=== PATIENT | female | born 1955 | race Caucasian/White ===

== ENCOUNTER → 2017-05-03 09:42 | Day surgery (SDC) | payer BC ==
[~2017-05-03 09:42] MED LIST: Buffered Lidocaine 0.9% SYRIN* 5 ML/SYR SYRINGE INTRADERM ONE; Buffered Lidocaine 0.9% SYRIN* 5 ML/SYR SYRINGE ONE; Dexamethasone IV* 4 MG/ML 1 ML (4 MG) IV SLOW PU ONE; Dexamethasone IV* 4 MG/ML 1 ML (4 MG) ONE; Famotidine IV* 10 MG/ML 2 ML (20 mg) IV ONE; Famotidine IV* 10 MG/ML 2 ML (20 mg) ONE; HYDROcodone/ACETAMIN 5-325 MG* 1 TAB PO PRN; Ketorolac INJ* 30 MG/ML 1 ML VIAL IV PRN; Ketorolac INJ* 30 MG/ML 1 ML VIAL ONE; Lidocaine 2% PF * 5 ML VIAL ONE; Midazolam* 1 MG/ML 5 ML VIAL (5 MG) ONE; Mivacurium Chloride* 20 MG/10 ML VIAL IV ONE; Ondansetron INJ* 2 MG/ML VIAL ONE; PROCHLORPERAZINE INJ 5 MG/ML 2 ML VIAL IV PRN; Propofol* 10 MG/ML 20 ML BTL IV PUSH ONE; fentaNYL* 50 MCG/ML 2 ML VIAL (100 MCG VIAL) IV PRN; fentaNYL* 50 MCG/ML 2 ML VIAL (100 MCG VIAL) ONE; oxyCODONE/Acetamin 5/325 MG* TAB PO PRN
[2017-05-03 14:57] VITALS: BP 141/77
--- NOTE | 2017-05-03 19:42 | OP ---
DATE OF OPERATION: 05/03/17 - [facility] DATE OF : 59 SURGEON: Giuseppe Figueroa MD ANESTHESIOLOGIST: Rodrigo Bruno MD ANESTHESIA: General PRE-OP DIAGNOSIS: Lymph node enlargement, fine needle aspiration was not definitive for neoplasm. POST-OP DIAGNOSIS: Lymph node enlargement, fine needle aspiration was not definitive for neoplasm. OPERATIVE PROCEDURE: Left open deep jugular node resection. INDICATIONS: This 62-year-old female presented with left neck lymph node. Fine needle aspiration was nonconclusive, elected for surgical excision. DESCRIPTION OF PROCEDURE: The patient was taken to the operating room, general anesthesia was given, the patient was intubated. Left neck was then prepped and draped in the usual fashion. A curvilinear incision was made approximately 2 cm below the angle of the mandible. Subplatysmal flaps were elevated. Sternocleidomastoid was identified and retracted out laterally. Deep jugular node was identified. Careful blunt and sharp dissection was carried out of two large nodes. These were removed. The wound was copiously irrigated. Small TLS drain was then inserted. Wound closed in two layers. Small dressing was applied. The patient was awakened and sent to recovery room in stable condition. Instrument and sponge counts correct. Blood loss minimal. [id number]/[facility] #: [id number] [facility]
[2017-05-05 18:12] LABS: HS/VZ Source NECK; Varicella Zoster Result Negative (Negative); Varicella Zoster Source NECK
[2017-05-09 17:59] LABS: BLYMF Source Left neck LN; BLYMF Tissue ID S17 11483 C
== END | disposition home or self-care (01) ==
LOC: OR 09:42
PROVIDERS: ATTEND Otolaryngology
DX: C83.31 Diffuse large B-cell lymphoma, lymph nodes of head, face, and neck (principal); K21.9 Gastro-esophageal reflux disease without esophagitis; F41.9 Anxiety disorder, unspecified
CPT/HCPCS: 87070; 87102; 87116; 87205; 87206; 87252; 87529; 87798; 88184; 88185; 88188; 88271; 88291; 88307; 88341; 88342; J1100; J1885; J2250; J2405; J2704; J3010

== ENCOUNTER 2017-12-09 19:26 | Emergency (ER) | payer BC ==
--- OUTSIDE RECORDS SUMMARY | 2017-12-09 19:32 | XMS REPORT | Continuity of Care Document ---
:1955 Author Organization [facility] Support Name Relationship Address Phone HOA THORNTON spouse [address] [place] [address] HOA THORNTON spouse [address] [place] [address] Allergies and Intolerances No Known Allergies Medications RxNorm Medication Dose Route Instructions Start Date End Date Status citracal 1 oral orally qday Active fish oil 1200mg oral orally qday Active garlic 1 oral orally qday Active glucosamine 1 oral orally qday Active mvi 1 oral orally qday Active [id number] Simvastatin 40 MG 40 mg oral orally every day Active Oral Tablet Problems Code Code System Problem Name Start Date End Date Status [id number] SNOMED-CT Sleep apnea U Active Procedures Code Code System Procedure Date BREAST BX U TUBAL LIGATION 1993 Results Microbiology Results w Susceptibilities Order: CULTURE URINE Specimen Source: Urine Body Site: Urine specimen collection, clean catchCultural Observations:Rare colonies of mixed growth consistent with vaginal jose [id number] Lab Footnotes:[facility] - [id number] - [address] [place] [address] ARMANI [id number] Order: CULTURE VAGINAL-CERVICAL Specimen Source: Swab Body Site: Entire vaginaDirect Exam:Microscopic evaluation is NOT characteristic of bacterial [id number] Observations:Yeast, Staphylococcus aureus, Streptococcus agalactiae (Group B), or [id number] were NOT isolated.1Performing Lab Footnotes:[facility] - [id number] - [address] [place] [address] ARMANI PHILIPPEOMDejah Social History Code Code System Social History Description Dates Observed Observation [id number] SNOMED CT Current Smoking Unknown if ever Status smoked UNK AdministrativeGender Sex Assigned At Unknown Vital Signs No data in the system Goals Section No data in the system Health Concerns No data in the systemEncounter Diagnosis Date Code Code System Diagnosis Status N76.0 ICD10 ACUTE VAGINITIS Active Advance Directives PT STATES NO ADVANCE DIRECTIVES Directive Type Effective Date Second Worker Notes Supporting Document Name Address Phone No Directive Type 04/30/2012 8:30:00 Not Specified Not Specified Not Specified None No specified AM Family History No data in the system Functional Status No data in the system Immunizations No data in the system Medical Equipment No data in the system Mental Status No data in the system Assessment and Plan Assessments No data in the systemPlan Of Treatment No data in the systemPending Tests No data in the system Hospital Discharge Instructions No data in the system Reason for Visit No data in the system
--- OUTSIDE RECORDS SUMMARY | 2017-12-09 19:34 | XMS REPORT ---
:1955 External Reference #:[id number] Author Organization 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 Payers Type Date Identification Numbers Payment Provider Subscriber Health Maintenance Effective: [facility] ([facility] [place] 05/26/2014 [id number] PayID: [id number] [address] [address] MARGARETTE Michael [address] Medigap Part B Effective: 09/26/2009 Policy Number: BCBS [facility] Isaiah Savage [id number] Expires: 05/28/2010 PayID: [id number] [address] [address] MARGARET[place] Michael [address] Problems Date Description Provider Status Onset: 10/11/2017 Reticulosarcoma of lymph nodes of head, 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 Note: s/p L lymph node mass excisional biopsy -- 05/2017 s/p Chemo and Radiation -- early 2017 Onset: 10/11/2017 Mixed hyperlipidemia Nico Lion PA Active Onset: 08/20/2012 Obstructive sleep apnea syndrome Mia Rojas MD Active Onset: 08/20/2012 Mild major depression, single episode Mia Rojas MD Active Onset: 04/17/2017 Gastro-esophageal reflux disease with Mia Rojas MD Active esophagitis Onset: 11/20/2017 Gastro-esophageal reflux disease with Mia Rojas MD Active esophagitis Family History Date Family Member(s) Problem(s) Comments Mother Hypertension Mother Diabetes, Adult Mother Hypercholesterolemia Vilma Sedorus First Daughter Cancer, Breast Maternal Aunts Diabetes, Adult Social History Type Date Description Comments Occupation Currently Working [employer] Cigarette Use Never Smoked Cigarettes Smoking Patient has never smoked Allergies, Adverse Reactions, Alerts Date Description Reaction Status Severity Comments 03/04/2005 NKDA active Medications Medication Date Status Form Strength Qnty SIG Indications Ordering Provider Amoxicillin 11/28 Active Tablets 875mg 14tabs 1 by J01.00 Crystal mouth Mia twice a MD Antonio day Fluticasone 11/28 Active Suspension 50mcg/Act 48gm 2 sprays J01.00 Crystal in each Mia nostril MD Antonio daily Shingrix 11/20 Active Suspension 50mcg 2units 2 shot Crystal Rec series Mia Alvarez MD Vitamin D 04/17 Active Capsules 2000Unit 1 by E55.9 Crystal mouth Mia every day MD Antonio Bupropion HCL ER 12/05 Active Tablets ER 300mg 30tabs take 1 F32.0 Crystal, () 24HR tablet by Mia mouth MD Antonio once daily Simvastatin 01/17 Active Tablets 40mg 30tabs take one E78.2 tablet by Mia mouth at MD Antonio bedtime Omeprazole 11/[address] 40mg 30caps take 1 K21.0 capsule Mia by mouth MD Antonio once daily Aspirin Ec 10/[address] 81mg 1 by angella mouth Mia every day MD Antonio Glucosamine 07/09 Active Tablets Two Tab Curtis, Chondroitin Daily Avani Triple Strength C, RN MS [employer]OWAVE TECHNICIAN [place]-3 06/03 Active Capsules 1000mg 2 PO bid E78.2 Crystal Mia Alvarez MD Epa/Dha Azithromycin 03/20 Hx Tablets 500mg 5tabs 1 by J01.90 mouth Mia - every day MD Antonio 03/25 Sertraline HCL 01/16 Hx Tablets 25mg 1/2 by F41.1 Crystal mouth Mia - every day MD Antonio 04/17 x 6 d then off Bupropion HCL ER 12/05 Hx Tablets ER 150mg 7tabs take one F32.0 Crystal , (XL) 24HR tablet by Mia - mouth MD Antonio 01/16 morning Simvastatin 01/17 Hx Tablets 20mg 90tabs take one E78.0 tablet by Mia - mouth at MD Antonio 01/17 bedtime Sertraline HCL 01/17 Hx Tablets 50mg 30tabs 1 by F41.1 Crystal mouth Mia - every day MD Antonio 01/16 Metaxalone 10/22 Hx Tablets 400mg 30tabs 1 by M25.511 Crystal mouth Mia - twice a MD Antonio 01/17 day as needed muscle spasm and 1-2 every night at bedtime as needed Famotidine 10/04 Hx Tablets 20mg 180tabs take one K21.9 Crystal tablet by Mia - mouth MD Antonio 11/01 twice a day Vitamin D3 10/04 Hx Capsules 1000Unit 1 by E55.9 Crystal mouth Mia - every day MD Antonio 04/17 Augmentin 07/09 Hx Tablets 875-125mg 20tabs 1 by J01.00 Curtis mouth Avani - twice a CBRENT MS 09/24 day c MICROWAVE TECHNICIAN food Cyclobenzaprine 06/08 Hx Tablets 10mg 30tabs take 05/30 M54.2 Crystal HCL to 1 Mia - tablet MD Antonio 07/09 night at bedtime Sertraline HCL 10/07 Hx Tablets 50mg 45tabs 1 and 2 F41.1 Crystal by mouth Mia - every day MD Antonio 06/08 Meloxicam 07/14 Hx Tablets 15mg 30tabs take 05/30 719.41 Crystal - 1 Mia - tablet MD Antonio 10/07 everyday as needed Cyclobenzaprine 07/14 Hx Tablets 10mg 30tabs take 05/30 719.41 Crystal HCL to 1 Mia - tablet MD Antonio 10/07 night at bedtime Famotidine 07/14 Hx Tablets 20mg 60tabs 1 by M54.2 Crystal mouth Mia - twice a MD Antonio Famotidine 10/30 Hx Tablets 40mg 90tabs 1 by 530.11 Crystal mouth Mia - every day MD Antonio 07/14 Omeprazole 10/[address] 20mg 30caps take 1 787.01 [facility] capsule Mia - by mouth MD Antonio 02/25 once daily Azithromycin 10/13 Hx Tablets 250mg 6tabs 2 tabs [place], day one Avani - and 1 tab BRENT Paulino MS 11/17 daily MICROWAVE TECHNICIAN till gone Nortriptyline 06/13 Hx Capsules 10mg 90caps 1 po qhs 784.0 [place]ang[place], x 1 wk Mia - then 2 MD Antonio 09/11 tabs qhs x 1 wk then 3 po qhs Carisoprodol 04/19 Hx Tablets 350mg 14tabs 1 po q hs 719.41 Curtis prn Avani Paulino RN MS 06/13 Spasms Naproxen 04/19 Hx Tablets 500mg 30tabs 1 po bid 719.41 Curtis prn Avani Paulino RN MS 10/16 MICROWAVE TECHNICIAN Vitamin D 08/02 Hx Tablets 2000Unit 1 po qd E55.9 Crystal Mia Alvarez MD 10/04 Vitamin D 08/02 Hx Capsules 59427Qtdn 8caps 1 po qwk Crystal x 8 wks Mia Alvarez MD 09/11 Ciprofloxacin 05/10 Hx Tablets 500mg 14tabs 1 po bid 789.04 Crystal, Mia Alvarez MD 05/31 Azithromycin 02/23 Hx Tablets 250mg 6tabs 2 tabs 466.0 Crystal day one Mia - and 1 tab MD Antonio 05/10 daily till gone Vitamin D 06/24 Hx Capsules [id number] 8caps 1 po qwk Crystal, (Ergocalciferol) x 8 wks Mia Alvarez MD 12/28 Vitamin D 06/24 Hx Capsules 1000Unit 90caps 1 po qd Crystal Mia Alvarez MD 08/02 Xyzal 06/03 Hx Solution 2.5mg/5ML sample 2 tsp 786.2 [place] daily as Avani - needed Lora RN MS 06/23 for allergies Proventil HFA 06/03 Hx Aerosol 108(90Bas sample 786.2 e) mcg/ac Avani Paulino RN MS 06/23 MICROWAVE TECHNICIAN Famotidine 12/02 Hx Tablets 40mg 30tabs 1 po qd 530.11 [facility] Mia Alvarez MD 06/29 Zyrtec 12/02 Hx Tablets 10mg 30tabs 1 po qhs 477.0 [facility] Mia Alvarez MD 07/09 Prilosec OTC 06/[address] 20mg 30tabs 1 PO qd X 530.11 [facility] 8 WKS Mia - Then prn MD Antonio 06/29 Imitrex 06/26 Hx Tablets 100mg 6tabs 1 PO At 784.0 [facility] Onset Of Mia - Migraine MD Antonio 12/28 Repeat In 2 HRS Amoxicillin 04/09 Hx Tablets 875mg 20tabs 1 PO bid 461.0 Crystal Mia Alvarez MD 06/26 Fexofenadine HCL 12/12 Hx Tablets 180mg 30tabs 1 PO [facility]d 477.0 [facility] 12/02 Amoxicillin 10/24 Hx Tablets 875mg 20tabs 1 po bid 473.0 [facility] Alvarez MD 12/12 Nasacort Aq 10/24 Hx Aerosol 55McG/Act Sample 2 Sprays 473.0 [facility] Each Mia - Nostril Q MD Antonio /2006 Simvastatin 06/13 Hx Tablets 40mg 30tabs Take 1 272.0 [place] Tablet By Avani - Devonte AT BRENT Pauilno MS 08/20 Bedtime Immunizations CPT Code Status Date Vaccine Lot # [id number] Given 04/17/2017 Influenza Vac, 3 Yrs & Older, Quadrivalent, Split, [id number] Im Use 84195 Given 04/19/2016 Influenza Vac, 3 Yrs & Older, Quadrivalent, Split, [id number] Im Use 64282 Given 03/16/2015 Influenza Vac, 3 Yrs & Older, Quadrivalent, Split, [id number] Im Use Q2038 Given 06/04/2014 Fluzone Trivalent Immunization [id number] 80869 Given 09/09/2013 Zoster (Zostavax) [id number] Q2038 Given 02/25/2013 Fluzone Trivalent Immunization [id number] Q2038 Given 02/20/2012 Fluzone Trivalent Immunization [id number] Q2038 Given 04/04/2011 Fluzone Trivalent Immunization [id number] 60551 Given 03/22/2010 Afluria Or Fluvirin Flu Vac Intramuscular [id number] 41971 Given 12/19/2009 Tetanus And Diptheria Toxoids For Adult [id number] Use-preservative free 33216 Given 06/29/2009 Influenza Virus Vaccine Pandemic Formulation - [id number] 58829 Given 06/29/2009 Administration Swine Flu Vaccine [id number] 34540 Given 04/23/2008 Afluria Or Fluvirin Flu Vac Intramuscular 98225 Given 04/23/2008 Afluria Or Fluvirin Flu Vac Intramuscular [id number] 59807 Given 03/20/2007 Afluria Or Fluvirin Flu Vac Intramuscular [id number] 37764 Given 03/15/2005 Afluria Or Fluvirin Flu Vac Intramuscular 75111 Given 04/18/2003 Afluria Or Fluvirin Flu Vac Intramuscular Vital Signs Date Vital Result Comment 11/28/2017 Body Temperature 97.8 F Weight 162.00 lb Heart Rate 84 /min BP Systolic 132 mmHg BP Diastolic 76 mmHg Height 67.25 inches 5'7.25" BMI (Body Mass Index) 25.2 kg/m2 11/20/2017 Weight 165.00 lb Heart Rate 76 /min BP Systolic 148 mmHg BP Diastolic 80 mmHg Height 67.25 inches 5'7.25" BMI (Body Mass Index) 25.6 kg/m2 10/11/2017 Weight 172.12 lb Heart Rate 82 /min BP Systolic 150 mmHg BP Diastolic 79 mmHg Height 67.25 inches 5'7.25" BMI (Body Mass Index) 26.8 kg/m2 08/14/2017 Weight 172.00 lb Heart Rate 80 /min BP Systolic 134 mmHg BP Diastolic 82 mmHg Height 67.25 inches 5'7.25" BMI (Body Mass Index) 26.7 kg/m2 04/17/2017 Weight 187.00 lb Heart Rate 76 /min BP Systolic 128 mmHg BP Diastolic 78 mmHg Height 67.25 inches 5'7.25" BMI (Body Mass Index) 29.1 kg/m2 03/27/2017 Weight 191.38 lb Heart Rate 85 /min BP Systolic 157 mmHg BP Diastolic 88 mmHg Height 67.25 inches 5'7.25" BMI (Body Mass Index) 29.7 kg/m2 03/20/2017 Weight 191.69 lb Heart Rate 83 /min BP Systolic 147 mmHg BP Diastolic 83 mmHg Height 67.25 inches 5'7.25" BMI (Body Mass Index) 29.8 kg/m2 01/16/2017 Weight 191.00 lb Heart Rate 80 /min BP Systolic 132 mmHg BP Diastolic 80 mmHg Height 67.25 inches 5'7.25" BMI (Body Mass Index) 29.7 kg/m2 12/05/2016 Weight 193.00 lb Heart Rate 76 /min BP Systolic 140 mmHg BP Diastolic 78 mmHg Height 67.25 inches 5'7.25" BMI (Body Mass Index) 30.0 kg/m2 08/01/2016 Weight 184.00 lb Heart Rate 88 /min BP Systolic 134 mmHg BP Diastolic 78 mmHg Height 67.25 inches 5'7.25" BMI (Body Mass Index) 28.6 kg/m2 04/19/2016 Weight 175.00 lb Heart Rate 76 /min BP Systolic 140 mmHg BP Diastolic 80 mmHg Height 67.25 inches 5'7.25" BMI (Body Mass Index) 27.2 kg/m2 01/18/2016 Weight 178.00 lb Heart Rate 76 /min BP Systolic 138 mmHg BP Diastolic 78 mmHg Height 67.25 inches 5'7.25" BMI (Body Mass Index) 27.7 kg/m2 10/23/2015 Weight 175.00 lb Heart Rate 76 /min BP Systolic 136 mmHg BP Diastolic 74 mmHg Height 67.25 inches 5'7.25" BMI (Body Mass Index) 27.2 kg/m2 10/05/2015 Weight 176.00 lb Heart Rate 80 /min BP Systolic 134 mmHg BP Diastolic 76 mmHg Height 67.25 inches 5'7.25" BMI (Body Mass Index) 27.4 kg/m2 09/25/2015 Weight 175.25 lb Heart Rate 57 /min BP Systolic 151 mmHg BP Diastolic 86 mmHg Height 67.25 inches 5'7.25" BMI (Body Mass Index) 27.2 kg/m2 07/09/2015 Body Temperature 97.9 F Weight 180.00 lb Heart Rate 65 /min BP Systolic 151 mmHg BP Diastolic 88 mmHg BP Systolic Recheck 151 mmHg BP Diastolic Recheck 82 mmHg Height 67.25 inches 5'7.25" BMI (Body Mass Index) 28.0 kg/m2 06/08/2015 Weight 177.00 lb Heart Rate 80 /min BP Systolic 128 mmHg BP Diastolic 74 mmHg Height 67.25 inches 5'7.25" BMI (Body Mass Index) 27.5 kg/m2 03/16/2015 Weight 174.38 lb Heart Rate 60 /min BP Systolic 148 mmHg BP Diastolic 84 mmHg BP Systolic Recheck 142 mmHg BP Diastolic Recheck 84 mmHg Height 67.25 inches 5'7.25" BMI (Body Mass Index) 27.1 kg/m2 11/10/2014 Weight 165.00 lb Heart Rate 60 /min BP Systolic 138 mmHg BP Diastolic 76 mmHg Height 67.25 inches 5'7.25" BMI (Body Mass Index) 25.6 kg/m2 10/07/2014 Weight 169.00 lb Heart Rate 76 /min BP Systolic 144 mmHg BP Diastolic 90 mmHg Height 67.25 inches 5'7.25" BMI (Body Mass Index) 26.3 kg/m2 07/14/2014 Weight 171.00 lb Heart Rate 76 /min BP Systolic 144 mmHg BP Diastolic 72 mmHg Height 67.25 inches 5'7.25" BMI (Body Mass Index) 26.6 kg/m2 08/26/2013 Weight 164.00 lb Heart Rate 64 /min BP Systolic 140 mmHg BP Diastolic 72 mmHg Height 67.25 inches 5'7.25" BMI (Body Mass Index) 25.5 kg/m2 02/25/2013 Weight 163.00 lb Heart Rate 68 /min BP Systolic 128 mmHg BP Diastolic 74 mmHg Height 67.25 inches 5'7.25" BMI (Body Mass Index) 25.3 kg/m2 10/30/2012 Weight 159.00 lb Heart Rate 64 /min BP Systolic 124 mmHg BP Diastolic 74 mmHg Height 67.25 inches 5'7.25" BMI (Body Mass Index) 24.7 kg/m2 10/16/2012 Body Temperature 99.0 F Weight 159.00 lb Heart Rate 76 /min BP Systolic 120 mmHg BP Diastolic 70 mmHg Height 67.25 inches 5'7.25" BMI (Body Mass Index) 24.7 kg/m2 08/20/2012 Weight 153.00 lb Heart Rate 60 /min BP Systolic 122 mmHg BP Diastolic 70 mmHg Height 67.25 inches 5'7.25" BMI (Body Mass Index) 23.8 kg/m2 04/16/2012 Weight 150.00 lb Heart Rate 72 /min BP Systolic 132 mmHg BP Diastolic 74 mmHg Height 67.25 inches 5'7.25" BMI (Body Mass Index) 23.3 kg/m2 02/20/2012 Weight 147.00 lb Heart Rate 68 /min BP Systolic 130 mmHg BP Diastolic 60 mmHg Height 67.25 inches 5'7.25" BMI (Body Mass Index) 22.9 kg/m2 11/22/2011 Weight 157.00 lb Heart Rate 66 /min BP Systolic 110 mmHg BP Diastolic 68 mmHg 11/18/2011 Weight 154.00 lb Heart Rate 64 /min BP Systolic 136 mmHg BP Diastolic 72 mmHg Height 67.25 inches 5'7.25" BMI (Body Mass Index) 23.9 kg/m2 10/12/2011 Weight 166.00 lb Heart Rate 72 /min 88AT Rest In Room 94 W/Ambulation BP Systolic 112 mmHg BP Diastolic 70 mmHg O2 Saturation Level with Exercise 100 % 98 W/Ambulation 09/12/2011 Weight 169.00 lb Heart Rate 76 /min BP Systolic 116 mmHg BP Diastolic 64 mmHg Height 67.25 inches 5'7.25" BMI (Body Mass Index) 26.3 kg/m2 06/13/2011 Weight 195.00 lb Heart Rate 76 /min BP Systolic 138 mmHg BP Diastolic 82 mmHg Height 67.25 inches 5'7.25" BMI (Body Mass Index) 30.3 kg/m2 04/19/2011 Weight 192.00 lb Heart Rate 81 /min BP Systolic 148 mmHg BP Diastolic 80 mmHg 07/05/2010 Weight 195.00 lb Heart Rate 72 /min BP Systolic 136 mmHg BP Diastolic 84 mmHg 05/31/2010 Weight 191.00 lb Heart Rate 80 /min BP Systolic 138 mmHg BP Diastolic 82 mmHg 05/10/2010 Body Temperature 97.7 F Weight 190.00 lb Heart Rate 80 /min BP Systolic 130 mmHg BP Diastolic 76 mmHg Urine Dipstick - Blood NEGATIVE Urine Dipstick - Protein NEGATIVE Urine Dipstick - Glucose NEGATIVE 02/23/2010 Body Temperature 98.5 F Weight 190.00 lb Heart Rate 80 /min BP Systolic 132 mmHg BP Diastolic 76 mmHg 12/28/2009 Weight 192.00 lb Heart Rate 68 /min BP Systolic 114 mmHg BP Diastolic 76 mmHg Height 67.25 inches 5'7.25"With Shoes. BMI (Body Mass Index) 29.8 kg/m2 Urine Dipstick - Blood NEGATIVE Urine Dipstick - Protein NEGATIVE Urine Dipstick - Glucose NEGATIVE 06/29/2009 Weight 191.00 lb Heart Rate 80 /min BP Systolic 118 mmHg BP Diastolic 66 mmHg 06/03/2009 Body Temperature 97.4 F Weight 192.00 lb Heart Rate 98 /min BP Systolic 143 mmHg BP Diastolic 79 mmHg 12/02/2008 Weight 193.00 lb Heart Rate 80 /min BP Systolic 110 mmHg BP Diastolic 60 mmHg 06/13/2008 Body Temperature 98.4 F Weight 187.00 lb Heart Rate 80 /min BP Systolic 126 mmHg BP Diastolic 80 mmHg 06/03/2008 Weight 191.00 lb Heart Rate 60 /min BP Systolic 128 mmHg BP Diastolic 80 mmHg 11/06/2007 Weight 187.00 lb Heart Rate 84 /min BP Systolic 118 mmHg BP Diastolic 66 mmHg 06/26/2007 Body Temperature 98.0 F Weight 189.00 lb Heart Rate 109 /min BP Systolic 121 mmHg BP Diastolic 78 mmHg 04/09/2007 Body Temperature 97.1 F Weight 190.00 lb Heart Rate 76 /min BP Systolic 142 mmHg BP Diastolic 82 mmHg 03/20/2007 Weight 188.00 lb Heart Rate 64 /min BP Systolic 132 mmHg BP Diastolic 74 mmHg 12/12/2006 Weight 184.00 lb Heart Rate 60 /min BP Systolic 136 mmHg BP Diastolic 78 mmHg 10/24/2006 Weight 182.00 lb Heart Rate 76 /min BP Systolic 130 mmHg BP Diastolic 68 mmHg 07/25/2006 Weight 179.00 lb Heart Rate 64 /min BP Systolic 120 mmHg BP Diastolic 76 mmHg 06/12/2006 Body Temperature 84.0 F Weight 188.00 lb Heart Rate 84 /min BP Systolic 124 mmHg BP Diastolic 80 mmHg Urine Dipstick - Blood NEGATIVE Urine Dipstick - Protein NEGATIVE Urine Dipstick - Glucose NEGATIVE 03/15/2005 Weight 172.00 lb Heart Rate 81 /min BP Systolic 127 mmHg BP Diastolic 78 mmHg Urine Dipstick - Blood 2+ WBC'S Urine Dipstick - Protein NEGATIVE Urine Dipstick - Glucose NEGATIVE 03/04/2005 Body Temperature 98.1 F Weight 178.00 lb Heart Rate 70 /min BP Systolic 116 mmHg BP Diastolic 73 mmHg Urine Dipstick - Blood 2+ WBC'S Urine Dipstick - Protein TRACE Urine Dipstick - Glucose NEGATIVE Results Test Date Test Result H/L Range Note Comprehensive Met Panel-[facility] 11/20/2017 Sodium 145 mmol/L 135-146 1, 2 Potassium 4.6 mmol/L 3.5-5.2 1 Chloride# 109 mmol/L 97-110 1, 3 Carbon Dioxide 26 mmol/L 24-34 1 Glucose 101 mg/dL 70-105 1 BUN 16 mg/dL 6-26 1 Creatinine 0.8 mg/dL 0.5-1.4 1 Calcium 9.7 mg/dL 8.5-10.2 1 Total Protein 6.4 g/dL 6.0-8.0 1 Albumin 4.6 g/dL 3.6-4.9 1 Globulin 1.8 g/dL Low 2.0-3.5 1 A/G Ratio 2.6 Ratio High 1.0-2.2 1 Total Bilirubin 0.4 mg/dL 0.1-1.3 1 Alkaline Phosphatase 83 U/L 24-140 1 Alt 15 U/L 3-42 1 Ast 16 U/L 8-42 1 Chelsi Egfr >60 >60 1, 4 Non Chelsi Egfr >60 >60 1, 5 Anion Gap 10 mmol/L 5-15 1, 6 Lipid 11/20/2017 Cholesterol 181 mg/dL 50-199 1 Triglycerides 87 mg/dL 30-200 1 HDL 57 mg/dL 35-85 1, 7 Chol/ HDL Ratio 3.2 ratio Low 3.7-5.6 1 VLDL 17 mg/dL 2-29 1 LDL (Calc) 107 mg/dL High 20-99 1, 8 Laboratory test finding 11/20/2017 Vitamin D 25 Hydroxy 36 ng/mL 30-100 1, 9 Hemoglobin A1c 11/20/2017 Hemoglobin A1c 6.0 % High 4.1-5.9 1 Estimated Average Glucose Calc 126 mg/dL 71-140 1 Lipid Treatment 08/14/2017 Cholesterol 222 mg/dL High 50-199 1 Triglycerides 260 mg/dL High 30-200 1 HDL 56 mg/dL 35-85 1, 10 Chol/ HDL Ratio 4.0 ratio 3.7-5.6 1 VLDL 52 mg/dL High 2-29 1 LDL (Calc) 114 mg/dL High 20-99 1, 11 Alt 31 U/L 3-42 1 Ast 20 U/L 8-42 1 Laboratory test finding 08/14/2017 Vitamin D 25 Hydroxy 20 ng/mL Low 30- 100 1, 12 TSH 1.74 uIU/mL 0.35-4.94 1 CBC With Auto Diff 04/17/2017 WBC 7.9 K/uL 4.1-11.0 1 RBC 4.51 M/uL 4.00-5.40 1 Hemoglobin 14.1 gm/dL 12.0-16.0 1 Hematocrit 41.7 % 36.0-47.0 1 MCV 92.5 fL 80.0-97.0 1 MCH 31.1 pg 27.0-32.0 1 MCHC 33.7 g/dL 32.0-36.0 1 RDW 13.4 % 11.5-14.5 1 PLT Count 287 K/ul 140-400 1 MPV 8.4 FL 7.1-10.7 1 Neutrophil 64.9 % 35.0-75.0 1 Lymphocyte 28.0 % 16.0-52.0 1 Monocyte 5.9 % 2.0-10.0 1 Eosinophil 0.6 % 0.0-5.0 1 Basophil 0.6 % 0.0-4.0 1 Abs Neutrophils 5.1 K/uL 2.1-8.0 1 Abs Lymphocytes 2.2 K/uL 0.8-5.5 1 Abs Monocytes 0.5 K/uL 0.1-1.0 1 Abs Eosinophils 0.0 K/uL 0.0-0.5 1 Abs Basophils 0.0 K/uL 0.0-0.3 1 Comprehensive Met Panel-[facility] [place] 04/17/2017 Sodium 143 mmol/L 135-146 1, 13 Potassium 5.1 mmol/L 3.5-5.2 1 Chloride# 107 mmol/L 97-110 1, 14 Carbon Dioxide 27 mmol/L 24-34 1 Glucose 96 mg/dL 70-105 1 Creatinine 0.8 mg/dL 0.5-1.4 1 Calcium 9.6 mg/dL 8.5-10.2 1 Total Protein 6.9 g/dL 6.0-8.0 1 Albumin 4.6 g/dL 3.6-4.9 1 Globulin 2.3 g/dL 2.0-3.5 1 A/G Ratio 2.0 Ratio 1.0-2.2 1 Total Bilirubin 0.5 mg/dL 0.1-1.3 1 Alkaline Phosphatase 85 U/L 24-140 1 Alt 20 U/L 3-42 1 Ast 16 U/L 8-42 1 Chelsi Egfr >60 >60 1, 15 Non Chelsi Egfr >60 >60 1, 16 Anion Gap 9 mmol/L 7-16 1, 17 BUN 13 mg/dL 6-26 1 Lipid 04/17/2017 Cholesterol 190 mg/dL 50-199 1 Triglycerides 147 mg/dL 30-200 1 HDL 47 mg/dL 35-85 1, 18 Chol/ HDL Ratio 4.0 ratio 3.7-5.6 1 VLDL 29 mg/dL 2-29 1 LDL (Calc) 114 mg/dL High 20-99 1, 19 Hemoglobin A1c 04/17/2017 Hemoglobin A1c 6.2 % High 4.1-5.9 1 Estimated Average Glucose Calc 131 71-140 1 Laboratory test finding 04/17/2017 Vit D25oh 35 ng/mL 31-100 1 Comprehensive Met Panel-[facility] 12/05/2016 Sodium 144 mmol/L 135-146 1, 20 Potassium 4.8 mmol/L 3.5-5.2 1 Chloride# 109 mmol/L 97-110 1, 21 Carbon Dioxide 26 mmol/L 24-34 1 Glucose 89 mg/dL 70-105 1 BUN 16 mg/dL 6-26 1 Creatinine 0.8 mg/dL 0.5-1.4 1 Calcium 9.3 mg/dL 8.5-10.2 1 Total Protein 6.7 g/dL 6.0-8.0 1 Albumin 4.3 g/dL 3.6-4.9 1 Globulin 2.4 g/dL 2.0-3.5 1 A/G Ratio 1.8 Ratio 1.0-2.2 1 Total Bilirubin 0.5 mg/dL 0.1-1.3 1 Alkaline Phosphatase 81 U/L 24-140 1 Alt 34 U/L 3-42 1 Ast 25 U/L 8-42 1 Chelsi Egfr >60 >60 1, 22 Non Chelsi Egfr >60 >60 1, 23 Anion Gap 14 mmol/L 7-16 1, 24 Laboratory test finding 12/05/2016 TSH 1.84 uIU/mL 0.35-4.94 1 Free T4 0.88 ng/dL 0.70-1.48 1 Lipid 12/05/2016 Cholesterol 211 mg/dL High 50-199 1 Triglycerides 149 mg/dL 30-200 1 HDL 58 mg/dL 35-85 1, 25 Chol/ HDL Ratio 3.6 ratio Low 3.7-5.6 1 VLDL 30 mg/dL High 2-29 1 LDL (Calc) 123 mg/dL High 20-99 1, 26 Laboratory test finding 12/05/2016 Vit D,25 Hydroxy 34 ng/mL 31-100 1 Hemoglobin A1c 12/05/2016 Hemoglobin A1c 6.3 % High 4.1-5.9 1 Estimated Average Glucose Calc 134 71-140 1 CBC With Auto Diff 08/01/2016 WBC 6.4 K/uL 4.1-11.0 1 RBC 4.60 M/uL 4.00-5.40 1 Hemoglobin 14.1 gm/dL 12.0-16.0 1 Hematocrit 42.6 % 36.0-47.0 1 MCV 92.5 fL 80.0-97.0 1 MCH 30.6 pg 27.0-32.0 1 MCHC 33.0 g/dL 32.0-36.0 1 RDW 13.7 % 11.5-14.5 1 PLT Count 276 K/ul 140-400 1 Neutrophil 58.6 % 35.0-75.0 1 Lymphocyte 31.9 % 16.0-52.0 1 Monocyte 7.5 % 2.0-10.0 1 Eosinophil 0.9 % 0.0-5.0 1 Basophil 1.1 % 0.0-4.0 1 Abs Neutrophils 3.8 K/uL 2.1-8.0 1 Abs Lymphocytes 2.0 K/uL 0.8-5.5 1 Abs Monocytes 0.5 K/uL 0.1-1.0 1 Abs Eosinophils 0.1 K/uL 0.0-0.5 1 Abs Basophils 0.1 K/uL 0.0-0.3 1 Laboratory test finding 08/01/2016 TSH 0.97 uIU/mL 0.35-4.94 1 Vit D,25 Hydroxy 33 ng/mL 31-100 1 Comprehensive Metabolic (CMP) 08/01/2016 Potassium 5.0 mmol/L 3.5-5.2 1 Carbon Dioxide 27 mmol/L 24-34 1 Glucose 111 mg/dL High 70-105 1 BUN 11 mg/dL 6-26 1 Creatinine 0.7 mg/dL 0.5-1.4 1 Calcium 9.7 mg/dL 8.5-10.2 1 Total Protein 6.7 g/dL 6.0-8.0 1 Albumin 4.5 g/dL 3.6-4.9 1 Globulin 2.2 g/dL 2.0-3.5 1 A/G Ratio 2.0 Ratio 1.0-2.2 1 Total Bilirubin 0.4 mg/dL 0.1-1.3 1 Alkaline Phosphatase 81 U/L 24-140 1 Alt 28 U/L 3-42 1 Ast 20 U/L 8-42 1 Chelsi Egfr >60 >60 1, 27 Non Chelsi Egfr >60 >60 1, 28 Chloride 108 mmol/L High 97-107 1 Sodium 145 mmol/L High 134-142 1 Laboratory test finding 08/01/2016 Hemoglobin A1c 6.2 % High 4.1-5.9 1 Lipid 08/01/2016 Cholesterol 209 mg/dL High 50-199 1 Triglycerides 116 mg/dL 30-200 1 HDL 61 mg/dL 35-85 1, 29 Chol/ HDL Ratio 3.4 ratio Low 3.7-5.6 1 VLDL 23 mg/dL 2-29 1 LDL (Calc) 125 mg/dL High 20-99 1, 30 Lipid 04/19/2016 Cholesterol 226 mg/dL High 50-199 1 Triglycerides 190 mg/dL 30-200 1 HDL 57 mg/dL 35-85 1, 31 Chol/ HDL Ratio 4.0 ratio 3.7-5.6 1 VLDL 38 mg/dL High 2-29 1 LDL (Calc) 131 mg/dL High 20-99 1, 32 Laboratory test finding 04/19/2016 Vit D,25 Hydroxy 34 ng/mL 31-100 1 Comprehensive Metabolic (CMP) 04/19/2016 Sodium 138 mmol/L 134-142 1 Potassium 5.5 No visible h <SEE NOTE> mmol/L High 3.5-5.2 1, 33 Chloride 104 mmol/L 97-109 1 Carbon Dioxide 28 mmol/L 24-34 1 Glucose 105 mg/dL 70-105 1 BUN 15 mg/dL 6-26 1 Creatinine 0.7 mg/dL 0.5-1.4 1 Calcium 9.9 mg/dL 8.5-10.2 1 Total Protein 7.1 g/dL 6.0-8.0 1 Albumin 4.8 g/dL 3.6-4.9 1 Globulin 2.3 g/dL 2.0-3.5 1 A/G Ratio 2.1 Ratio 1.0-2.2 1 Total Bilirubin 0.5 mg/dL 0.1-1.3 1 Alkaline Phosphatase 86 U/L 24-140 1 Alt 40 U/L 3-42 1 Ast 24 U/L 8-42 1 Anion Gap 12 mmol/L 6-14 1 Chelsi Egfr >60 >60 1, 34 Non Chelsi Egfr >60 >60 1, 35 Comprehensive Metabolic (CMP) 01/11/2016 Sodium 138 mmol/L 134-142 Potassium 5.8 No visible h <SEE NOTE> mmol/L High 3.5-5.2 36 Chloride 107 mmol/L 97-109 Carbon Dioxide 27 mmol/L 24-34 Glucose 102 mg/dL 70-105 BUN 21 mg/dL 6-26 Creatinine 0.8 mg/dL 0.5-1.4 Calcium 9.9 mg/dL 8.5-10.2 Total Protein 7.0 g/dL 6.0-8.0 Albumin 4.4 g/dL 3.6-4.9 Globulin 2.6 g/dL 2.0-3.5 A/G Ratio 1.7 Ratio 1.0-2.2 Total Bilirubin 0.5 mg/dL 0.1-1.3 Alkaline Phosphatase 74 U/L 24-140 Alt 17 U/L 3-42 Ast 16 U/L 8-42 Anion Gap 10 mmol/L 6-14 Chelsi Egfr >60 >60 37 Non Chelsi Egfr >60 >60 38 Laboratory test finding 01/11/2016 Hemoglobin A1c 6.1 % High 4.1-5.9 Lipid 01/11/2016 Cholesterol 260 mg/dL High 50-199 Triglycerides 104 mg/dL 30-200 HDL 51 mg/dL 35-85 39 Chol/ HDL Ratio 5.1 ratio 3.7-5.6 VLDL 21 mg/dL 2-29 LDL (Calc) 188 mg/dL High 20-99 40 CBC With Auto Diff 09/25/2015 WBC 8.2 K/uL 4.1-11.0 1 RBC 4.41 M/uL 4.00-5.40 1 Hemoglobin 13.6 gm/dL 12.0-16.0 1 Hematocrit 41.5 % 36.0-47.0 1 MCV 94.2 fL 80.0-97.0 1 MCH 30.9 pg 27.0-32.0 1 MCHC 32.9 g/dL 32.0-36.0 1 RDW 13.8 % 11.5-14.5 1 PLT Count 285 K/ul 140-400 1 Neutrophil 65.4 % 35.0-75.0 1 Lymphocyte 27.0 % 16.0-52.0 1 Monocyte 6.7 % 2.0-10.0 1 Eosinophil 0.4 % 0.0-5.0 1 Basophil 0.5 % 0.0-4.0 1 Abs Neutrophils 5.4 K/uL 2.1-8.0 1 Abs Lymphocytes 2.2 K/uL 0.8-5.5 1 Abs Monocytes 0.5 K/uL 0.1-1.0 1 Abs Eosinophils 0.0 K/uL 0.0-0.5 1 Abs Basophils 0.0 K/uL 0.0-0.3 1 Comprehensive Metabolic (CMP) 09/25/2015 Sodium 141 mmol/L 134-142 1 Potassium 5.0 mmol/L 3.5-5.2 1 Chloride 104 mmol/L 97-109 1 Carbon Dioxide 28 mmol/L 24-34 1 Glucose 93 mg/dL 70-105 1 BUN 15 mg/dL 6-26 1 Creatinine 0.7 mg/dL 0.5-1.4 1 Calcium 9.9 mg/dL 8.5-10.2 1 Total Protein 7.1 g/dL 6.0-8.0 1 Albumin 4.6 g/dL 3.6-4.9 1 Globulin 2.5 g/dL 2.0-3.5 1 A/G Ratio 1.8 Ratio 1.0-2.2 1 Total Bilirubin 0.6 mg/dL 0.1-1.3 1 Alkaline Phosphatase 74 U/L 24-140 1 Alt 16 U/L 3-42 1 Ast 15 U/L 8-42 1 Anion Gap 14 mmol/L 6-14 1 Chelsi Egfr >60 >60 1, 41 Non Chelsi Egfr >60 >60 1, 42 Lipid 09/25/2015 Cholesterol 262 mg/dL High 50-199 1 Triglycerides 99 mg/dL 30-200 1 HDL 63 mg/dL 35-85 1, 43 Chol/ HDL Ratio 4.2 ratio 3.7-5.6 1 VLDL 20 mg/dL 2-29 1 LDL (Calc) 179 mg/dL High 20-99 1, 44 Laboratory test finding 09/25/2015 Vit D,25 Hydroxy 31 ng/mL 31-100 1 Hemoglobin A1c 6.2 % High 4.1-5.9 1 Laboratory test finding 10/07/2014 Vit D,25 Hydroxy 54 ng/mL 31-100 1 TSH 1.23 uIU/mL 0.35-4.94 1 Free T4 1.19 ng/dL 0.70-1.48 1 Basic (BMP) 10/07/2014 Sodium 142 mmol/L 134-142 1 Potassium 4.7 mmol/L 3.5-5.2 1 Chloride 106 mmol/L 97-109 1 Carbon Dioxide 28 mmol/L 24-34 1 Glucose 97 mg/dL 70-105 1 BUN 16 mg/dL 6-26 1 Creatinine 0.7 mg/dL 0.5-1.4 1 Calcium 10.3 mg/dL High 8.5-10.2 1 Anion Gap 13 mmol/L 6-14 1 Non Chelsi Egfr >60 >60 1, 45 Chelsi Egfr >60 >60 1, 46 Laboratory test finding 08/26/2013 Hepatitis C AB NEGATIVE (Neg) 1, 47 Laboratory test finding 08/26/2013 Vit D,25 Hydroxy 55 ng/mL 31-100 1 CBC With Auto Diff 08/19/2013 WBC 6.6 K/uL 4.1-11.0 48 RBC 4.59 M/uL 4.00-5.40 48 Hemoglobin 14.7 gm/dL 12.0-16.0 48 Hematocrit 42.8 % 36.0-47.0 48 MCV 93.2 fL 80.0-97.0 48 MCH 32.1 pg High 27.0-32.0 48 MCHC 34.4 g/dL 32.0-36.0 48 RDW 13.2 % 11.5-14.5 48 PLT Count 240 K/ul 140-400 48 Neutrophil 53.5 % 35.0-75.0 48 Lymphocyte 36.7 % 16.0-52.0 48 Monocyte 8.2 % 2.0-10.0 48 Eosinophil 0.7 % 0.0-5.0 48 Basophil 0.9 % 0.0-4.0 48 Abs Neutrophils 3.5 K/uL 2.1-8.0 48 Abs Lymphocytes 2.4 K/uL 0.8-5.5 48 Abmon 0.5 K/uL 0.1-1.0 48 Abs Eosinophils 0.0 K/uL 0.0-0.5 48 Abs Basophils 0.1 K/uL 0.0-0.3 48 Comprehensive Metabolic (CMP) 08/19/2013 Sodium 141 mmol/L 134-142 48 Potassium 4.9 mmol/L 3.5-5.2 48 Chloride 110 mmol/L High 97-109 48, 49 Carbon Dioxide 27 mmol/L 24-34 48 Glucose 106 mg/dL High 70-105 48 BUN 17 mg/dL 6-26 48 Creatinine 0.8 mg/dL 0.5-1.4 48 Calcium 9.8 mg/dL 8.5-10.2 48 Total Protein 7.0 g/dL 6.0-8.0 48 Albumin 4.6 g/dL 3.6-4.9 48 Globulin 2.4 g/dL 2.0-3.5 48 A/G Ratio 1.9 Ratio 1.0-2.2 48 Total Bilirubin 0.5 mg/dL 0.1-1.3 48 Alkaline Phosphatase 65 U/L 24-140 48 Alt 14 U/L 3-42 48 Ast 15 U/L 8-42 48 Anion Gap 9 mmol/L 6-14 48 Chelsi Egfr >60 >60 48, 50 Non Chelsi Egfr >60 >60 48, 51 Lipid 08/19/2013 Cholesterol 214 mg/dL High 50-199 48 Triglycerides 89 mg/dL 30-200 48 HDL 58 mg/dL 35-85 48, 52 Chol/ HDL Ratio 3.7 ratio 3.7-5.6 48 VLDL 18 mg/dL 2-29 48 LDL (Calc) 138 mg/dL High 20-99 48, 53 CBC With Auto Diff 10/17/2012 WBC 6.5 K/uL 4.1-11.0 48 RBC 4.14 M/uL 4.00-5.40 48 Hemoglobin 13.4 gm/dL 12.0-16.0 48 Hematocrit 39.4 % 36.0-47.0 48 MCV 95.4 fL 80.0-97.0 48 MCH 32.3 pg High 27.0-32.0 48 MCHC 33.9 g/dL 32.0-36.0 48 RDW 13.6 % 11.5-14.5 48 PLT Count 230 K/ul 140-400 48 Neutrophil 46.6 % 35.0-75.0 48 Lymphocyte 43.3 % 16.0-52.0 48 Monocyte 8.7 % 2.0-10.0 48 Eosinophil 0.5 % 0.0-5.0 48 Basophil 0.9 % 0.0-4.0 48 Abs Neutrophils 3.0 K/uL 2.1-8.0 48 Abs Lymphocytes 2.8 K/uL 0.8-5.5 48 Abs Monocytes 0.6 K/uL 0.1-1.0 48 Abs Eosinophils 0.0 K/uL 0.0-0.5 48 Abs Basophils 0.1 K/uL 0.0-0.3 48 CBC With Auto Diff 10/16/2012 Rejected Test Reason Cancelled 54 Laboratory test finding 10/16/2012 Amylase 44 U/L 29-103 54 Lipase 21 U/L 11-82 54 Hepatic Panel (LFT) 10/16/2012 Total Protein 6.6 g/dL 6.0-8.0 54 Albumin 4.6 g/dL 3.6-4.9 54 Total Bilirubin 0.4 mg/dL 0.1-1.3 54 Direct Bilirubin 0.1 mg/dL 0.0-0.4 54 Alkaline Phosphatase 64 U/L 24-140 54 Alt 13 U/L 3-42 54 Ast 14 U/L 8-42 54 Manual Differential 10/16/2012 Rejected Test Reason Cancelled 54 Laboratory test finding 10/16/2012 H Pylori AB Igg <0.40 U/ML (<0.90) 54 , 55 Comprehensive Metabolic 08/13/2012 Sodium 139 mmol/L 134-142 54 (CMP) Potassium 5.0 mmol/L 3.5-5.2 54 Chloride 106 mmol/L 97-109 54 Carbon Dioxide 28 mmol/L 24-34 54 Glucose 96 mg/dL 70-105 54 BUN 21 mg/dL 6-26 54 Creatinine 0.8 mg/dL 0.5-1.4 54 Calcium 9.6 mg/dL 8.5-10.2 54 Total Protein 6.7 g/dL 6.0-8.0 54 Albumin 4.5 g/dL 3.6-4.9 54 Globulin 2.2 g/dL 2.0-3.5 54 A/G Ratio 2.0 Ratio 1.0-2.2 54 Total Bilirubin 0.6 mg/dL 0.1-1.3 54 Alkaline Phosphatase 71 U/L 24-140 54 Alt 14 U/L 3-42 54 Ast 16 U/L 8-42 54 Anion Gap 10 mmol/L 6-14 54 Chelsi Egfr >60 >60 54, 56 Non Chelsi Egfr >60 >60 54, 57 Lipid 08/13/2012 Cholesterol 198 mg/dL 50-199 54 Triglycerides 45 mg/dL 30-200 54 HDL 59 mg/dL 35-85 54, 58 Chol/ HDL Ratio 3.4 ratio Low 3.7-5.6 54 VLDL 9 mg/dL 2-29 54 LDL (Calc) 130 mg/dL High 20-129 54, 59 Non HDL Cholesterol 139 mg/dL High 20-129 54, 60 Laboratory test finding 08/13/2012 Hemoglobin A1c 5.9 % 4.1-5.9 54 Vit D,25 Hydroxy 36 ng/mL 31-100 54 CBC With Auto Diff 02/13/2012 WBC 6.0 K/uL 4.1-11.0 61 RBC 4.44 M/uL 4.00-5.40 61 Hemoglobin 13.9 gm/dL 12.0-16.0 61 Hematocrit 42.0 % 36.0-47.0 61 MCV 94.5 fL 80.0-97.0 61 MCH 31.3 pg 27.0-32.0 61 MCHC 33.1 g/dL 32.0-36.0 61 RDW 14.2 % 11.5-14.5 61 PLT Count 230 K/ul 140-400 61 Neutrophil 54.3 % 35.0-75.0 61 Lymphocyte 35.1 % 16.0-52.0 61 Monocyte 9.0 % 2.0-10.0 61 Eosinophil 0.5 % 0.0-5.0 61 Basophil 1.1 % 0.0-4.0 61 Abs Neutrophils 3.3 K/uL 2.1-8.0 61 Abs Lymphocytes 2.1 K/uL 0.8-5.5 61 Abs Monocytes 0.5 K/uL 0.1-1.0 61 Abs Eosinophils 0.0 K/uL 0.0-0.5 61 Abs Basophils 0.1 K/uL 0.0-0.3 61 Comprehensive Metabolic (CMP) 02/13/2012 Sodium 141 mmol/L 134-142 61 Potassium 5.0 mmol/L 3.5-5.2 61 Chloride 106 mmol/L 97-109 61 Carbon Dioxide 27 mmol/L 24-34 61 Glucose 100 mg/dL 70-105 61 BUN 16 mg/dL 6-26 61 Creatinine 0.7 mg/dL 0.5-1.4 61 Calcium 10.0 mg/dL 8.5-10.2 61 Total Protein 6.5 g/dL 6.0-8.0 61 Albumin 4.4 g/dL 3.6-4.9 61 Globulin 2.1 g/dL 2.0-3.5 61 A/G Ratio 2.1 Ratio 1.0-2.2 61 Total Bilirubin 0.7 mg/dL 0.1-1.3 61 Alkaline Phosphatase 80 U/L 24-140 61 Alt 14 U/L 3-42 61 Ast 15 U/L 8-42 61 Anion Gap 13 mmol/L 6-14 61 Chelsi Egfr >60 >60 61, 62 Non Chelsi Egfr >60 >60 61, 63 Lipid 02/13/2012 Cholesterol 170 mg/dL 50-199 61 Triglycerides 69 mg/dL 30-200 61 HDL 61 mg/dL 35-85 61, 64 Chol/ HDL Ratio 2.8 ratio Low 3.7-5.6 61 VLDL 14 mg/dL 2-29 61 LDL (Calc) 95 mg/dL 20-129 61, 65 Rast1 11/18/2011 D Pteronyssinus Conc <0.05 66 D Pteronyssinus Class Negative class 66 D Farinae Conc <0.05 66 D Farinae Class Negative class 66 Cat Epithelium Conc <0.05 66 Cat Epithelium Class Negative class 66 Dog Dander Conc <0.05 66 Dog Dander Class Negative class 66 [place] Grass Conc <0.05 66 [place] Grass Class Negative class 66 Damian Conc <0.05 66 Damian Class Negative class 66 House Dust Conc <0.05 66 House Dust Class Negative class 66 Cladosporium Conc <0.05 66 Cladosporium Class Negative class 66 Aspergillus Conc <0.05 66 Aspergillus Class Negative class 66 Alternaria Conc <0.05 66 Alternaria Class Negative class 66 [place]/ Maple Conc <0.05 66 [place]/ Maple Class Negative class 66 [place] Conc <0.05 66 [place] Class Negative class 66 Birch Conc <0.05 66 Birch Class Negative class 66 Ragweed Short Conc <0.05 66 Ragweed Short Class Negative class 66 Lir[place] Quarter Conc <0.05 66 [place] Class Negative class 66 Laboratory test finding 11/18/2011 Total IgE 1 IU/mL 1-165 66 Laboratory test finding 10/13/2011 Vitamin B2 13 67, 68 Laboratory test finding 10/13/2011 Vit D,25 Hydroxy 52 ng/mL 31-100 67 Comprehensive Metabolic (CMP) 10/13/2011 Sodium 138 mmol/L 134-142 67 Potassium 4.8 mmol/L 3.5-5.2 67 Chloride 102 mmol/L 97-109 67 Carbon Dioxide 25 mmol/L 24-34 67 Glucose 95 mg/dL 70-105 67 BUN 13 mg/dL 6-26 67 Creatinine 0.7 mg/dL 0.5-1.4 67 Calcium 9.9 mg/dL 8.5-10.2 67 BUN/CR 18 ratio 12-20 67 Total Protein 7.0 g/dL 6.0-8.0 67 Albumin 4.3 g/dL 3.6-4.9 67 Globulin 2.7 g/dL 2.0-3.5 67 A/G Ratio 1.6 Ratio 1.0-2.2 67 Total Bilirubin 0.6 mg/dL 0.1-1.3 67 Alkaline Phosphatase 71 U/L 24-140 67 Alt 11 U/L 3-42 67 Ast 13 U/L 8-42 67 Anion Gap 16 mmol/L High 6-14 67 Chelsi Egfr >60 >60 67, 69 Non Chelsi Egfr >60 >60 67, 70 Laboratory test finding 10/13/2011 Magnesium 2.1 mg/dL 1.5-2.7 67 CBC With Auto Diff 10/13/2011 WBC 13.4 K/uL High 4.1-11.0 67 RBC 4.08 M/uL 4.00-5.40 67 Hemoglobin 12.8 gm/dL 12.0-16.0 67 Hematocrit 38.3 % 36.0-47.0 67 MCV 93.9 fL 80.0-97.0 67 MCH 31.3 pg 27.0-32.0 67 MCHC 33.4 g/dL 32.0-36.0 67 RDW 13.3 % 11.5-14.5 67 PLT Count 271 K/ul 140-400 67 Neutrophil 75.3 % High 35.0-75.0 67 Lymphocyte 14.0 % Low 16.0-52.0 67 Monocyte 10.1 % High 2.0-10.0 67 Eosinophil 0.1 % 0.0-5.0 67 Basophil 0.5 % 0.0-4.0 67 Abs Neutrophils 10.1 K/uL High 2.1-8.0 67 Abs Lymphocytes 1.9 K/uL 0.8-5.5 67 Abs Monocytes 1.4 K/uL High 0.1-1.0 67 Abs Eosinophils 0.0 K/uL 0.0-0.5 67 Abs Basophils 0.1 K/uL 0.0-0.3 67 Laboratory test finding 10/13/2011 TSH 1.81 uIU/mL 0.34-5.60 67 Free T4 1.02 ng/dL 0.50-1.60 67 Comprehensive Metabolic (CMP) 09/05/2011 Sodium 141 mmol/L 134-142 71 Potassium 5.1 mmol/L 3.5-5.2 71 Chloride 108 mmol/L 97-109 71 Carbon Dioxide 25 mmol/L 24-34 71 Glucose 86 mg/dL 70-105 71 BUN 19 mg/dL 6-26 71 Creatinine 0.8 mg/dL 0.5-1.4 71 Calcium 9.5 mg/dL 8.5-10.2 71 BUN/CR 25 ratio High 12-20 71 Total Protein 6.5 g/dL 6.0-8.0 71 Albumin 4.5 g/dL 3.6-4.9 71 Globulin 2.0 g/dL 2.0-3.5 71 A/G Ratio 2.3 Ratio High 1.0-2.2 71 Total Bilirubin 0.6 mg/dL 0.1-1.3 71 Alkaline Phosphatase 75 U/L 24-140 71 Alt 15 U/L 3-42 71 Ast 17 U/L 8-42 71 Anion Gap 13 mmol/L 6-14 71 Chelsi Egfr >60 >60 71, 72 Non Chelsi Egfr >60 >60 71, 73 Laboratory test finding 09/05/2011 Hemoglobin A1c 5.9 % 4.1-5.9 71 Lipid 09/05/2011 Cholesterol 124 mg/dL 50-199 71 Triglycerides 54 mg/dL 30-200 71 HDL 46 mg/dL 35-85 71, 74 Chol/ HDL Ratio 2.7 ratio Low 3.7-5.6 71 VLDL 11 mg/dL 2-29 71 LDL (Calc) 67 mg/dL 20-129 71, 75 CBC With Auto Diff 06/06/2011 WBC 6.9 K/uL 4.1-11.0 76 RBC 4.26 M/uL 4.00-5.40 76 Hemoglobin 13.9 gm/dL 12.0-16.0 76 Hematocrit 40.5 % 36.0-47.0 76 MCV 95.1 fL 80.0-97.0 76 MCH 32.6 pg High 27.0-32.0 76 MCHC 34.3 g/dL 32.0-36.0 76 RDW 13.3 % 11.5-14.5 76 PLT Count 260 K/ul 140-400 76 Neutrophil 62.2 % 35.0-75.0 76 Lymphocyte 29.4 % 16.0-52.0 76 Monocyte 7.1 % 2.0-10.0 76 Eosinophil 0.9 % 0.0-5.0 76 Basophil 0.4 % 0.0-4.0 76 Abs Neutrophils 4.3 K/uL 2.1-8.0 76 Abs Lymphocytes 2.0 K/uL 0.8-5.5 76 Abs Monocytes 0.5 K/uL 0.1-1.0 76 Abs Eosinophils 0.1 K/uL 0.0-0.5 76 Abs Basophils 0.0 K/uL 0.0-0.3 76 Comprehensive Metabolic (CMP) 06/06/2011 Sodium 139 mmol/L 136-145 76 Potassium 4.9 mmol/L 3.5-5.1 76 Chloride 107 mmol/L 98-107 76 Carbon Dioxide 27 mmol/L 21-31 76 Glucose 107 mg/dL High 70-105 76 BUN 15 mg/dL 7-25 76 Creatinine 0.8 mg/dL 0.6-1.2 76 Calcium 9.1 mg/dL 8.6-10.3 76 BUN/CR 19 ratio 12-20 76 Total Protein 6.5 g/dL 6.4-8.9 76 Albumin 4.3 g/dL 3.5-5.7 76 Globulin 2.2 g/dL 2.0-3.5 76 A/G Ratio 2.0 Ratio 1.0-2.2 76 Total Bilirubin 0.4 mg/dL 0.3-1.0 76 Alkaline Phosphatase 73 U/L 34-104 76 Alt 20 U/L 7-52 76 Ast 16 U/L 13-39 76 Anion Gap 10 mmol/L 8-16 76 Non Chelsi Egfr >60 >60 76, 77 Chelsi Egfr >60 >60 76, 78 Lipid 06/06/2011 Cholesterol 187 mg/dL 50-199 76 Triglycerides 122 mg/dL 10-150 76 HDL 48 mg/dL 23-92 76, 79 Chol/ HDL Ratio 3.9 ratio 3.7-5.6 76 VLDL 24 mg/dL 2-29 76 LDL (Calc) 115 mg/dL 20-129 76, 80 Laboratory test finding 06/06/2011 Vit D,25 Hydroxy 39 ng/mL 31-100 76 Hemoglobin A1c 6.1 % High 4.1-5.9 76 Lipid Treatment 07/28/2010 Chol 165 mg/dL 50-199 81 Trig 131 mg/dL 10-150 81 HDL 49 mg/dL 35-85 81, 82 Chol/HDL 3.4 ratio Low 3.7-5.6 81 VLDL 26 mg/dL 2-29 81 LDL 90 mg/dL 20-129 81, 83 Alt 27 U/L 5-45 81 Ast 22 U/L 12-40 81 Laboratory test finding 07/28/2010 Vit D,25 Hydroxy 28 ng/mL Low 31-100 81 CBC With Auto Diff 05/10/2010 WBC 10.4 K/ul 4.0-10.9 84 RBC 4.33 M/ul 4.20-5.40 84 Hemoglobin 14.4 GM/dl 12.5-16.0 84 Hematocrit 41.0 % 36.0-47.0 84 MCV 94.8 FL 80.0-97.0 84 MCH 33.2 pg High 27.0-31.0 84 MCHC 35.0 g/dL 32.0-36.0 84 RDW 13.3 % 11.5-14.5 84 Platelet Count 274 K/ul 140-440 84 Neutrophils N/A % 50-70 84 Lymphocytes N/A % 20-44 84 Monocytes N/A % 2-9 84 Eosinophil N/A % 0-4 84 Basophil N/A % 0-2 84 Absolute Neutrophils N/A K/ul 2.05-7.63 84 Absolute Lymphocytes N/A K/ul 0.8-4.8 84 Absolute Monocytes N/A K/ul 0.1-1.0 84 Absolute Eosinophils N/A K/ul 0.1-0.5 84 Absolute Basophils N/A K/ul 0.0-0.3 84 Hematology Comment (Comm2) N/A 84 CMP 05/10/2010 Sodium 140 mmol/L 135-144 84 Potassium 4.5 mmol/L 3.6-5.2 84 Chloride 107 mmol/L 97-110 84 Carbon Dioxide 27 mmol/L 23-32 84 Glucose 92 mg/dL 70-105 84 BUN 14 mg/dL 6-22 84 Creatinine 0.8 mg/dL 0.5-1.3 84 BUN/CR 18 Ratio 84 Calcium 9.8 mg/dL 8.6-10.2 84 Total Protein 7.2 g/dL 5.8-7.8 84 Albumin 4.4 g/dL 3.5-4.8 84 Globulin 2.8 g/dL 2.0-3.5 84 A/G Ratio 1.6 Ratio 1.0-2.2 84 Total Bilirubin 0.6 mg/dL 0.3-1.2 84 Alkaline Phosphatase 78 U/L 24-140 84 Alt 20 U/L 5-45 84 Ast 20 U/L 12-40 84 Anion Gap 11 mmol/L 8-16 84 GFR Calculation > 60 mL/min 60-175 84, 85 GFR For > 60 mL/min 60-175 84, 86 Diff For Manual CBC 05/10/2010 Blast N/A % 84 Promyelocyte N/A % 84 Myelocyte N/A % 84 Metamyelocyte N/A % 84 Band 4 % 2-6 84 Neutrophil 52 % 50-70 84 Lymphocyte 38 % 20-44 84 Monocyte 6 % 2-9 84 Eosinophil N/A % 0-4 84 Basophil N/A % 0-2 84 Platelet Estimate NORMAL 84 RBC Morphology NORMAL 84 Anisocytosis N/A 84 Poikilocytosis N/A 84 Macrocytosis N/A 84 Microcytosis N/A 84 Hypochromasia N/A 84 Atypical Lymphs N/A % 84 Hyperchromia N/A 84 Polychromasia N/A 84 Abnormal Cells N/A 84 Lipid TX Panel 12/15/2009 Ast 22 U/L 12-40 87 Alt 23 U/L 5-45 87 Cholesterol 175 mg/dL 50-199 87 Triglycerides 126 mg/dL 10-150 87 HDL 36 mg/dL 35-85 87, 88 LDL (Calc) 114 mg/dL 20-129 87, 89 Chol/HDL Ratio 4.9 Ratio 3.7-5.6 87, 90 VLDL 25 mg/dL 2-29 87 Laboratory test finding 12/15/2009 Vitamin D, 25 Hydroxy 36 ng/mL 31-100 87 Laboratory test finding 06/22/2009 TSH 1.74 uIU/ml 0.34-5.60 91 Vitamin D, 25 Hydroxy 23 ng/mL Low 31-100 91 Lipid Panel 06/22/2009 Cholesterol 177 mg/dL 50-199 91 Triglycerides 77 mg/dL 10-150 91 HDL 47 mg/dL 35-85 91, 92 Chol/HDL Ratio 3.8 Ratio 3.7-5.6 91, 93 VLDL 15 mg/dL 2-29 91 LDL (Calc) 115 mg/dL 20-129 91, 94 CMP 06/22/2009 Sodium 140 mmol/L 135-144 91 Potassium 4.2 mmol/L 3.6-5.2 91, 95 Chloride 109 mmol/L 97-110 91 Carbon Dioxide 23 mmol/L 23-32 91 Glucose 91 mg/dL 70-105 91 BUN 13 mg/dL 6-22 91 Creatinine 0.7 mg/dL 0.5-1.3 91 BUN/CR 19 Ratio 91 Calcium 9.6 mg/dL 8.6-10.2 91, 96 Total Protein 6.3 g/dL 5.8-7.8 91 Albumin 3.8 g/dL 3.5-4.8 91 Globulin 2.5 g/dL 2.0-3.5 91 A/G Ratio 1.5 Ratio 1.0-2.2 91 Total Bilirubin 0.5 mg/dL 0.3-1.2 91 Alkaline Phosphatase 77 U/L 24-140 91 Alt 23 U/L 5-45 91 Ast 23 U/L 12-40 91 Anion Gap 12 mmol/L 8-16 91 GFR Calculation > 60 mL/min 60-175 91, 97 GFR For > 60 mL/min 60-175 91, 98 CBC With Auto Diff 06/22/2009 WBC 7.1 K/ul 4.0-10.9 91 RBC 4.17 M/ul Low 4.20-5.40 91 Hemoglobin 13.4 GM/dl 12.5-16.0 91 Hematocrit 39.4 % 36.0-47.0 91 MCV 94.4 FL 80.0-97.0 91 MCH 32.0 pg High 27.0-31.0 91 MCHC 33.9 g/dL 32.0-36.0 91 RDW 13.0 % 11.5-14.5 91 Platelet Count 265 K/ul 140-440 91 Neutrophils 61.2 % 50-70 91 Lymphocytes 31.6 % 20-44 91 Monocytes 5.9 % 2-9 91 Eosinophil 0.3 % 0-4 91 Basophil 1.0 % 0-2 91 Absolute Neutrophils 4.3 K/ul 2.05-7.63 91 Absolute Lymphocytes 2.2 K/ul 0.8-4.8 91 Absolute Monocytes 0.4 K/ul 0.1-1.0 91 Absolute Eosinophils 0.0 K/ul Low 0.1-0.5 91 Absolute Basophils 0.1 K/ul 0.0-0.3 91 Hematology Comment (Comm2) N/A 91 Lipid TX Panel 11/27/2008 Ast 24 U/L 12-40 99 Alt 28 U/L 5-45 99 Cholesterol 180 mg/dL 50-199 99 Triglycerides 173 mg/dL High 10-150 99 HDL 49 mg/dL 35-85 99, 100 LDL (Calc) 96 mg/dL 20-129 99, 101 Chol/HDL Ratio 3.7 Ratio 3.7-5.6 99, 102 VLDL 35 mg/dL High 2-29 99 CBC With Auto Diff 06/13/2008 WBC 7.9 K/ul 4.0-10.9 103 RBC 4.51 M/ul 4.20-5.40 103 Hemoglobin 14.1 GM/dl 12.5-16.0 103 Hematocrit 42.2 % 36.0-47.0 103 MCV 93.6 FL 80.0-97.0 103 MCH 31.3 pg High 27.0-31.0 103 MCHC 33.4 g/dL 32.0-36.0 103 RDW 13.3 % 11.5-14.5 103 Platelet Count 314 K/ul 140-440 103 Neutrophils 58.8 % 50-70 103 Lymphocytes 31.9 % 20-44 103 Monocytes 8.1 % 2-9 103 Eosinophil 0.6 % 0-4 103 Basophil 0.6 % 0-2 103 Absolute Neutrophils 4.6 K/ul 2.05-7.63 103 Absolute Lymphocytes 2.5 K/ul 0.8-4.8 103 Absolute Monocytes 0.6 K/ul 0.1-1.0 103 Absolute Eosinophils 0.0 K/ul Low 0.1-0.5 103 Absolute Basophils 0.0 K/ul 0.0-0.3 103 Hematology Comment (Comm2) N/A 103 CMP 06/13/2008 Sodium 143 mmol/L 135-144 103 Potassium 5.3 mmol/L High 3.6-5.2 103 Chloride 107 mmol/L 97-110 103 Carbon Dioxide 24 mmol/L 23-33 103 Glucose 77 mg/dL 70-105 103 BUN 14 mg/dL 6-22 103 Creatinine 0.8 mg/dL 0.5-1.3 103 BUN/CR 18 Ratio 12.0-20.0 103 Calcium 10.1 mg/dL 8.6-10.2 103 Total Protein 7.0 g/dL 5.8-7.8 103 Albumin 4.4 g/dL 3.5-4.8 103 Globulin 2.6 g/dL 2.0-3.5 103 A/G Ratio 1.7 Ratio 1.0-2.2 103 Total Bilirubin 0.7 mg/dL 0.3-1.2 103 Alkaline Phosphatase 86 U/L 24-140 103 Alt 33 U/L 4-45 103 Ast 26 U/L 12-40 103 Anion Gap 17 mmol/L High 8-16 103 GFR Calculation > 60 mL/min 103, 104 GFR For > 60 mL/min 103, 105 Laboratory test finding 06/13/2008 TSH 2.31 uIU/ml 0.34-5.60 103 Lipid TX Panel 04/23/2008 Ast 24 U/L 12-40 106 Alt 27 U/L 4-45 106 Cholesterol 183 mg/dL 50-199 106 Triglycerides 283 mg/dL High 10-150 106 HDL 41 mg/dL 35-85 106, 107 LDL (Calc) 85 mg/dL 20-129 106, 108 Chol/HDL Ratio 4.5 Ratio 106, 109 VLDL 57 mg/dL 106 Lipid TX Panel 10/12/2007 Ast 23 U/L 12-40 106 Alt 30 U/L 4-45 106 Cholesterol 189 mg/dL 50-199 106 Triglycerides 199 mg/dL High 10-150 106 HDL 43 mg/dL 35-85 106 LDL (Calc) 106 mg/dL 20-129 106 Chol/HDL Ratio 4.4 Ratio 106 VLDL 40 mg/dL 106 Lipid TX Panel 06/20/2007 Ast 21 U/L 12-40 106 Alt 25 U/L 4-45 106 Cholesterol 203 mg/dL High 50-199 106 Triglycerides 262 mg/dL High 10-150 106 HDL 41 mg/dL 35-85 106 LDL (Calc) 110 mg/dL 20-129 106 Chol/HDL Ratio 5.0 Ratio 106 VLDL 52 mg/dL 106 Lipid TX Panel 03/14/2007 Ast 32 U/L 12-40 106 Alt 36 U/L 4-45 106 Cholesterol 189 mg/dL 50-199 106 Triglycerides 272 mg/dL High 10-150 106 HDL 43 mg/dL 35-85 106 LDL (Calc) 92 mg/dL 20-129 106 Chol/HDL Ratio 4.4 Ratio 106 VLDL 54 mg/dL 106 Lipid TX Panel 12/07/2006 Ast 25 U/L 12-40 106 Alt 30 U/L 4-45 106 Cholesterol 167 mg/dL 50-199 106 Triglycerides 147 mg/dL 10-150 106 HDL 49 mg/dL 35-85 106 LDL (Calc) 89 mg/dL 20-129 106 Chol/HDL Ratio 3.4 Ratio 106 VLDL 29 mg/dL 106 Lipid TX Panel 10/24/2006 Ast 24 U/L 12-40 106 Alt 25 U/L 4-45 106 Cholesterol 250 mg/dL High 50-199 106 Triglycerides 245 mg/dL High 10-150 106 HDL 45 mg/dL 35-85 106 LDL (Calc) 156 mg/dL High 20-129 106 Chol/HDL Ratio 5.6 Ratio 106 VLDL 49 mg/dL 106 Laboratory test finding 06/12/2006 TSH 2.31 uIU/ml 0.50-6.00 106 Lipid Panel 06/12/2006 Cholesterol 259 mg/dL High 50-199 106 Triglycerides 166 mg/dL High 10-150 106 HDL 51 mg/dL 35-85 106 Chol/HDL Ratio 5.1 Ratio 106 VLDL 33 mg/dL 106 LDL (Calc) 175 mg/dL High 20-129 106 CMP 06/12/2006 Sodium 140 mmol/L 135-144 106 Potassium 5.0 mmol/L 3.6-5.2 106 Chloride 106 mmol/L 97-110 106 Carbon Dioxide 26 mmol/L 23-33 106 Glucose 101 mg/dL (70-99) 106 BUN 13 mg/dL 6-22 106 Creatinine 0.8 mg/dL 0.5-1.3 106 BUN/CR 16 Ratio 12.0-20.0 106 Calcium 9.8 mg/dL 8.6-10.2 106, 110 Total Protein 7.4 g/dL 5.8-7.8 106 Albumin 4.5 g/dL 3.5-4.8 106 Globulin 2.9 g/dL 2.0-3.5 106 A/G Ratio 1.6 Ratio 1.0-2.2 106 Total Bilirubin 0.7 mg/dL 0.3-1.2 106 Alkaline Phosphatase 89 U/L 24-140 106 Alt 37 U/L 4-45 106 Ast 26 U/L 12-40 106 Anion Gap 13 mmol/L 8-16 106 GFR White Male 109 106 GFR White Female 81 106 GFR Black Male 132 106 GFR Black Female 98 106 GFR Guidelines 0 106, 111 CBC With Auto Diff 06/12/2006 WBC 7.8 K/ul 4.0-10.9 106 RBC 4.61 M/ul 4.20-5.40 106 Hemoglobin 14.9 GM/dl 12.5-16.0 106 Hematocrit 42.6 % 36.0-47.0 106 MCV 92.2 FL 80.0-97.0 106 MCH 32.3 pg High 27.0-31.0 106 MCHC 35.0 g/dL 32.0-36.0 106 RDW 12.4 % 11.5-14.5 106 Platelet Count 354 K/ul 140-440 106 Neutrophils 63.4 % 50-70 106 Lymphocytes 26.9 % 20-44 106 Monocytes 8.0 % 2-9 106 Eosinophil 0.8 % 0-4 106 Basophil 0.9 % 0-2 106 Absolute Neutrophils 4.9 K/ul 2.05-7.63 106 Absolute Lymphocytes 2.1 K/ul 0.8-4.8 106 Absolute Monocytes 0.6 K/ul 0.1-1.0 106 Absolute Eosinophils 0.1 K/ul 0.1-0.5 106 Absolute Basophils 0.1 K/ul 0.1-0.3 106 Culture Stool -Centrex 03/07/2005 Stool Culture W/E. Negative for Cam <SEE 112 Coli Eia NOTE> Eia Test For E. Coli Toxins NEGATIVE Laboratory test finding 03/07/2005 C Difficle Toxin A NEGATIVE Giardia/Cryptosporidium 03/07/2005 Cryptosporidium -Centrex NEGATIVE Stool-Centrex Giardia -Centrex NEGATIVENote: Sp <SEE NOTE> 113 CMP 03/04/2005 Sodium 139 mmol/L 135-144 106 Potassium 4.3 mmol/L 3.6-5.2 106 Chloride 107 mmol/L 97-110 106 Carbon Dioxide 25 mmol/L 22-32 106 Glucose 106 mg/dL High 70-105 106 BUN 12 mg/dL 6-22 106 Creatinine 0.8 mg/dL 0.5-1.3 106 BUN/CR 15 Ratio 12.0-20.0 106 Calcium 9.4 mg/dL 8.6-10.2 106 Total Protein 6.8 g/dL 5.8-7.8 106 Albumin 4.3 g/dL 3.5-4.8 106 Globulin 2.5 g/dL 2.0-3.5 106 A/G Ratio 1.7 Ratio 1.0-2.2 106 Total Bilirubin 0.7 mg/dL 0.3-1.2 106 Ast 21 U/L 12-40 106 Alt 19 U/L 4-45 106 Alkaline Phosphatase 94 U/L 24-108 106 Anion Gap 11 mmol/L 8-16 106 Laboratory test finding 03/04/2005 TSH 1.83 uIU/ml 0.50-6.00 106 CBC 03/04/2005 WBC 5.5 K/ul 4.1-10.9 106 RBC 4.34 M/ul 4.20-6.30 106 Hemoglobin 13.7 GM/dl 12.5-15.0 106 Hematocrit 41.2 % 36.0-47.0 106 MCV 94.9 FL 80.0-97.0 106 MCH 31.6 pg 26.0-32.0 106 MCHC 33.3 g/dL 31.0-36.0 106 RDW 12.6 % 11.5-14.5 106 Platelet Count 335 K/ul 140-440 106 Neutrophils 57.1 % 50-70 106 Lymphocytes 34.0 % 20-44 106 Monocytes 7.7 % 2-9 106 Eosinophil 0.5 % 0-4 106 Basophil 0.7 % 0-2 106 Absolute Neutrophils 3.2 K/ul 2.05-7.63 106 Absolute Lymphocytes 1.9 K/ul 0.8-4.8 106 Absolute Monocytes 0.4 K/ul 0.1-1.0 106 Absolute Eosinophils 0.0 K/ul Low 0.1-0.5 106 Absolute Basophils 0.0 K/ul Low 0.1-0.3 106 Laboratory test finding 08/28/2003 Helicobacter Pylori (H. 0.30 Index 0- 0.9 114 Pylori), Igg CMP 07/26/2002 Sodium 140 mmol/L 135-145 Potassium 4.8 mmol/L 3.4-5.3 Chloride 106 mmol/L 98-111 Carbon Dioxide 27 mmol/L 22-33 Glucose 93 mg/dL 70-105 BUN 24 mg/dL 6-26 Creatinine 0.9 mg/dL 0.5-1.5 BUN/CR 27 Ratio High 12.0-20.0 Calcium 9.8 mg/dL 8.6-10.3 Total Protein 7.3 g/dL 6.2-8.3 Albumin 4.4 g/dL 3.5-5.0 Globulin 2.9 g/dL 2.7-4.3 A/G Ratio 1.5 Ratio 1.0-2.2 Total Bilirubin 0.8 mg/dL 0.1-1.3 Ast 18 U/L 8-42 Alt 21 U/L 3-42 Alkaline Phosphatase 90 U/L 24-108 Laboratory test finding 07/26/2002 Esr 13 MM/HR 0-20 TSH 1.40 uIU/ml 0.50-6.00 Folate 10.4 ng/ml 3.0-16.0 CBC 07/26/2002 WBC 6.2 K/ul 4.1-10.9 RBC 4.39 M/ul 4.2-6.3 Hemoglobin 13.7 GM/dl 12.0-16.0 Hematocrit 42.0 % 37.0-51.0 MCV 95.8 FL 80-97 MCH 31.2 pg 26.0-32.0 MCHC 32.6 g/dL 31.0-36.0 RDW 12.3 % 11.5-14.5 Platelet Count 329 K/ul 140-440 Neutrophils 64.2 % 50-70 Lymphocytes 27.5 % 20-44 Monocytes 7.1 % 2-9 Eosinophil 0.6 % 0-4 Basophil 0.6 % 0-2 Absolute Neutrophils 4.1 K/ul 2.05-7.63 Absolute Lymphocytes 1.7 K/ul 0.8-4.8 Absolute Monocytes 0.4 K/ul 0.1-1.0 Absolute Eosinophils 0.0 K/ul Low 0.1-0.5 Absolute Basophils 0.0 K/ul Low 0.1-0.3 Laboratory test finding 07/26/2002 Magnesium 2.3 mg/dL 1.5-2.7 CPK 68 U/L 12-199 [place] Screen NEGATIVE Rheumatoid Factor Screen NEGATIVE Vitamin B12 438 pg/mL 230-1050 1 This sample is drawn by:NB. 2 Updated reference range on new analyzer 3 Updated reference range on new analyzer 4 Concerning GFR Guidelines for Americans: Normal function or mild renal disease, if clinically at risk: >/=60 mL/min Moderately decreased: 30-59 Severely decreased: 15-29 Renal failure: <15 5 Concerning GFR Guidelines: Normal function or mild renal disease, if clinically at risk: >/=60 mL/min Moderately decreased: 30-59 Severely decreased: 15-29 Renal failure: <15 Glomerular Filtration Rate (GFR) is estimated based on the MDRD equation, which assumes a steady state for creatinine as recommended by the National Kidney Disease Education Program in conjunction with the National Institutes of Health and the National Kidney Foundation. Clinical conditions in which it may be necessary to measure GFR by using clearance methods include extremes of age and body size, severe malnutrition or obesity, diseases of skeletal muscle, paraplegia or quadriplegia, vegetarian diet, rapidly changing kidney function, and calculation of the dose of potentially toxic drugs that are excreted by the kidneys. 6 Updated Reference Range 7 Per NCEP ATP III Guidelines: Results lower than 40 mg/dL are suggestive of increased risk for coronary artery disease. Results > or=to 60 mg/dL are considered a negative risk factor. 8 Per NCEP ATP III Guidelines: Normal Population <130 Patients with medical conditions: CHD/DM Optimal: <100 Borderline high: 130-159 High: 160-189 Very high: >189 9 Clinical Guidelines for recommended serum 25(OH)Vitamin D Deficient at less than 20 ng/mL Insufficient at 20 to <30 ng/mL Sufficient at 30-100 ng/mL Toxicity at greater than 100 ng/mL 10 Per NCEP ATP III Guidelines: Results lower than 40 mg/dL are suggestive of increased risk for coronary artery disease. Results > or=to 60 mg/dL are considered a negative risk factor. 11 Per NCEP ATP III Guidelines: Normal Population <130 Patients with medical conditions: CHD/DM Optimal: <100 Borderline high: 130-159 High: 160-189 Very high: >189 12 Clinical Guidelines for recommended serum 25(OH)Vitamin D Deficient at less than 20 ng/mL Insufficient at 20 to <30 ng/mL Sufficient at 30-100 ng/mL Toxicity at greater than 100 ng/mL 13 Updated reference range on new analyzer 14 Updated reference range on new analyzer 15 Concerning GFR Guidelines for Americans: Normal function or mild renal disease, if clinically at risk: >/=60 mL/min Moderately decreased: 30-59 Severely decreased: 15-29 Renal failure: <15 16 Concerning GFR Guidelines: Normal function or mild renal disease, if clinically at risk: >/=60 mL/min Moderately decreased: 30-59 Severely decreased: 15-29 Renal failure: <15 Glomerular Filtration Rate (GFR) is estimated based on the MDRD equation, which assumes a steady state for creatinine as recommended by the National Kidney Disease Education Program in conjunction with the National Institutes of Health and the National Kidney Foundation. Clinical conditions in which it may be necessary to measure GFR by using clearance methods include extremes of age and body size, severe malnutrition or obesity, diseases of skeletal muscle, paraplegia or quadriplegia, vegetarian diet, rapidly changing kidney function, and calculation of the dose of potentially toxic drugs that are excreted by the kidneys. 17 Updated reference range on new analyzer 18 Per NCEP ATP III Guidelines: Results lower than 40 mg/dL are suggestive of increased risk for coronary artery disease. Results > or=to 60 mg/dL are considered a negative risk factor. 19 Per NCEP ATP III Guidelines: Normal Population <130 Patients with medical conditions: CHD/DM Optimal: <100 Borderline high: 130-159 High: 160-189 Very high: >189 20 Updated reference range on new analyzer 21 Updated reference range on new analyzer 22 Concerning GFR Guidelines for Americans: Normal function or mild renal disease, if clinically at risk: >/=60 mL/min Moderately decreased: 30-59 Severely decreased: 15-29 Renal failure: <15 23 Concerning GFR Guidelines: Normal function or mild renal disease, if clinically at risk: >/=60 mL/min Moderately decreased: 30-59 Severely decreased: 15-29 Renal failure: <15 Glomerular Filtration Rate (GFR) is estimated based on the MDRD equation, which assumes a steady state for creatinine as recommended by the National Kidney Disease Education Program in conjunction with the National Institutes of Health and the National Kidney Foundation. Clinical conditions in which it may be necessary to measure GFR by using clearance methods include extremes of age and body size, severe malnutrition or obesity, diseases of skeletal muscle, paraplegia or quadriplegia, vegetarian diet, rapidly changing kidney function, and calculation of the dose of potentially toxic drugs that are excreted by the kidneys. 24 Updated reference range on new analyzer 25 Per NCEP ATP III Guidelines: Results lower than 40 mg/dL are suggestive of increased risk for coronary artery disease. Results > or=to 60 mg/dL are considered a negative risk factor. 26 Per NCEP ATP III Guidelines: Normal Population <130 Patients with medical conditions: CHD/DM Optimal: <100 Borderline high: 130-159 High: 160-189 Very high: >189 27 Concerning GFR Guidelines for Americans: Normal function or mild renal disease, if clinically at risk: >/=60 mL/min Moderately decreased: 30-59 Severely decreased: 15-29 Renal failure: <15 28 Concerning GFR Guidelines: Normal function or mild renal disease, if clinically at risk: >/=60 mL/min Moderately decreased: 30-59 Severely decreased: 15-29 Renal failure: <15 Glomerular Filtration Rate (GFR) is estimated based on the MDRD equation, which assumes a steady state for creatinine as recommended by the National Kidney Disease Education Program in conjunction with the National Institutes of Health and the National Kidney Foundation. Clinical conditions in which it may be necessary to measure GFR by using clearance methods include extremes of age and body size, severe malnutrition or obesity, diseases of skeletal muscle, paraplegia or quadriplegia, vegetarian diet, rapidly changing kidney function, and calculation of the dose of potentially toxic drugs that are excreted by the kidneys. 29 Per NCEP ATP III Guidelines: Results lower than 40 mg/dL are suggestive of increased risk for coronary artery disease. Results > or=to 60 mg/dL are considered a negative risk factor. 30 Per NCEP ATP III Guidelines: Normal Population <130 Patients with medical conditions: CHD/DM Optimal: <100 Borderline high: 130-159 High: 160-189 Very high: >189 31 Per NCEP ATP III Guidelines: Results lower than 40 mg/dL are suggestive of increased risk for coronary artery disease. Results > or=to 60 mg/dL are considered a negative risk factor. 32 Per NCEP ATP III Guidelines: Normal Population <130 Patients with medical conditions: CHD/DM Optimal: <100 Borderline high: 130-159 High: 160-189 Very high: >189 33 5.5 No visible hemolysis. 34 Concerning GFR Guidelines for Americans: Normal function or mild renal disease, if clinically at risk: >/=60 mL/min Moderately decreased: 30-59 Severely decreased: 15-29 Renal failure: <15 35 Concerning GFR Guidelines: Normal function or mild renal disease, if clinically at risk: >/=60 mL/min Moderately decreased: 30-59 Severely decreased: 15-29 Renal failure: <15 Glomerular Filtration Rate (GFR) is estimated based on the MDRD equation, which assumes a steady state for creatinine as recommended by the National Kidney Disease Education Program in conjunction with the National Institutes of Health and the National Kidney Foundation. Clinical conditions in which it may be necessary to measure GFR by using clearance methods include extremes of age and body size, severe malnutrition or obesity, diseases of skeletal muscle, paraplegia or quadriplegia, vegetarian diet, rapidly changing kidney function, and calculation of the dose of potentially toxic drugs that are excreted by the kidneys. 36 5.8 No visible hemolysis. 37 Concerning GFR Guidelines for Americans: Normal function or mild renal disease, if clinically at risk: >/=60 mL/min Moderately decreased: 30-59 Severely decreased: 15-29 Renal failure: <15 38 Concerning GFR Guidelines: Normal function or mild renal disease, if clinically at risk: >/=60 mL/min Moderately decreased: 30-59 Severely decreased: 15-29 Renal failure: <15 Glomerular Filtration Rate (GFR) is estimated based on the MDRD equation, which assumes a steady state for creatinine as recommended by the National Kidney Disease Education Program in conjunction with the National Institutes of Health and the National Kidney Foundation. Clinical conditions in which it may be necessary to measure GFR by using clearance methods include extremes of age and body size, severe malnutrition or obesity, diseases of skeletal muscle, paraplegia or quadriplegia, vegetarian diet, rapidly changing kidney function, and calculation of the dose of potentially toxic drugs that are excreted by the kidneys. 39 Per NCEP ATP III Guidelines: Results lower than 40 mg/dL are suggestive of increased risk for coronary artery disease. Results > or=to 60 mg/dL are considered a negative risk factor. 40 Per NCEP ATP III Guidelines: Normal Population <130 Patients with medical conditions: CHD/DM Optimal: <100 Borderline high: 130-159 High: 160-189 Very high: >189 41 Concerning GFR Guidelines for Americans: Normal function or mild renal disease, if clinically at risk: >/=60 mL/min Moderately decreased: 30-59 Severely decreased: 15-29 Renal failure: <15 42 Concerning GFR Guidelines: Normal function or mild renal disease, if clinically at risk: >/=60 mL/min Moderately decreased: 30-59 Severely decreased: 15-29 Renal failure: <15 Glomerular Filtration Rate (GFR) is estimated based on the MDRD equation, which assumes a steady state for creatinine as recommended by the National Kidney Disease Education Program in conjunction with the National Institutes of Health and the National Kidney Foundation. Clinical conditions in which it may be necessary to measure GFR by using clearance methods include extremes of age and body size, severe malnutrition or obesity, diseases of skeletal muscle, paraplegia or quadriplegia, vegetarian diet, rapidly changing kidney function, and calculation of the dose of potentially toxic drugs that are excreted by the kidneys. 43 Per NCEP ATP III Guidelines: Results lower than 40 mg/dL are suggestive of increased risk for coronary artery disease. Results > or=to 60 mg/dL are considered a negative risk factor. 44 Per NCEP ATP III Guidelines: Normal Population <130 Patients with medical conditions: CHD/DM Optimal: <100 Borderline high: 130-159 High: 160-189 Very high: >189 45 Concerning GFR Guidelines: Normal function or mild renal disease, if clinically at risk: >/=60 mL/min Moderately decreased: 30-59 Severely decreased: 15-29 Renal failure: <15 Glomerular Filtration Rate (GFR) is estimated based on the MDRD equation, which assumes a steady state for creatinine as recommended by the National Kidney Disease Education Program in conjunction with the National Institutes of Health and the National Kidney Foundation. Clinical conditions in which it may be necessary to measure GFR by using clearance methods include extremes of age and body size, severe malnutrition or obesity, diseases of skeletal muscle, paraplegia or quadriplegia, vegetarian diet, rapidly changing kidney function, and calculation of the dose of potentially toxic drugs that are excreted by the kidneys. 46 Concerning GFR Guidelines for Americans: Normal function or mild renal disease, if clinically at risk: >/=60 mL/min Moderately decreased: 30-59 Severely decreased: 15-29 Renal failure: <15 47 NOT INFECTED WITH HCV, UNLESS RECENT INFECTION IS SUSPECTED OR OTHER EVIDENCE EXISTS TO INDICATE HCV INFECTION. Unless otherwise specified, [place] [address] 48 This sample is drawn by:CT 49 Results verified by repeat analysis 50 Concerning GFR Guidelines for Americans: Normal function or mild renal disease, if clinically at risk: >/=60 mL/min Moderately decreased: 30-59 Severely decreased: 15-29 Renal failure: <15 51 Concerning GFR Guidelines: Normal function or mild renal disease, if clinically at risk: >/=60 mL/min Moderately decreased: 30-59 Severely decreased: 15-29 Renal failure: <15 Glomerular Filtration Rate (GFR) is estimated based on the MDRD equation, which assumes a steady state for creatinine as recommended by the National Kidney Disease Education Program in conjunction with the National Institutes of Health and the National Kidney Foundation. Clinical conditions in which it may be necessary to measure GFR by using clearance methods include extremes of age and body size, severe malnutrition or obesity, diseases of skeletal muscle, paraplegia or quadriplegia, vegetarian diet, rapidly changing kidney function, and calculation of the dose of potentially toxic drugs that are excreted by the kidneys. 52 Per NCEP ATP III Guidelines: Results lower than 40 mg/dL are suggestive of increased risk for coronary artery disease. Results > or=to 60 mg/dL are considered a negative risk factor. 53 Per NCEP ATP III Guidelines: Normal Population <130 Patients with medical conditions: CHD/DM Optimal: <100 Borderline high: 130-159 High: 160-189 Very high: >189 54 This sample is drawn by:NB. 55 < 0.90 NEGATIVE > 0.89 AND < 1.09 INDETERMINATE > 1.09 POSITIVE Unless otherwise specified, testing performed by [facility] [address] [place] [address] 56 Concerning GFR Guidelines for Americans: Normal function or mild renal disease, if clinically at risk: >/=60 mL/min Moderately decreased: 30-59 Severely decreased: 15-29 Renal failure: <15 57 Concerning GFR Guidelines: Normal function or mild renal disease, if clinically at risk: >/=60 mL/min Moderately decreased: 30-59 Severely decreased: 15-29 Renal failure: <15 Glomerular Filtration Rate (GFR) is estimated based on the MDRD equation, which assumes a steady state for creatinine as recommended by the National Kidney Disease Education Program in conjunction with the National Institutes of Health and the National Kidney Foundation. Clinical conditions in which it may be necessary to measure GFR by using clearance methods include extremes of age and body size, severe malnutrition or obesity, diseases of skeletal muscle, paraplegia or quadriplegia, vegetarian diet, rapidly changing kidney function, and calculation of the dose of potentially toxic drugs that are excreted by the kidneys. 58 Per NCEP ATP III Guidelines: Results lower than 40 mg/dL are suggestive of increased risk for coronary artery disease. Results > or=to 60 mg/dL are considered a negative risk factor. 59 Per NCEP ATP III Guidelines: Optimal: <100 Near optimal: 100-129 Borderline high: 130-159 High: 160-189 Very high: >189 60 Desirable: <130 Borderline High: 130-159 High: 160-189 Very high: 190 or greater 61 This sample is drawn by:CT 62 Concerning GFR Guidelines for Americans: Normal function or mild renal disease, if clinically at risk: >/=60 mL/min Moderately decreased: 30-59 Severely decreased: 15-29 Renal failure: <15 63 Concerning GFR Guidelines: Normal function or mild renal disease, if clinically at risk: >/=60 mL/min Moderately decreased: 30-59 Severely decreased: 15-29 Renal failure: <15 Glomerular Filtration Rate (GFR) is estimated based on the MDRD equation, which assumes a steady state for creatinine as recommended by the National Kidney Disease Education Program in conjunction with the National Institutes of Health and the National Kidney Foundation. Clinical conditions in which it may be necessary to measure GFR by using clearance methods include extremes of age and body size, severe malnutrition or obesity, diseases of skeletal muscle, paraplegia or quadriplegia, vegetarian diet, rapidly changing kidney function, and calculation of the dose of potentially toxic drugs that are excreted by the kidneys. 64 Per NCEP ATP III Guidelines: Results lower than 40 mg/dL are suggestive of increased risk for coronary artery disease. Results > or=to 60 mg/dL are considered a negative risk factor. 65 Per NCEP ATP III Guidelines: Optimal: <100 Near optimal: 100-129 Borderline high: 130-159 High: 160-189 Very high: >189 66 This sample is drawn by:NB. 67 This sample is drawn by:MM 68 Reference range: 5 to 50 Unit: nmol/L Performed by [facility], [address] [place] [id number] [email or web address], Aby Licona MD, Lab. Director Unless otherwise specified, testing performed by [facility] [address] [place] [id number] 69 Concerning GFR Guidelines for Americans: Normal function or mild renal disease, if clinically at risk: >/=60 mL/min Moderately decreased: 30-59 Severely decreased: 15-29 Renal failure: <15 70 Concerning GFR Guidelines: Normal function or mild renal disease, if clinically at risk: >/=60 mL/min Moderately decreased: 30-59 Severely decreased: 15-29 Renal failure: <15 Glomerular Filtration Rate (GFR) is estimated based on the MDRD equation, which assumes a steady state for creatinine as recommended by the National Kidney Disease Education Program in conjunction with the National Institutes of Health and the National Kidney Foundation. Clinical conditions in which it may be necessary to measure GFR by using clearance methods include extremes of age and body size, severe malnutrition or obesity, diseases of skeletal muscle, paraplegia or quadriplegia, vegetarian diet, rapidly changing kidney function, and calculation of the dose of potentially toxic drugs that are excreted by the kidneys. 71 This sample is drawn by:CT 72 Concerning GFR Guidelines for Americans: Normal function or mild renal disease, if clinically at risk: >/=60 mL/min Moderately decreased: 30-59 Severely decreased: 15-29 Renal failure: <15 73 Concerning GFR Guidelines: Normal function or mild renal disease, if clinically at risk: >/=60 mL/min Moderately decreased: 30-59 Severely decreased: 15-29 Renal failure: <15 Glomerular Filtration Rate (GFR) is estimated based on the MDRD equation, which assumes a steady state for creatinine as recommended by the National Kidney Disease Education Program in conjunction with the National Institutes of Health and the National Kidney Foundation. Clinical conditions in which it may be necessary to measure GFR by using clearance methods include extremes of age and body size, severe malnutrition or obesity, diseases of skeletal muscle, paraplegia or quadriplegia, vegetarian diet, rapidly changing kidney function, and calculation of the dose of potentially toxic drugs that are excreted by the kidneys. 74 Per NCEP ATP III Guidelines: Results lower than 40 mg/dL are suggestive of increased risk for coronary artery disease. Results > or=to 60 mg/dL are considered a negative risk factor. 75 Per NCEP ATP III Guidelines: Optimal: <100 Near optimal: 100-129 Borderline high: 130-159 High: 160-189 Very high: >189 76 This sample is drawn by:NB. 77 Concerning GFR Guidelines: Normal function or mild renal disease, if clinically at risk: >/=60 mL/min Moderately decreased: 30-59 Severely decreased: 15-29 Renal failure: <15 Glomerular Filtration Rate (GFR) is estimated based on the MDRD equation, which assumes a steady state for creatinine as recommended by the National Kidney Disease Education Program in conjunction with the National Institutes of Health and the National Kidney Foundation. Clinical conditions in which it may be necessary to measure GFR by using clearance methods include extremes of age and body size, severe malnutrition or obesity, diseases of skeletal muscle, paraplegia or quadriplegia, vegetarian diet, rapidly changing kidney function, and calculation of the dose of potentially toxic drugs that are excreted by the kidneys. 78 Concerning GFR Guidelines for Americans: Normal function or mild renal disease, if clinically at risk: >/=60 mL/min Moderately decreased: 30-59 Severely decreased: 15-29 Renal failure: <15 79 Per NCEP ATP III Guidelines: Results lower than 40 mg/dL are suggestive of increased risk for coronary artery disease. Results > or=to 60 mg/dL are considered a negative risk factor. 80 Per NCEP ATP III Guidelines: Optimal: <100 Near optimal: 100-129 Borderline high: 130-159 High: 160-189 Very high: >189 81 This sample is drawn by:MM 82 Per NCEP ATP III Guidelines: Results lower than 40 mg/dL are suggestive of increased risk for coronary artery disease. Results > or=to 60 mg/dL are considered a negative risk factor. 83 Per NCEP ATP III Guidelines: Optimal: <100 Near optimal: 100-129 Borderline high: 130-159 High: 160-189 Very high: >189 84 This sample is drawn by:NB. 85 Concerning GFR GUIDELINES: Normal Function or Mild Renal Disease, if clinically at risk: >/=60mL/min Moderately decreased: 30-59 Severely decreased: 15-29 Renal Failure: <15 Glomerular Filtration Rate (GFR) is estimated based on the MDRD equation, which assumes a steady state for creatinine as recommended by the National Kidney Disease Education Program in conjunction with the National Institutes of Health and the National Kidney Foundation. Clinical conditions in which it may be necessary to measure GFR by using clearance methods include extremes of age and body size, severe malnutrition or obesity, diseases of skeletal muscle, paraplegia or quadriplegia, vegetarian diet, rapidly changing kidney function, and calculation of the dose of potentially toxic drugs that are excreted by the kidneys. 86 Concerning GFR GUIDELINES: Normal Function or Mild Renal Disease, if clinically at risk: >/=60mL/min Moderately decreased: 30-59 Severely decreased: 15-29 Renal Failure: <15 87 FASTING This sample is drawn by: DB 88 PER NCEP ATP III GUIDELINES: RESULTS LOWER THAN 40 MG/DL ARE SUGGESTIVE OF INCREASED RISK FOR CORONARY ARTERY DISEASE. RESULTS > OR=TO 60 MG/DL ARE CONSIDERED A NEGATIVE RISK FACTOR. 89 PER NCEP ATP III GUIDELINES: OPTIMAL: <100 NEAR OPTIMAL: 100 - 129 BORDERLINE HIGH: 130 - 159 HIGH: 160 - 189 VERY HIGH: >189 90 INTERPRETATION OF CHOL-HDL RATIO CHD RISK FEMALE MALE VERY HIGH >8.3 >14.3 HIGH 5.6 - 8.3 6.7 - 14.3 AVERAGE 3.7 - 5.6 4.0 - 6.7 BELOW AVERAGE 2.5 - 3.7 2.7 - 4.0 PROTECTED <2.5 <2.7 91 FASTING This sample is drawn by:NB. 92 PER NCEP ATP III GUIDELINES: RESULTS LOWER THAN 40 MG/DL ARE SUGGESTIVE OF INCREASED RISK FOR CORONARY ARTERY DISEASE. RESULTS > OR=TO 60 MG/DL ARE CONSIDERED A NEGATIVE RISK FACTOR. 93 INTERPRETATION OF CHOL-HDL RATIO CHD RISK FEMALE MALE VERY HIGH >8.3 >14.3 HIGH 5.6 - 8.3 6.7 - 14.3 AVERAGE 3.7 - 5.6 4.0 - 6.7 BELOW AVERAGE 2.5 - 3.7 2.7 - 4.0 PROTECTED <2.5 <2.7 94 PER NCEP ATP III GUIDELINES: OPTIMAL: <100 NEAR OPTIMAL: 100 - 129 BORDERLINE HIGH: 130 - 159 HIGH: 160 - 189 VERY HIGH: >189 95 The difference between the most recent result of 5.3 and the current result of 4.2 exceeds the absolute delta value of 0.5 as defined for this test. 96 The difference between the most recent result of 10.1 and the current result of 9.6 exceeds the absolute delta value of 0.3 as defined for this test. 97 Concerning GFR GUIDELINES: Normal Function or Mild Renal Disease, if clinically at risk: >/=60mL/min Moderately decreased: 30-59 Severely decreased: 15-29 Renal Failure: <15 Glomerular Filtration Rate (GFR) is estimated based on the MDRD equation, which assumes a steady state for creatinine as recommended by the National Kidney Disease Education Program in conjunction with the National Institutes of Health and the National Kidney Foundation. Clinical conditions in which it may be necessary to measure GFR by using clearance methods include extremes of age and body size, severe malnutrition or obesity, diseases of skeletal muscle, paraplegia or quadriplegia, vegetarian diet, rapidly changing kidney function, and calculation of the dose of potentially toxic drugs that are excreted by the kidneys. 98 Concerning GFR GUIDELINES: Normal Function or Mild Renal Disease, if clinically at risk: >/=60mL/min Moderately decreased: 30-59 Severely decreased: 15-29 Renal Failure: <15 99 FASTING This sample is drawn by: DB 100 PER NCEP ATP III GUIDELINES: RESULTS LOWER THAN 40 MG/DL ARE SUGGESTIVE OF INCREASED RISK FOR CORONARY ARTERY DISEASE. RESULTS > OR=TO 60 MG/DL ARE CONSIDERED A NEGATIVE RISK FACTOR. 101 PER NCEP ATP III GUIDELINES: OPTIMAL: <100 NEAR OPTIMAL: 100 - 129 BORDERLINE HIGH: 130 - 159 HIGH: 160 - 189 VERY HIGH: >189 102 INTERPRETATION OF CHOL-HDL RATIO CHD RISK FEMALE MALE VERY HIGH >8.3 >14.3 HIGH 5.6 - 8.3 6.7 - 14.3 AVERAGE 3.7 - 5.6 4.0 - 6.7 BELOW AVERAGE 2.5 - 3.7 2.7 - 4.0 PROTECTED <2.5 <2.7 103 This sample is drawn by:CT 104 Concerning GFR GUIDELINES: Normal Function or Mild Renal Disease, if clinically at risk: >/=60mL/min Moderately decreased: 30-59 Severely decreased: 15-29 Renal Failure: <15 Glomerular Filtration Rate (GFR) is estimated based on the MDRD equation, which assumes a steady state for creatinine as recommended by the National Kidney Disease Education Program in conjunction with the National Institutes of Health and the National Kidney Foundation. Clinical conditions in which it may be necessary to measure GFR by using clearance methods include extremes of age and body size, severe malnutrition or obesity, diseases of skeletal muscle, paraplegia or quadriplegia, vegetarian diet, rapidly changing kidney function, and calculation of the dose of potentially toxic drugs that are excreted by the kidneys. 105 Concerning GFR GUIDELINES: Normal Function or Mild Renal Disease, if clinically at risk: >/=60mL/min Moderately decreased: 30-59 Severely decreased: 15-29 Renal Failure: <15 106 FASTING 107 PER NCEP ATP III GUIDELINES: RESULTS LOWER THAN 40 MG/DL ARE SUGGESTIVE OF INCREASED RISK FOR CORONARY ARTERY DISEASE. RESULTS > OR=TO 60 MG/DL ARE CONSIDERED A NEGATIVE RISK FACTOR. 108 PER NCEP ATP III GUIDELINES: OPTIMAL: <100 NEAR OPTIMAL: 100 - 129 BORDERLINE HIGH: 130 - 159 HIGH: 160 - 189 VERY HIGH: >189 109 INTERPRETATION OF CHOL-HDL RATIO CHD RISK FEMALE MALE VERY HIGH >8.3 >14.3 HIGH 5.6 - 8.3 6.7 - 14.3 AVERAGE 3.7 - 5.6 4.0 - 6.7 BELOW AVERAGE 2.5 - 3.7 2.7 - 4.0 PROTECTED <2.5 <2.7 110 RESULT CONFIRMED The difference between the most recent result of 9.4 and the current result of 9.8 exceeds the absolute delta value of 0.3 as defined for this test. 111 Normal Function or Mild Renal Disease, if clinically at risk: >/=60 mL/ min Moderately decreased: 30-59 Severely decreased: 15-29 Renal Failure: <15 Glomerular Filtration Rate (GFR) is estimated based on the MDRD equation, which assumes a steady state for creatinine as recommended by the National Kidney Disease Education Program in conjunction with the National Institutes of Health and the National Kidney Foundation. Clinical conditions in which it may be necessary to measure GFR by using clearance methods include extremes of age and body size, severe malnutrition or obesity, diseases of skeletal muscle, paraplegia or quadriplegia, vegetarian diet, rapidly changing kidney function, and calculation of the dose of potentially toxic drugs that are excreted by the kidneys. 112 Negative for Campylobacter, Salmonella, and Shigella. 113 NEGATIVE Note: Specimen was screened only for the presence of Giardia and Cryptosporidium. For patients from or with a history of travel to a developing country or who have persistent symptoms and/or are immunocompromised, please call the Micro lab ([phone]) to request a concentrated microscopic examination of the specimen. Stool samples are saved for 7 days from the time of result reporting. 114 < .90 Neg (No Immunity) .91- 1.09 Equivocal >=1.10 Positive . Procedures Date CPT Code Description Status Comment 11/15/2017 Mammogram Completed 12/05/2016 88183 Electrocardiogram Complete Completed 11/07/2016 Mammogram Completed 10/31/2016 Bone Mineral Density Test Completed 10/22/2015 Mammogram Completed 10/05/2015 61944 Electrocardiogram Complete Completed 03/16/2015 31061 Destruction Lesion/Any Method Completed Premalignant Lesions 10/07/2014 09219 Electrocardiogram Complete Completed 08/25/2014 Mammogram Completed 08/15/2014 96108 ECHO Transthoracis 2D W Completed Spectral Doppler 10/09/2013 54425 ECHO Transthoracis 2D W Completed Spectral Doppler 09/02/2013 Colonoscopy Completed Document: 09/02/13 - Colonoscopy 08/30/2013 17519 ECHO Transthoracis 2D W Completed Spectral Doppler 08/26/2013 00690 Destruction Lesion/Any Method Completed Premalignant Lesions 08/26/2013 24341 Electrocardiogram Complete Completed 05/15/2013 Mammogram Completed 08/20/2012 68107 Electrocardiogram Complete Completed 05/07/2012 Mammogram Completed 04/16/2012 46626 Electrocardiogram Complete Completed 10/12/2011 92917 Electrocardiogram Complete Completed 06/13/2011 46634 Electrocardiogram Complete Completed 04/19/2010 Mammogram Completed 12/28/2009 48503 Electrocardiogram Complete Completed 04/16/2009 Mammogram Completed 06/12/2006 68012 Electrocardiogram Complete Completed 03/02/2000 26714 Biopsy Skin Lesion Single Completed Encounters Type Date Location Provider CPT E/M Dx Office Visit 11/20/2017 8:45[place] [address] F32.0 E78.2 E55.9 R73.01 K21.0 C83.31 R03.0 G47.01 R07.89 Z68.25 Office Visit 10/11/2017 11:00[place] [address] M67.471 Z68.26 Office Visit 08/14/2017 9:30[place] [address] C83.31 F32.0 E78.2 E55.9 R73.01 K21.0 Office Visit 04/17/2017 8:45[place] [address] F32.0 E78.2 R73.01 E55.9 R22.1 K21.0 Z23 Office Visit 03/27/2017 9:00[place] [address] R22.1 Office Visit 03/20/2017 3:40p [place] [address] R22.1 J01.90 Office Visit 01/16/2017 11:45[place] [address] F32.0 E78.2 R73.01 F41.1 Office Visit 12/05/2016 1:15p [place] [address] Z00.00 E78.2 F32.0 F41.1 E55.9 R73.01 Z12.31 M85.9 Z12.11 K21.0 Office Visit 08/01/2016 8:45[place] [address] E78.2 F41.1 K21.0 R73.01 M25.511 E55.9 R63.5 Office Visit 04/19/2016 8:00[place] [address] F41.1 E78.2 K21.0 E55.9 R73.01 Z23 Office Visit 01/18/2016 9:15[place] [address] E78.0 K21.0 M25.511 F41.1 Office Visit 10/23/2015 9:00[place] [address] R07.2 M25.511 K21.9 R47.02 Office Visit 10/05/2015 10:30[place] [address] Z00.00 M54.2 M25.511 E78.0 F32.0 R73.01 Z12.31 R94.31 E55.9 K21.9 I34.1 Office Visit 09/25/2015 11:40a Avani Major RN [place] [facility] 77038 M54.2 M25.511 Office Visit 07/09/2015 1:20p Avani Major RN [place] [facility] 19301 J01.00 Office Visit 06/08/2015 8:45[place] [address] F32.0 F41.1 M54.2 E78.0 K21.0 R73.01 E55.9 Office Visit 03/16/2015 11:00[place] [address] F41.1 R03.0 E78.0 L57.0 Z23 Office Visit 11/10/2014 11:45[place] [address] 300.02 Office Visit 10/07/2014 11:45[place] [address] 796.2 268.9 424.0 300.02 Office Visit 07/14/2014 2:15p [place] [address] 719.41 530.11 728.85 Office Visit 08/26/2013 9:00[place] [address] V70.0 272.0 424.0 530.11 V76.10 V76.51 V73.89 268.9 702.0 Office Visit 02/25/2013 9:45[place] [address] 530.11 787.01 272.0 327.23 V04.81 Office Visit 10/30/2012 2:00p [place] [address] 787.01 789.06 794.8 Office Visit 10/16/2012 1:45p Mia De Souza MD 30642V 787.01 789.06 Office Visit 08/20/2012 1:15p [place] [address] V70.0 272.0 790.21 268.9 V76.51 327.23 296.21 Office Visit 04/16/2012 3:45[place] [address] V72.81 272.0 Office Visit 02/20/2012 3:30[place] [address] 272.0 784.0 V04.81 Office Visit 11/22/2011 2:20p Avani Major RN [facility] 34599 462 Office Visit 11/18/2011 1:45[place] [address] 785.1 477.0 Office Visit 10/12/2011 2:00p [facility] 87355 785.1 786.50 786.05 Office Visit 09/12/2011 9:45[place] [address] 272.0 790.21 327.23 268.9 784.0 296.21 Office Visit 06/13/2011 1:15p [place] [address] 272.0 268.9 790.21 327.23 784.0 Office Visit 04/19/2011 3:00p Avani Major RN [facility] 67721 719.41 Office Visit 07/05/2010 2:00[place] [address] 272.0 728.71 Office Visit 05/31/2010 2:00[place] [address] 789.04 728.71 Office Visit 05/10/2010 3:00[place] [address] 789.04 Office Visit 02/23/2010 3:00[place] [address] 466.0 Office Visit 12/28/2009 1:15p [place] [address] 272.0 268.9 530.11 V76.51 V82.81 Office Visit 06/29/2009 2:00[place] [address] 272.0 268.9 V04.81 Office Visit 06/03/2009 1:45p Avani Major RN [place] [employer] 12311 786.2 Office Visit 12/02/2008 8:00[place] [address] 272.0 530.11 784.0 564.1 477.0 Office Visit 06/13/2008 1:00[place] [address] 530.11 564.1 V76.51 Office Visit 06/03/2008 10:45[place] [address] 272.0 784.0 Office Visit 11/06/2007 8:15[place] [address] 272.0 784.0 Office Visit 06/26/2007 8:15[place] [address] 272.0 784.0 Office Visit 04/09/2007 6:45p [place] [address] 461.0 Office Visit 03/20/2007 8:15[place] [address] 272.0 477.0 V04.81 Office Visit 12/12/2006 10:00[place] [address] 272.0 727.03 477.0 Office Visit 10/24/2006 8:00[place] [address] 272.0 473.0 Office Visit 07/25/2006 10:15[place] [address] 272.0 Office Visit 06/12/2006 10:15[place] [address] 794.31 272.0 783.1 627.2 Office Visit 03/15/2005 8:15[place] [address] 789.09 789.07 V04.81 Office Visit 03/04/2005 8:15[place] [address] 780.6 787.91 789.01 789.00 Office Visit 03/05/2004 2:30[place] [address] 724.2 Office Visit 10/09/2003 8:20[place] [address] 477.0 536.8 Office Visit 08/28/2003 9:50[place] [address] 789.00 787.2 Office Visit 07/07/2003 9:00a Avani Major RN [facility] 18380 709.8 705.81 Office Visit 05/20/2003 9:20[place] [address] 786.2 Office Visit 04/18/2003 9:50[place] [address] 478.75 784.49 524.60 V04.81 Office Visit 03/06/2003 2:40p Avani Major RN [place] [facility] 71712 465.9 Office Visit 12/24/2002 9:10a Avani Major RN MS [facility] 38388 524.60 522.5 Office Visit 08/28/2002 11:20a Avani Major RN MS [facility] 77851 461.0 Office Visit 08/16/2002 9:30[place] [address] 729.5 Office Visit 07/26/2002 9:00[place] [address] 780.79 729.1 728.89 719.50 Office Visit 08/28/2001 8:20[place] [address] 728.85 816.00 Office Visit 08/06/2001 7:00p [place] [address] 840.9 Office Visit 09/21/2000 11:10a Imani Diaz RN A.N.PTiti 22761 Office Visit 07/24/2000 11:00a Cristy Eller M.D. 84481 Office Visit 07/17/2000 10:20a Cristy Eller M.D. 76415 Plan of Care Future Appointment(s):02/12/2018 11:15 am - Mia Rojas MD at [id number] - Mia Rojas MDJ01.00 Acute maxillary sinusitis, unspecifiedNew Medication:Amoxicillin 875 mgFluticasone Propionate 50 mcg/ActComments:ALSO TO USE SALINE NS, REST, INCREASE FLUIDS, AND TAKE MUCINEX-OTC DIR.Z68.25 Body mass index (BMI) 25.0-25.9, adult
--- OUTSIDE RECORDS SUMMARY | 2017-12-09 19:34 | XMS REPORT ---
:1955 External Reference #:[id number] Author Organization [facility] Address [address] [place] [address] Phone [phone] Care Team Providers Name Role Phone Mia Rojas MD Primary Care Physician Unavailable Payers Type Date Identification Numbers Payment Provider Subscriber Commercial Policy Number: [id number] Of TG Savage PayID: [id number] [address] [address] [place] [address] Medigap Part B Expires: 2014 Policy Number: Cig/[facility] Alessandro Savage [id number] Care [address] [place] [address] Problems Date Description Provider Status Onset: 08/18/2014 Osteochondropathy [facility] Active Onset: 08/18/2014 Ovarian failure [facility] Services Active Onset: 08/18/2014 Overweight Ancillary Services Active Onset: 10/19/2015 Atrophic vulva Ancillary Services Active Onset: 03/15/2011 Obesity Rosa Chong M.D. PTitiC. Inactive Inactive: 08/18/2014 Onset: 03/15/2011 Uterine leiomyoma Rosa Chong M.D. P.C. Inactive Inactive: 08/18/2014 Onset: 03/15/2011 Female climacteric state Rosa Chong M.D. PTitiC. Inactive Inactive: 08/18/2014 Onset: 03/15/2011 Pain of breast Rosa Chowdary Resolved Resolved: 05/17/2012 Family History Date Family Member(s) Problem(s) Comments Number of Children 2 Onset: (01/2017) First Daughter Breast Cancer dx at 39 yo, double mast w/ reconstruction, genetic testing neg Number of Siblings Siblings: 5 Social History Type Date Description Comments Marital Status x 25 yrs as of 2016 Occupation working for [employer] Cigarette Use Never Smoked Cigarettes ETOH Use Currently consumes alcohol Recreational Drug Use Denies Drug Use Smoking Patient has never smoked Daily Caffeine coffee 1-2 cups of coffee daily Exercise Type/Frequency Exercises regularly daily aerobic 4 days weeks and strength training 3 days weekly Seat Belt/Car Seat always uses seat belt STD's HPV Allergies, Adverse Reactions, Alerts Date Description Reaction Status Severity Comments 11/15/2005 NKDA active Medications Medication Date Status Form Strength Qnty SIG Indications Ordering Provider Metrogel-Vagi 11/27/ Active Gel 0.75% 70gm one by way of N76.0 hans Sargent 2017 vagina Kaye, applicatorful POT [facility]NE[facility]ER-C by way of vagina at every night at bedtime x 5 days Avoid alcohol on treatment [place] 3 / Active Capsules 1200mg 2 qd Unknown 0000 Vitamin D3 / Active Capsules 2000Iu qd Unknown Glucosamine / Active Capsules bid Unknown Chondroitin 0000 Triple Stength Omeprazole / Active Capsules 40mg qd Mac[place], 0000 DR Mia MD Simvastatin 00/ Active Tablets 40mg qd Macadam, 0000 MD Mia Bupropion HCL / Active Tablets ER 300mg qd Macadam, ER (XL) 0000 24HR MD Mia Famotidine 05/14/ Hx Tablets 20mg bid Unknown 2012 - 2016 Vitamin C /07/ Hx Capsules 1 po qd Unknown 2011 - 2014 Citracal 04/30/ Hx Tablets ER 1 po qd Unknown 2011 - 24HR 2014 Vitamin D 17/ Hx Capsules 2000Unit 1 po qd Unknown 2010 - 2014 Garlic 03/01/ Hx Capsules 1 po bid Unknown 2009 - 2014 Viactiv Chews 00// Hx Vitd 1 po bid Unknown 0000 - 100Iu,CA // 500Iu 2010 Glucosamine/C / Hx 500mg 1 po qd Unknown hron 0000 - 2007 Simvastatin /00/ Hx Tablets 40mg 1 PO qd Unknown - 2012 Fish Oil / Hx Capsules 1000mg 2 po qd Unknown - 2014 Zyrtec / Hx Tablets 10mg prn Unknown Allergy 0000 - 2011 Glucosamine-C / Hx Capsules 500-400 1 po qd Unknown hondroitin 0000 - 2014 Omeprazole / Hx Capsules 20mg qd Unknown 0000 - DR 2012 Aspirin / Hx Tablets DR 81mg 1 by mouth Unknown 0000 - every day 2016 Sertraline / Hx Tablets 50mg Macadam, HCL 0000 - Mia, 2017 Immunizations CPT Code Status Date Vaccine Lot # [id number] Given 02/10/2009 Influenza B Vaccine Vital Signs Date Vital Result Comment 11/27/2017 BP Systolic 126 mmHg BP Diastolic 74 mmHg Heart Rate 88 /min Weight 164.50 lb Weight in kg's 74.617 10/30/2017 BP Systolic 142 mmHg BP Diastolic 92 mmHg BP Systolic Recheck 142 mmHg repeat BP Diastolic Recheck 80 mmHg repeat Heart Rate 92 /min Height 66 inches 5'6" Weight 166.25 lb BMI (Body Mass Index) 26.8 kg/m2 Height in cm's 167.6 cm Weight in kg's 75.411 10/17/2016 BP Systolic 146 mmHg BP Diastolic 92 mmHg Heart Rate 80 /min Height 66.29 inches 5'6.29" Weight 189.06 lb BMI (Body Mass Index) 30.2 kg/m2 Height in cm's 168.4 cm Weight in kg's 85.759 10/16/2015 BP Systolic 142 mmHg BP Diastolic 86 mmHg Heart Rate 80 /min Height 66.50 inches 5'6.50" Weight 173.12 lb BMI (Body Mass Index) 27.5 kg/m2 Height in cm's 168.9 cm Weight in kg's 78.529 08/18/2014 BP Systolic 124 mmHg BP Diastolic 82 mmHg Heart Rate 72 /min Height 66.50 inches 5'6.50" Weight 171.25 lb BMI (Body Mass Index) 27.2 kg/m2 Height in cm's 168.9 cm Weight in kg's 77.679 05/15/2013 BP Systolic 122 mmHg BP Diastolic 72 mmHg Heart Rate 76 /min Height 65.75 inches 5'5.75" Weight 159.06 lb Urine Dipstick - Protein NEGATIVE Urine Dipstick - Glucose NEGATIVE BMI (Body Mass Index) 25.9 kg/m2 Height in cm's 167.0 cm Weight in kg's 72.151 11/13/2012 BP Systolic 120 mmHg BP Diastolic 80 mmHg Heart Rate 68 /min Weight 159.56 lb Weight in kg's 72.378 05/16/2012 BP Systolic 124 mmHg BP Diastolic 78 mmHg Heart Rate 82 /min Weight 153.06 lb Last Menstrual Period [id number] Spotted For A Few Days Weight in kg's 69.429 04/26/2012 BP Systolic 120 mmHg BP Diastolic 70 mmHg Heart Rate 80 /min Height 65.75 inches 5'5.75" Weight 148.19 lb BMI (Body Mass Index) 24.1 kg/m2 Height in cm's 167.0 cm Weight in kg's 67.218 03/28/2012 BP Systolic 112 mmHg BP Diastolic 70 mmHg Heart Rate 80 /min 03/20/2012 BP Systolic 140 mmHg BP Diastolic 76 mmHg Heart Rate 80 /min Height 66 inches 5'6" Weight 149.44 lb Urine Dipstick - Protein NEGATIVE Urine Dipstick - Glucose NEGATIVE BMI (Body Mass Index) 24.1 kg/m2 Height in cm's 167.6 cm Weight in kg's 67.785 03/15/2011 BP Systolic 120 mmHg BP Diastolic 80 mmHg Height 66.25 inches 5'6.25" Weight 194.12 lb Urine Dipstick - Protein NEGATIVE Urine Dipstick - Glucose NEGATIVE BMI (Body Mass Index) 31.1 kg/m2 Height in cm's 168.3 cm Weight in kg's 88.055 03/02/2010 BP Systolic 134 mmHg BP Diastolic 78 mmHg Height 65.75 inches 5'5.75" Weight 191.00 lb BMI (Body Mass Index) 31.1 kg/m2 Height in cm's 167.0 cm Weight in kg's 86.638 02/10/2009 BP Systolic 128 mmHg BP Diastolic 76 mmHg Height 65.75 inches 5'5.75" Weight 185.00 lb BMI (Body Mass Index) 30.1 kg/m2 Height in cm's 167.0 cm Weight in kg's 83.916 01/16/2008 BP Systolic 138 mmHg BP Diastolic 86 mmHg Height 66.50 inches 5'6.50" Weight 188.00 lb Urine Dipstick - Protein NEGATIVE Urine Dipstick - Glucose NEGATIVE 3 Parity 2 BMI (Body Mass Index) 29.9 kg/m2 Weight in kg's 85.277 12/05/2006 BP Systolic 120 mmHg BP Diastolic 80 mmHg Height 66.50 inches 5'6.50" Weight 179.00 lb Urine Dipstick - Protein NEGATIVE Urine Dipstick - Glucose NEGATIVE Last Menstrual Period [id number] BMI (Body Mass Index) 28.5 kg/m2 Height in cm's 168.9 cm Weight in kg's 81.194 11/16/2005 BP Systolic 112 mmHg BP Diastolic 70 mmHg Height 65.98 inches 5'5.98" Weight 167.50 lb Urine Dipstick - Protein NEGATIVE Urine Dipstick - Glucose NEGATIVE Last Menstrual Period [id number] 3 Parity 2 BMI (Body Mass Index) 27.0 kg/m2 Height in cm's 167.6 cm Weight in kg's 75.978 Results Test Date Test Result H/L Range Note Laboratory test finding 11/27/2017 Culture Urine <pending> Laboratory test finding 11/27/2017 Vaginal Culture <pending> Laboratory test finding 04/16/2012 Bleeding Time 4.0 min 3.0-10.0 Basic Metabolic Panel 04/16/2012 Sodium 143 mmol/L 136-145 Potassium 4.6 mmol/L 3.6-5.2 Chloride 105 mmol/L 100-108 Carbon Dioxide 28 mmol/L 21-32 Glucose 98 mg/dL 70-110 Glucose Range Header The [place] [employer] <SEE NOTE> 1 BUN 12 mg/dL 7-21 Creatinine 0.6 mg/dL 0.6-1.3 Calcium 9.3 mg/dL 8.5-10.8 GFR >60 GFR Reference Normal Kidney Fu <SEE NOTE> 2 CBC W/Auto Differential 04/16/2012 WBC 9.2 K/uL 4.8-10.8 Red Blood Cell 4.34 M/uL 4.20-5.40 Hemoglobin 14.0 gm/dL 12.0-16.0 Hematocrit 40.7 % 36.0-48.0 MCV 93.8 fL 80.0-100.0 MCHC 34.5 % 30.0-36.5 MCH 32.4 pg 27.0-34.0 RDW 11.8 % 11.0-15.0 Platlet Count 255 K/uL 130-450 MPV 8.1 fL 6.0-12.0 Neutrophil 68 % 37-80 Lymphocyte 24 % 10-50 Monocyte 6 % 0-12 Eosinophil 0 % <=8 Basophil 1 % <=3 Davie# 6.3 K/uL 1.8-8.6 Lymphocyte # 2.2 K/uL 0.5-5.0 Monocyte # 0.6 K/uL 0.0-1.3 Eosinophil # 0.0 K/uL 0.0-0.9 Basophil # 0.1 K.uL 0.0-0.3 1 The [place] [employer] recommends that the upper limit of the normal reference range for Glucose be 100 mg/dl. 2 Normal Kidney Function or Mild Disease - GFR >OR=60 Chronic Kidney Disease - GFR 15-59 Renal Failure - GFR < 15 GFR not calculated on patients under 18 years of age. Calculated (estimated) G FR is based on the MDRD Study equation, which assumes a steady state for creatinine. Estimated GFR may not be appropriate for medication dosing. Procedures Date CPT Code Description Status Comment 11/15/2017 Mammogram Completed neg 10/31/2016 56504 Dexa Bone Density Study Completed 10/31/2016 Bone Mineral Density Test Completed normal spine, LBM hip 10/16/2015 81035 Collection Of Capillary Bood Completed 08/18/2014 87930 Dexa Bone Density Study Completed 08/18/2014 40064 Collection Of Capillary Bood Completed 08/27/2013 Colonoscopy Completed nl. Done in [place], Repeat in 10 yrs per pt 05/15/2013 72383 Collection Of Capillary Bood Completed 04/30/2012 60816 D&C/Hysteroscopy Completed 03/28/2012 73676 Endometrial Biopsy Completed 03/20/2012 65158 Collection Of Capillary Bood Completed 03/20/2012 68668 Echography,Transvaginal Completed 04/25/2011 38702 Dexa Bone Density Study Completed 03/21/2011 83203 Echography,Transvaginal Completed 03/15/2011 82418 Collection Of Capillary Bood Completed 04/15/2008 68856 Dexa Bone Density Study Completed 01/16/2008 93888 Collection Of Capillary Bood Completed 11/16/2005 73543 Collection Of Capillary Bood Completed 03/22/2005 46030 Echography,Pelvic Completed (Nonobstetric) Limited Or Follow-Up 01/21/2005 15586 Echography,Transvaginal Completed 01/21/2005 76075 Endometrial Biopsy Completed 01/11/2005 71859 Dexa Bone Density Study Completed 10/26/2004 90282 Echography,Transvaginal Completed 10/15/2004 86010 Collection Of Capillary Bood Completed 10/13/2003 64693 Collection Of Capillary Bood Completed Encounters Type Date Location Provider CPT E/M Dx Office Visit 11/27/2017 9:20a Main Office > 12/27/06 Kaye Sargent, POT ANNEALER-C 71399 N76.0 R10.2 R30.0 Office Visit 10/30/2017 8:50a Main Office > 12/27/06 Germaine Nevarez, DIANA 20110 Z01.419 R03.0 M85.89 Z12.12 E66.3 Z68.26 Z80.3 Office Visit 10/17/2016 8:50a Main Office > 12/27/06 [place] [address] Z01.419 M85.852 N90.5 Z12.12 E66.8 Z68.30 Office Visit 10/16/2015 1:50p Main Office > 12/27/06 [place] [address] Z01.419 R92.2 M85.852 N90.5 Z12.12 E66.3 Z68.27 Office Visit 08/18/2014 8:20a Main Office > 12/27/06 Rosa Chong 76391 V72.31 M.D. P.C. V76.41 278.02 611.71 256.39 Office Visit 05/15/2013 2:20p Main Office > 12/27/06 Rosa Chong 75478 V72.31 M.D. P.C. V76.41 625.6 278.02 Office Visit 11/13/2012 2:20p Main Office > 12/27/06 Rosa Chong 97397 795.00 M.D. P.C. V61.49 Office Visit 04/26/2012 12:30p Main Office > 12/27/06 Rosa Chong M.D. 81320 627.1 P.C. 795.00 Office Visit 03/20/2012 2:20p Main Office > 12/27/06 Rosa Chong 39615 V72.31 M.D. P.C. V76.41 789.04 278.00 Office Visit 03/15/2011 3:20p Main Office > 12/27/06 Rosa Chong 68181 V72.31 M.D. P.C. V76.41 218.9 611.71 627.2 278.00 Office Visit 03/02/2010 2:40p Main Office > 12/27/06 Rosa Chong 83691 V72.31 M.D. P.C. V76.41 218.9 627.3 278.00 Office Visit 02/10/2009 2:20p Main Office > 12/27/06 Rosa Chong 84957 V04.81 M.D. P.C. V72.31 218.9 627.3 278.02 Office Visit 01/16/2008 11:20a Main Office > 12/27/06 Rosa Chong 28186 V72.31 M.D. P.C. V76.41 783.1 218.9 256.39 796.2 Office Visit 12/05/2006 4:00p Main Office > 12/27/06 Rosa Chong 39701 V72.31 M.D. P.C. V76.41 783.1 Office Visit 11/16/2005 9:00a Main Office > 12/27/06 Rosa Chong 33326 V72.31 M.D. P.C. 218.9 473.9 V76.41 625.6 Office Visit 05/06/2005 11:40a Main Office > 12/27/06 Rosa Chong M.D. 00482 627.3 P.C. 627.2 218.9 Plan of Care Future Appointment(s):11/05/2018 8:20 am - Kaye Sargent FNP-C at Main Office > 12/27/705 9:15 am - Mamm/Dexa/Ultrasound at Main Office > - Kaye Sargent FNP-CN76.0 Acute vaginitisNew Medication:Metrogel- Vaginal 0.75 %R10.2 Pelvic and perineal painFollow up:TV USR30.0 Dysuria
--- OUTSIDE RECORDS SUMMARY | 2017-12-09 19:35 | XMS REPORT ---
:1955 External Reference #:[id number] 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 Payers Type Date Identification Numbers Payment Provider Subscriber Health Maintenance Effective: Policy Number: [facility] Savage [facility] ([facility]) 05/26/2014 [id number] PayID: [id number] [address] [address] [place] [id number] Medigap Part B Effective: 09/26/2009 Policy Number: BCBS [facility] Isaiah Savage [id number] Expires: 05/28/2010 PayID: [id number] [address] [address] [place] [phone] Problems Date Description Provider Status Onset: 10/11/2017 [...] Form Strength Qnty SIG Indications Ordering Provider Shingrix 11/20 Active Suspension 50mcg 2units 2 shot Rec series Mia Alvarez MD Vitamin D 04/17 Active Capsules 2000Unit 1 by E55.9 Crystal mouth Mia every day MD Antonio Bupropion HCL ER 12/05 Active Tablets ER 300mg 30tabs take 1 F32.0 Crystal, (XL) 24HR tablet by Miaher norman Alvarez MD once daily Simvastatin 01/17 Active Tablets 40mg 30tabs take one E78.2 Crystal tablet by Miaher norman Alvarez MD bedtime Omeprazole 11/[address] 40mg 30caps 1 by K21.0 Crystal mouth Mia every day MD Antonio Aspirin Ec 10/[address] 81mg 1 by Crystal mouth Mia every day MD Antonio Glucosamine 07/09 Active Tablets Two Tab Curtis, Chondroitin Daily Avani Triple Strength C, RN MS [employer]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 Thicket-3 06/03 Active Capsules 1000mg 2 PO bid E78.2 Crystal Mia Alvarez MD Epa/Dha Azithromycin 03/20 Hx Tablets 500mg 5tabs 1 by J01.90 Crystal mouth Mia - every day MD [...] Hx Tablets 20mg 90tabs take one E78.0 Crystal tablet by Mia - mouth fly Alvarez MD 01/17 bed Sertraline HCL 01/17 Hx Tablets 50mg 30tabs [...] J01.00 Curtis mouth Avani - twice a C, RN MS 09/24 day c 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 Cyclobenzaprine 06/08 Hx Tablets 10mg 30tabs take 2 M54.2 Crystal to 1 Mia - tablet MD Antonio 07/09 night at bedtime Sertraline HCL 10/07 Hx Tablets 50mg 45tabs 1 and 05/30 F41.1 Crystal by mouth Mia - every day MD Antonio 06/08 Meloxicam 07/14 Hx Tablets 15mg 30tabs take 05/30 719.41 Crystal - 1 Mia - tablet MD Antonio 10/07 as needed Cyclobenzaprine 07/14 Hx Tablets 10mg 30tabs take 05/30 719.41 Crystal to 1 Mia - tablet MD Antonio 10/07 night at bedtime Famotidine 07/14 Hx Tablets 20mg 60tabs 1 by M54.2 Crystal mouth Mia - twice a MD Antonio Famotidine 10/30 Hx Tablets 40mg 90tabs 1 by 530.11 Crystal mouth Mia - every day MD Antonio 07/14 Omeprazole 10/[address] 20mg 30caps take 1 787.01 Crystal capsule Mia - by mouth MD Antonio 02/25 once daily Azithromycin 10/13 Hx Tablets 250mg 6tabs 2 tabs Curtis day one Avani - and 1 tab C, RN MS 11/17 daily 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 Nortriptyline 06/13 Hx Capsules 10mg 90caps 1 po qhs 784.0 [place], HCL x 1 wk Mia crocker 2 MD Antonio 09/11 tabs qhs x 1 wk then 3 po qhs Carisoprodol 04/19 Hx Tablets 350mg 14tabs 1 po q hs 719.41 Curtis prn Avani Paulino RN MS 06/13 Spasms Naproxen 04/19 Hx Tablets 500mg 30tabs 1 po bid 719.41 Curtis prn Avani aPulino RN MS 10/16 Vitamin D 08/02 Hx Tablets 2000Unit 1 po qd E55.9 Crystal Mia Alvarez MD 10/04 Vitamin D 08/02 Hx Capsules 86455Hatr 8caps 1 po qwk Crystal x 8 wks Mia Alvarez MD 09/11 Ciprofloxacin 05/10 Hx Tablets 500mg 14tabs 1 po bid 789.04 Crystal, HCL Mia Alvarez MD 05/31 Azithromycin 02/23 Hx Tablets 250mg 6tabs 2 tabs 466.0 Crystal day one Mia Rosales and 1 tab MD Antonio 05/10 daily till gone Vitamin D 06/24 Hx Capsules [id number] 8caps 1 po qwk Crystal, (Ergocalciferol) x 8 wks Mia Alvarez MD 12/28 Vitamin D 06/24 Hx Capsules 1000Unit 90caps 1 po qd Crystal Mia Alvarez MD 08/02 Xyzal 06/03 Hx Solution 2.5mg/5ML sample 2 tsp 786.2 Curtis daily as Avani Paulino RN MS 06/23 for allergies Proventil HFA 06/03 Hx Aerosol 108(90Bas sample 786.2 [place] e) mcg/ac Avani Paulino RN MS 06/23 Famotidine 12/02 Hx Tablets 40mg 30tabs 1 po qd 530.11 Crystal Mia Alvarez MD 06/29 Zyrtec 12/02 Hx Tablets 10mg 30tabs 1 po qhs 477.0 [facility] Mia Alvarez MD 07/09 Prilosec OTC 06/[address] 20mg 30tabs 1 PO qd X 530.11 [facility] - Then heriberto Alvarez MD 06/29 Imitrex 06/26 Hx Tablets 100mg 6tabs 1 PO At 784.0 [facility] - Migraine MD Antonio 12/28 Repeat In 2 HRS Amoxicillin 04/09 Hx Tablets 875mg 20tabs 1 PO bid 461.0 Crystal Mia Alvarez MD 06/26 Fexofenadine HCL 12/12 Hx Tablets 180mg 30tabs 1 PO qd 477.0 Crystal prn Mia Alvarez MD 12/02 Amoxicillin 10/24 Hx Tablets 875mg 20tabs 1 po bid 473.0 Crystal, Mia Alvarez MD 12/12 Nasacort Aq 10/24 Hx Aerosol 55McG/Act Sample 2 Sprays 473.0 Crystal Each Mia - Nostril Carlos Alvaerz MD Simvastatin 06/13 Hx Tablets 40mg 30tabs Take 1 272.0 [place] Tablet By Avani - Mouth AT Lora, RN MS 08/20 Bedtime Immunizations CPT Code Status Date Vaccine Lot # [id number] Given 04/17/2017 Influenza Vac, 3 Yrs & Older, Quadrivalent, Split, [id number] Im Use 63134 Given 04/19/2016 Influenza Vac, 3 Yrs & Older, Quadrivalent, Split, [id number] Im Use 38308 Given 03/16/2015 Influenza Vac, 3 Yrs & Older, Quadrivalent, Split, [id number] Im Use Q2038 Given 06/04/2014 Fluzone Trivalent Immunization [id number] 42278 Given 09/09/2013 Zoster (Zostavax) [id number] Q2038 Given 02/25/2013 Fluzone Trivalent Immunization [id number] Q2038 Given 02/20/2012 Fluzone Trivalent Immunization [id number] Q2038 Given 04/04/2011 Fluzone Trivalent Immunization [id number] 42923 Given 03/22/2010 Afluria Or Fluvirin Flu Vac Intramuscular [id number] 10895 Given 12/19/2009 Tetanus And Diptheria Toxoids For Adult [id number] Use-preservative free 14413 Given 06/29/2009 Influenza Virus Vaccine Pandemic Formulation - [id number] 10623 Given 06/29/2009 Administration Swine Flu Vaccine [id number] 13405 Given 04/23/2008 Afluria Or Fluvirin Flu Vac Intramuscular 15362 Given 04/23/2008 Afluria Or Fluvirin Flu Vac Intramuscular [id number] 47181 Given 03/20/2007 Afluria Or Fluvirin Flu Vac Intramuscular [id number] 03468 Given 03/15/2005 Afluria Or Fluvirin Flu Vac Intramuscular 86643 Given 04/18/2003 Afluria Or Fluvirin Flu Vac Intramuscular Vital Signs Date Vital Result Comment 11/20/2017 Weight 165.00 lb Heart Rate 76 [...] Result H/L Range Note Laboratory test finding 11/20/2017 Vit D 25Oh <pending> Hemoglobin A1c <pending> Lipid Treatment 08/14/2017 Cholesterol 222 mg/dL High 50-199 1 Triglycerides 260 mg/dL High 30-200 1 HDL 56 mg/dL 35-85 1, 2 Chol/ HDL Ratio 4.0 ratio 3.7-5.6 1 VLDL 52 mg/dL High 2-29 1 LDL (Calc) 114 mg/dL High 20-99 1, 3 Alt 31 U/L 3-42 1 Ast 20 U/L 8-42 1 Laboratory test finding 08/14/2017 Vitamin D 25 Hydroxy 20 ng/mL Low 30- 100 1, 4 TSH 1.74 uIU/mL 0.35-4.94 1 CBC With [...] Basophils 0.0 K/uL 0.0-0.3 1 Comprehensive Met Panel-FCM 04/17/2017 Sodium 143 mmol/L 135-146 1, 5 Potassium 5.1 mmol/L 3.5-5.2 1 Chloride# 107 mmol/L 97-110 1, 6 Carbon Dioxide 27 mmol/L 24-34 1 Glucose [...] 8-42 1 Chelsi Egfr >60 >60 1, 7 Non Chelsi Egfr >60 >60 1, 8 Anion Gap 9 mmol/L 7-16 1, 9 BUN 13 mg/dL 6-26 1 Lipid 04/17/2017 Cholesterol 190 mg/dL 50-199 1 Triglycerides 147 mg/dL 30-200 1 HDL 47 mg/dL 35-85 1, 10 Chol/ HDL Ratio 4.0 ratio 3.7-5.6 1 VLDL 29 mg/dL 2-29 1 LDL (Calc) 114 mg/dL High 20-99 1, 11 Hemoglobin A1c 04/17/2017 Hemoglobin A1c 6.2 % High 4.1-5.9 1 Estimated Average Glucose Calc 131 71-140 1 Laboratory test finding 04/17/2017 Vit D25oh 35 ng/mL 31-100 1 Comprehensive Met Panel-FCM 12/05/2016 Sodium 144 mmol/L 135-146 1, 12 Potassium 4.8 mmol/L 3.5-5.2 1 Chloride# 109 mmol/L 97-110 1, 13 Carbon Dioxide 26 mmol/L 24-34 1 Glucose [...] 8-42 1 Chelsi Egfr >60 >60 1, 14 Non Chelsi Egfr >60 >60 1, 15 Anion Gap 14 mmol/L 7-16 1, 16 Laboratory test finding 12/05/2016 TSH 1.84 uIU/mL 0.35-4.94 1 Free T4 0.88 ng/dL 0.70-1.48 1 Lipid 12/05/2016 Cholesterol 211 mg/dL High 50-199 1 Triglycerides 149 mg/dL 30-200 1 HDL 58 mg/dL 35-85 1, 17 Chol/ HDL Ratio 3.6 ratio Low 3.7-5.6 1 VLDL 30 mg/dL High 2-29 1 LDL (Calc) 123 mg/dL High 20-99 1, 18 Laboratory test finding 12/05/2016 Vit D,25 Hydroxy [...] 8-42 1 Chelsi Egfr >60 >60 1, 19 Non Chelsi Egfr >60 >60 1, 20 Chloride 108 mmol/L High 97-107 1 Sodium 145 mmol/L High 134-142 1 Laboratory test finding 08/01/2016 Hemoglobin A1c 6.2 % High 4.1-5.9 1 Lipid 08/01/2016 Cholesterol 209 mg/dL High 50-199 1 Triglycerides 116 mg/dL 30-200 1 HDL 61 mg/dL 35-85 1, 21 Chol/ HDL Ratio 3.4 ratio Low 3.7-5.6 1 VLDL 23 mg/dL 2-29 1 LDL (Calc) 125 mg/dL High 20-99 , 22 Lipid 04/19/2016 Cholesterol 226 mg/dL High 50-199 1 Triglycerides 190 mg/dL 30-200 1 HDL 57 mg/dL 35-85 1, 23 Chol/ HDL Ratio 4.0 ratio 3.7-5.6 1 VLDL 38 mg/dL High 2-29 1 LDL (Calc) 131 mg/dL High 20-99 , 24 Laboratory test finding 04/19/2016 Vit D,25 Hydroxy 34 ng/mL 31-100 1 Comprehensive Metabolic (CMP) 04/19/2016 Sodium 138 mmol/L 134-142 1 Potassium 5.5 No visible h <SEE NOTE> mmol/L High 3.5-5.2 1, 25 Chloride 104 mmol/L 97-109 1 Carbon Dioxide [...] 6-14 1 Chelsi Egfr >60 >60 1, 26 Non Chelsi Egfr >60 >60 1, 27 Comprehensive Metabolic (CMP) 01/11/2016 Sodium 138 mmol/L 134-142 Potassium 5.8 No visible h <SEE NOTE> mmol/L High 3.5-5.2 28 Chloride 107 mmol/L 97-109 Carbon Dioxide 27 [...] 10 mmol/L 6-14 Chelsi Egfr >60 >60 29 Non Chelsi Egfr >60 >60 30 Laboratory test finding 01/11/2016 Hemoglobin A1c 6.1 % High 4.1-5.9 Lipid 01/11/2016 Cholesterol 260 mg/dL High 50-199 Triglycerides 104 mg/dL 30-200 HDL 51 mg/dL 35-85 31 Chol/ HDL Ratio 5.1 ratio 3.7-5.6 VLDL 21 mg/dL 2-29 LDL (Calc) 188 mg/dL High 20-99 32 CBC With Auto Diff 09/25/2015 WBC 8.2 [...] 6-14 1 Chelsi Egfr >60 >60 1, 33 Non Chelsi Egfr >60 >60 1, 34 Lipid 09/25/2015 Cholesterol 262 mg/dL High 50-199 1 Triglycerides 99 mg/dL 30-200 1 HDL 63 mg/dL 35-85 1, 35 Chol/ HDL Ratio 4.2 ratio 3.7-5.6 1 VLDL 20 mg/dL 2-29 1 LDL (Calc) 179 mg/dL High 20-99 1, 36 Laboratory test finding 09/25/2015 Vit D,25 Hydroxy [...] 1 Non Chelsi Egfr >60 >60 1, 37 Chelsi Egfr >60 >60 1, 38 Laboratory test finding 08/26/2013 Hepatitis C AB NEGATIVE (Neg) 1, 39 Laboratory test finding 08/26/2013 Vit D,25 Hydroxy 55 ng/mL 31-100 1 CBC With Auto Diff 08/19/2013 WBC 6.6 K/uL 4.1-11.0 40 RBC 4.59 M/uL 4.00-5.40 40 Hemoglobin 14.7 gm/dL 12.0-16.0 40 Hematocrit 42.8 % 36.0-47.0 40 MCV 93.2 fL 80.0-97.0 40 MCH 32.1 pg High 27.0-32.0 40 MCHC 34.4 g/dL 32.0-36.0 40 RDW 13.2 % 11.5-14.5 40 PLT Count 240 K/ul 140-400 40 Neutrophil 53.5 % 35.0-75.0 40 Lymphocyte 36.7 % 16.0-52.0 40 Monocyte 8.2 % 2.0-10.0 40 Eosinophil 0.7 % 0.0-5.0 40 Basophil 0.9 % 0.0-4.0 40 Abs Neutrophils 3.5 K/uL 2.1-8.0 40 Abs Lymphocytes 2.4 K/uL 0.8-5.5 40 Abmon 0.5 K/uL 0.1-1.0 40 Abs Eosinophils 0.0 K/uL 0.0-0.5 40 Abs Basophils 0.1 K/uL 0.0-0.3 40 Comprehensive Metabolic (CMP) 08/19/2013 Sodium 141 mmol/L 134-142 40 Potassium 4.9 mmol/L 3.5-5.2 40 Chloride 110 mmol/L High 97-109 40, 41 Carbon Dioxide 27 mmol/L 24-34 40 Glucose 106 mg/dL High 70-105 40 BUN 17 mg/dL 6-26 40 Creatinine 0.8 mg/dL 0.5-1.4 40 Calcium 9.8 mg/dL 8.5-10.2 40 Total Protein 7.0 g/dL 6.0-8.0 40 Albumin 4.6 g/dL 3.6-4.9 40 Globulin 2.4 g/dL 2.0-3.5 40 A/G Ratio 1.9 Ratio 1.0-2.2 40 Total Bilirubin 0.5 mg/dL 0.1-1.3 40 Alkaline Phosphatase 65 U/L 24-140 40 Alt 14 U/L 3-42 40 Ast 15 U/L 8-42 40 Anion Gap 9 mmol/L 6-14 40 Chelsi Egfr >60 >60 40, 42 Non Chelsi Egfr >60 >60 40, 43 Lipid 08/19/2013 Cholesterol 214 mg/dL High 50-199 40 Triglycerides 89 mg/dL 30-200 40 HDL 58 mg/dL 35-85 40, 44 Chol/ HDL Ratio 3.7 ratio 3.7-5.6 40 VLDL 18 mg/dL 2-29 40 LDL (Calc) 138 mg/dL High 20-99 40, 45 CBC With Auto Diff 10/17/2012 WBC 6.5 K/uL 4.1-11.0 40 RBC 4.14 M/uL 4.00-5.40 40 Hemoglobin 13.4 gm/dL 12.0-16.0 40 Hematocrit 39.4 % 36.0-47.0 40 MCV 95.4 fL 80.0-97.0 40 MCH 32.3 pg High 27.0-32.0 40 MCHC 33.9 g/dL 32.0-36.0 40 RDW 13.6 % 11.5-14.5 40 PLT Count 230 K/ul 140-400 40 Neutrophil 46.6 % 35.0-75.0 40 Lymphocyte 43.3 % 16.0-52.0 40 Monocyte 8.7 % 2.0-10.0 40 Eosinophil 0.5 % 0.0-5.0 40 Basophil 0.9 % 0.0-4.0 40 Abs Neutrophils 3.0 K/uL 2.1-8.0 40 Abs Lymphocytes 2.8 K/uL 0.8-5.5 40 Abs Monocytes 0.6 K/uL 0.1-1.0 40 Abs Eosinophils 0.0 K/uL 0.0-0.5 40 Abs Basophils 0.1 K/uL 0.0-0.3 40 CBC With Auto Diff 10/16/2012 Rejected Test Reason Cancelled 46 Laboratory test finding 10/16/2012 Amylase 44 U/L 29-103 46 Lipase 21 U/L 11-82 46 Hepatic Panel (LFT) 10/16/2012 Total Protein 6.6 g/dL 6.0-8.0 46 Albumin 4.6 g/dL 3.6-4.9 46 Total Bilirubin 0.4 mg/dL 0.1-1.3 46 Direct Bilirubin 0.1 mg/dL 0.0-0.4 46 Alkaline Phosphatase 64 U/L 24-140 46 Alt 13 U/L 3-42 46 Ast 14 U/L 8-42 46 Manual Differential 10/16/2012 Rejected Test Reason Cancelled 46 Laboratory test finding 10/16/2012 H Pylori AB Igg <0.40 U/ML (<0.90) 46 , 47 Comprehensive Metabolic 08/13/2012 Sodium 139 mmol/L 134-142 46 (CMP) Potassium 5.0 mmol/L 3.5-5.2 46 Chloride 106 mmol/L 97-109 46 Carbon Dioxide 28 mmol/L 24-34 46 Glucose 96 mg/dL 70-105 46 BUN 21 mg/dL 6-26 46 Creatinine 0.8 mg/dL 0.5-1.4 46 Calcium 9.6 mg/dL 8.5-10.2 46 Total Protein 6.7 g/dL 6.0-8.0 46 Albumin 4.5 g/dL 3.6-4.9 46 Globulin 2.2 g/dL 2.0-3.5 46 A/G Ratio 2.0 Ratio 1.0-2.2 46 Total Bilirubin 0.6 mg/dL 0.1-1.3 46 Alkaline Phosphatase 71 U/L 24-140 46 Alt 14 U/L 3-42 46 Ast 16 U/L 8-42 46 Anion Gap 10 mmol/L 6-14 46 Chelsi Egfr >60 >60 46, 48 Non Chlesi Egfr >60 >60 46, 49 Lipid 08/13/2012 Cholesterol 198 mg/dL 50-199 46 Triglycerides 45 mg/dL 30-200 46 HDL 59 mg/dL 35-85 46, 50 Chol/ HDL Ratio 3.4 ratio Low 3.7-5.6 46 VLDL 9 mg/dL 2-29 46 LDL (Calc) 130 mg/dL High 20-129 46, 51 Non HDL Cholesterol 139 mg/dL High 20-129 46, 52 Laboratory test finding 08/13/2012 Hemoglobin A1c 5.9 % 4.1-5.9 46 Vit D,25 Hydroxy 36 ng/mL 31-100 46 CBC With Auto Diff 02/13/2012 WBC 6.0 K/uL 4.1-11.0 53 RBC 4.44 M/uL 4.00-5.40 53 Hemoglobin 13.9 gm/dL 12.0-16.0 53 Hematocrit 42.0 % 36.0-47.0 53 MCV 94.5 fL 80.0-97.0 53 MCH 31.3 pg 27.0-32.0 53 MCHC 33.1 g/dL 32.0-36.0 53 RDW 14.2 % 11.5-14.5 53 PLT Count 230 K/ul 140-400 53 Neutrophil 54.3 % 35.0-75.0 53 Lymphocyte 35.1 % 16.0-52.0 53 Monocyte 9.0 % 2.0-10.0 53 Eosinophil 0.5 % 0.0-5.0 53 Basophil 1.1 % 0.0-4.0 53 Abs Neutrophils 3.3 K/uL 2.1-8.0 53 Abs Lymphocytes 2.1 K/uL 0.8-5.5 53 Abs Monocytes 0.5 K/uL 0.1-1.0 53 Abs Eosinophils 0.0 K/uL 0.0-0.5 53 Abs Basophils 0.1 K/uL 0.0-0.3 53 Comprehensive Metabolic (CMP) 02/13/2012 Sodium 141 mmol/L 134-142 53 Potassium 5.0 mmol/L 3.5-5.2 53 Chloride 106 mmol/L 97-109 53 Carbon Dioxide 27 mmol/L 24-34 53 Glucose 100 mg/dL 70-105 53 BUN 16 mg/dL 6-26 53 Creatinine 0.7 mg/dL 0.5-1.4 53 Calcium 10.0 mg/dL 8.5-10.2 53 Total Protein 6.5 g/dL 6.0-8.0 53 Albumin 4.4 g/dL 3.6-4.9 53 Globulin 2.1 g/dL 2.0-3.5 53 A/G Ratio 2.1 Ratio 1.0-2.2 53 Total Bilirubin 0.7 mg/dL 0.1-1.3 53 Alkaline Phosphatase 80 U/L 24-140 53 Alt 14 U/L 3-42 53 Ast 15 U/L 8-42 53 Anion Gap 13 mmol/L 6-14 53 Chelsi Egfr >60 >60 53, 54 Non Chelsi Egfr >60 >60 53, 55 Lipid 02/13/2012 Cholesterol 170 mg/dL 50-199 53 Triglycerides 69 mg/dL 30-200 53 HDL 61 mg/dL 35-85 53, 56 Chol/ HDL Ratio 2.8 ratio Low 3.7-5.6 53 VLDL 14 mg/dL 2-29 53 LDL (Calc) 95 mg/dL 20-129 53, 57 Rast1 11/18/2011 D Pteronyssinus Conc <0.05 58 D Pteronyssinus Class Negative class 58 D Farinae Conc <0.05 58 D Farinae Class Negative class 58 Cat Epithelium Conc <0.05 58 Cat Epithelium Class Negative class 58 Dog Dander Conc <0.05 58 Dog Dander Class Negative class 58 Berm[place] Grass Conc <0.05 58 [place] Grass Class Negative class 58 Damian Conc <0.05 58 Damian Class Negative class 58 House Dust Conc <0.05 58 House Dust Class Negative class 58 Cladosporium Conc <0.05 58 Cladosporium Class Negative class 58 Aspergillus Conc <0.05 58 Aspergillus Class Negative class 58 Alternaria Conc <0.05 58 Alternaria Class Negative class 58 [place]/ Maple Conc <0.05 58 [place]/ Maple Class Negative class 58 [place]land Conc <0.05 58 [place] Class Negative class 58 Birch Conc <0.05 58 Birch Class Negative class 58 Ragweed Short Conc <0.05 58 Ragweed Short Class Negative class 58 Liriano's Quarter Conc <0.05 58 Liriano's Quarter Class Negative class 58 Laboratory test finding 11/18/2011 Total IgE 1 IU/mL 1-165 58 Laboratory test finding 10/13/2011 Vitamin B2 13 59, 60 Laboratory test finding 10/13/2011 Vit D,25 Hydroxy 52 ng/mL 31-100 59 Comprehensive Metabolic (CMP) 10/13/2011 Sodium 138 mmol/L 134-142 59 Potassium 4.8 mmol/L 3.5-5.2 59 Chloride 102 mmol/L 97-109 59 Carbon Dioxide 25 mmol/L 24-34 59 Glucose 95 mg/dL 70-105 59 BUN 13 mg/dL 6-26 59 Creatinine 0.7 mg/dL 0.5-1.4 59 Calcium 9.9 mg/dL 8.5-10.2 59 BUN/CR 18 ratio 12-20 59 Total Protein 7.0 g/dL 6.0-8.0 59 Albumin 4.3 g/dL 3.6-4.9 59 Globulin 2.7 g/dL 2.0-3.5 59 A/G Ratio 1.6 Ratio 1.0-2.2 59 Total Bilirubin 0.6 mg/dL 0.1-1.3 59 Alkaline Phosphatase 71 U/L 24-140 59 Alt 11 U/L 3-42 59 Ast 13 U/L 8-42 59 Anion Gap 16 mmol/L High 6-14 59 Chelsi Egfr >60 >60 59, 61 Non Chelsi Egfr >60 >60 59, 62 Laboratory test finding 10/13/2011 Magnesium 2.1 mg/dL 1.5-2.7 59 CBC With Auto Diff 10/13/2011 WBC 13.4 K/uL High 4.1-11.0 59 RBC 4.08 M/uL 4.00-5.40 59 Hemoglobin 12.8 gm/dL 12.0-16.0 59 Hematocrit 38.3 % 36.0-47.0 59 MCV 93.9 fL 80.0-97.0 59 MCH 31.3 pg 27.0-32.0 59 MCHC 33.4 g/dL 32.0-36.0 59 RDW 13.3 % 11.5-14.5 59 PLT Count 271 K/ul 140-400 59 Neutrophil 75.3 % High 35.0-75.0 59 Lymphocyte 14.0 % Low 16.0-52.0 59 Monocyte 10.1 % High 2.0-10.0 59 Eosinophil 0.1 % 0.0-5.0 59 Basophil 0.5 % 0.0-4.0 59 Abs Neutrophils 10.1 K/uL High 2.1-8.0 59 Abs Lymphocytes 1.9 K/uL 0.8-5.5 59 Abs Monocytes 1.4 K/uL High 0.1-1.0 59 Abs Eosinophils 0.0 K/uL 0.0-0.5 59 Abs Basophils 0.1 K/uL 0.0-0.3 59 Laboratory test finding 10/13/2011 TSH 1.81 uIU/mL 0.34-5.60 59 Free T4 1.02 ng/dL 0.50-1.60 59 Comprehensive Metabolic (CMP) 09/05/2011 Sodium 141 mmol/L 134-142 63 Potassium 5.1 mmol/L 3.5-5.2 63 Chloride 108 mmol/L 97-109 63 Carbon Dioxide 25 mmol/L 24-34 63 Glucose 86 mg/dL 70-105 63 BUN 19 mg/dL 6-26 63 Creatinine 0.8 mg/dL 0.5-1.4 63 Calcium 9.5 mg/dL 8.5-10.2 63 BUN/CR 25 ratio High 12-20 63 Total Protein 6.5 g/dL 6.0-8.0 63 Albumin 4.5 g/dL 3.6-4.9 63 Globulin 2.0 g/dL 2.0-3.5 63 A/G Ratio 2.3 Ratio High 1.0-2.2 63 Total Bilirubin 0.6 mg/dL 0.1-1.3 63 Alkaline Phosphatase 75 U/L 24-140 63 Alt 15 U/L 3-42 63 Ast 17 U/L 8-42 63 Anion Gap 13 mmol/L 6-14 63 Chelsi Egfr >60 >60 63, 64 Non Chelsi Egfr >60 >60 63, 65 Laboratory test finding 09/05/2011 Hemoglobin A1c 5.9 % 4.1-5.9 63 Lipid 09/05/2011 Cholesterol 124 mg/dL 50-199 63 Triglycerides 54 mg/dL 30-200 63 HDL 46 mg/dL 35-85 63, 66 Chol/ HDL Ratio 2.7 ratio Low 3.7-5.6 63 VLDL 11 mg/dL 2-29 63 LDL (Calc) 67 mg/dL 20-129 63, 67 CBC With Auto Diff 06/06/2011 WBC 6.9 K/uL 4.1-11.0 68 RBC 4.26 M/uL 4.00-5.40 68 Hemoglobin 13.9 gm/dL 12.0-16.0 68 Hematocrit 40.5 % 36.0-47.0 68 MCV 95.1 fL 80.0-97.0 68 MCH 32.6 pg High 27.0-32.0 68 MCHC 34.3 g/dL 32.0-36.0 68 RDW 13.3 % 11.5-14.5 68 PLT Count 260 K/ul 140-400 68 Neutrophil 62.2 % 35.0-75.0 68 Lymphocyte 29.4 % 16.0-52.0 68 Monocyte 7.1 % 2.0-10.0 68 Eosinophil 0.9 % 0.0-5.0 68 Basophil 0.4 % 0.0-4.0 68 Abs Neutrophils 4.3 K/uL 2.1-8.0 68 Abs Lymphocytes 2.0 K/uL 0.8-5.5 68 Abs Monocytes 0.5 K/uL 0.1-1.0 68 Abs Eosinophils 0.1 K/uL 0.0-0.5 68 Abs Basophils 0.0 K/uL 0.0-0.3 68 Comprehensive Metabolic (CMP) 06/06/2011 Sodium 139 mmol/L 136-145 68 Potassium 4.9 mmol/L 3.5-5.1 68 Chloride 107 mmol/L 98-107 68 Carbon Dioxide 27 mmol/L 21-31 68 Glucose 107 mg/dL High 70-105 68 BUN 15 mg/dL 7-25 68 Creatinine 0.8 mg/dL 0.6-1.2 68 Calcium 9.1 mg/dL 8.6-10.3 68 BUN/CR 19 ratio 12-20 68 Total Protein 6.5 g/dL 6.4-8.9 68 Albumin 4.3 g/dL 3.5-5.7 68 Globulin 2.2 g/dL 2.0-3.5 68 A/G Ratio 2.0 Ratio 1.0-2.2 68 Total Bilirubin 0.4 mg/dL 0.3-1.0 68 Alkaline Phosphatase 73 U/L 34-104 68 Alt 20 U/L 7-52 68 Ast 16 U/L 13-39 68 Anion Gap 10 mmol/L 8-16 68 Non Chelsi Egfr >60 >60 68, 69 Chelsi Egfr >60 >60 68, 70 Lipid 06/06/2011 Cholesterol 187 mg/dL 50-199 68 Triglycerides 122 mg/dL 10-150 68 HDL 48 mg/dL 23-92 68, 71 Chol/ HDL Ratio 3.9 ratio 3.7-5.6 68 VLDL 24 mg/dL 2-29 68 LDL (Calc) 115 mg/dL 20-129 68, 72 Laboratory test finding 06/06/2011 Vit D,25 Hydroxy 39 ng/mL 31-100 68 Hemoglobin A1c 6.1 % High 4.1-5.9 68 Lipid Treatment 07/28/2010 Chol 165 mg/dL 50-199 73 Trig 131 mg/dL 10-150 73 HDL 49 mg/dL 35-85 73, 74 Chol/HDL 3.4 ratio Low 3.7-5.6 73 VLDL 26 mg/dL 2-29 73 LDL 90 mg/dL 20-129 73, 75 Alt 27 U/L 5-45 73 Ast 22 U/L 12-40 73 Laboratory test finding 07/28/2010 Vit D,25 Hydroxy 28 ng/mL Low 31-100 73 CBC With Auto Diff 05/10/2010 WBC 10.4 K/ul 4.0-10.9 76 RBC 4.33 M/ul 4.20-5.40 76 Hemoglobin 14.4 GM/dl 12.5-16.0 76 Hematocrit 41.0 % 36.0-47.0 76 MCV 94.8 FL 80.0-97.0 76 MCH 33.2 pg High 27.0-31.0 76 MCHC 35.0 g/dL 32.0-36.0 76 RDW 13.3 % 11.5-14.5 76 Platelet Count 274 K/ul 140-440 76 Neutrophils N/A % 50-70 76 Lymphocytes N/A % 20-44 76 Monocytes N/A % 2-9 76 Eosinophil N/A % 0-4 76 Basophil N/A % 0-2 76 Absolute Neutrophils N/A K/ul 2.05-7.63 76 Absolute Lymphocytes N/A K/ul 0.8-4.8 76 Absolute Monocytes N/A K/ul 0.1-1.0 76 Absolute Eosinophils N/A K/ul 0.1-0.5 76 Absolute Basophils N/A K/ul 0.0-0.3 76 Hematology Comment (Comm2) N/A 76 CMP 05/10/2010 Sodium 140 mmol/L 135-144 76 Potassium 4.5 mmol/L 3.6-5.2 76 Chloride 107 mmol/L 97-110 76 Carbon Dioxide 27 mmol/L 23-32 76 Glucose 92 mg/dL 70-105 76 BUN 14 mg/dL 6-22 76 Creatinine 0.8 mg/dL 0.5-1.3 76 BUN/CR 18 Ratio 76 Calcium 9.8 mg/dL 8.6-10.2 76 Total Protein 7.2 g/dL 5.8-7.8 76 Albumin 4.4 g/dL 3.5-4.8 76 Globulin 2.8 g/dL 2.0-3.5 76 A/G Ratio 1.6 Ratio 1.0-2.2 76 Total Bilirubin 0.6 mg/dL 0.3-1.2 76 Alkaline Phosphatase 78 U/L 24-140 76 Alt 20 U/L 5-45 76 Ast 20 U/L 12-40 76 Anion Gap 11 mmol/L 8-16 76 GFR Calculation > 60 mL/min 60-175 76, 77 GFR For > 60 mL/min 60-175 76, 78 Diff For Manual CBC 05/10/2010 Blast N/A % 76 Promyelocyte N/A % 76 Myelocyte N/A % 76 Metamyelocyte N/A % 76 Band 4 % 2-6 76 Neutrophil 52 % 50-70 76 Lymphocyte 38 % 20-44 76 Monocyte 6 % 2-9 76 Eosinophil N/A % 0-4 76 Basophil N/A % 0-2 76 Platelet Estimate NORMAL 76 RBC Morphology NORMAL 76 Anisocytosis N/A 76 Poikilocytosis N/A 76 Macrocytosis N/A 76 Microcytosis N/A 76 Hypochromasia N/A 76 Atypical Lymphs N/A % 76 Hyperchromia N/A 76 Polychromasia N/A 76 Abnormal Cells N/A 76 Lipid TX Panel 12/15/2009 Ast 22 U/L 12-40 79 Alt 23 U/L 5-45 79 Cholesterol 175 mg/dL 50-199 79 Triglycerides 126 mg/dL 10-150 79 HDL 36 mg/dL 35-85 79, 80 LDL (Calc) 114 mg/dL 20-129 79, 81 Chol/HDL Ratio 4.9 Ratio 3.7-5.6 79, 82 VLDL 25 mg/dL 2-29 79 Laboratory test finding 12/15/2009 Vitamin D, 25 Hydroxy 36 ng/mL 31-100 79 Laboratory test finding 06/22/2009 TSH 1.74 uIU/ml 0.34-5.60 83 Vitamin D, 25 Hydroxy 23 ng/mL Low 31-100 83 Lipid Panel 06/22/2009 Cholesterol 177 mg/dL 50-199 83 Triglycerides 77 mg/dL 10-150 83 HDL 47 mg/dL 35-85 83, 84 Chol/HDL Ratio 3.8 Ratio 3.7-5.6 83, 85 VLDL 15 mg/dL 2-29 83 LDL (Calc) 115 mg/dL 20-129 83, 86 CMP 06/22/2009 Sodium 140 mmol/L 135-144 83 Potassium 4.2 mmol/L 3.6-5.2 83, 87 Chloride 109 mmol/L 97-110 83 Carbon Dioxide 23 mmol/L 23-32 83 Glucose 91 mg/dL 70-105 83 BUN 13 mg/dL 6-22 83 Creatinine 0.7 mg/dL 0.5-1.3 83 BUN/CR 19 Ratio 83 Calcium 9.6 mg/dL 8.6-10.2 83, 88 Total Protein 6.3 g/dL 5.8-7.8 83 Albumin 3.8 g/dL 3.5-4.8 83 Globulin 2.5 g/dL 2.0-3.5 83 A/G Ratio 1.5 Ratio 1.0-2.2 83 Total Bilirubin 0.5 mg/dL 0.3-1.2 83 Alkaline Phosphatase 77 U/L 24-140 83 Alt 23 U/L 5-45 83 Ast 23 U/L 12-40 83 Anion Gap 12 mmol/L 8-16 83 GFR Calculation > 60 mL/min 60-175 83, 89 GFR For > 60 mL/min 60-175 83, 90 CBC With Auto Diff 06/22/2009 WBC 7.1 K/ul 4.0-10.9 83 RBC 4.17 M/ul Low 4.20-5.40 83 Hemoglobin 13.4 GM/dl 12.5-16.0 83 Hematocrit 39.4 % 36.0-47.0 83 MCV 94.4 FL 80.0-97.0 83 MCH 32.0 pg High 27.0-31.0 83 MCHC 33.9 g/dL 32.0-36.0 83 RDW 13.0 % 11.5-14.5 83 Platelet Count 265 K/ul 140-440 83 Neutrophils 61.2 % 50-70 83 Lymphocytes 31.6 % 20-44 83 Monocytes 5.9 % 2-9 83 Eosinophil 0.3 % 0-4 83 Basophil 1.0 % 0-2 83 Absolute Neutrophils 4.3 K/ul 2.05-7.63 83 Absolute Lymphocytes 2.2 K/ul 0.8-4.8 83 Absolute Monocytes 0.4 K/ul 0.1-1.0 83 Absolute Eosinophils 0.0 K/ul Low 0.1-0.5 83 Absolute Basophils 0.1 K/ul 0.0-0.3 83 Hematology Comment (Comm2) N/A 83 Lipid TX Panel 11/27/2008 Ast 24 U/L 12-40 91 Alt 28 U/L 5-45 91 Cholesterol 180 mg/dL 50-199 91 Triglycerides 173 mg/dL High 10-150 91 HDL 49 mg/dL 35-85 91, 92 LDL (Calc) 96 mg/dL 20-129 91, 93 Chol/HDL Ratio 3.7 Ratio 3.7-5.6 91, 94 VLDL 35 mg/dL High 2-29 91 CBC With Auto Diff 06/13/2008 WBC 7.9 K/ul 4.0-10.9 95 RBC 4.51 M/ul 4.20-5.40 95 Hemoglobin 14.1 GM/dl 12.5-16.0 95 Hematocrit 42.2 % 36.0-47.0 95 MCV 93.6 FL 80.0-97.0 95 MCH 31.3 pg High 27.0-31.0 95 MCHC 33.4 g/dL 32.0-36.0 95 RDW 13.3 % 11.5-14.5 95 Platelet Count 314 K/ul 140-440 95 Neutrophils 58.8 % 50-70 95 Lymphocytes 31.9 % 20-44 95 Monocytes 8.1 % 2-9 95 Eosinophil 0.6 % 0-4 95 Basophil 0.6 % 0-2 95 Absolute Neutrophils 4.6 K/ul 2.05-7.63 95 Absolute Lymphocytes 2.5 K/ul 0.8-4.8 95 Absolute Monocytes 0.6 K/ul 0.1-1.0 95 Absolute Eosinophils 0.0 K/ul Low 0.1-0.5 95 Absolute Basophils 0.0 K/ul 0.0-0.3 95 Hematology Comment (Comm2) N/A 95 CMP 06/13/2008 Sodium 143 mmol/L 135-144 95 Potassium 5.3 mmol/L High 3.6-5.2 95 Chloride 107 mmol/L 97-110 95 Carbon Dioxide 24 mmol/L 23-33 95 Glucose 77 mg/dL 70-105 95 BUN 14 mg/dL 6-22 95 Creatinine 0.8 mg/dL 0.5-1.3 95 BUN/CR 18 Ratio 12.0-20.0 95 Calcium 10.1 mg/dL 8.6-10.2 95 Total Protein 7.0 g/dL 5.8-7.8 95 Albumin 4.4 g/dL 3.5-4.8 95 Globulin 2.6 g/dL 2.0-3.5 95 A/G Ratio 1.7 Ratio 1.0-2.2 95 Total Bilirubin 0.7 mg/dL 0.3-1.2 95 Alkaline Phosphatase 86 U/L 24-140 95 Alt 33 U/L 4-45 95 Ast 26 U/L 12-40 95 Anion Gap 17 mmol/L High 8-16 95 GFR Calculation > 60 mL/min 95, 96 GFR For > 60 mL/min 95, 97 Laboratory test finding 06/13/2008 TSH 2.31 uIU/ml 0.34-5.60 95 Lipid TX Panel 04/23/2008 Ast 24 U/L 12-40 98 Alt 27 U/L 4-45 98 Cholesterol 183 mg/dL 50-199 98 Triglycerides 283 mg/dL High 10-150 98 HDL 41 mg/dL 35-85 98, 99 LDL (Calc) 85 mg/dL 20-129 98, 100 Chol/HDL Ratio 4.5 Ratio 98, 101 VLDL 57 mg/dL 98 Lipid TX Panel 10/12/2007 Ast 23 U/L 12-40 98 Alt 30 U/L 4-45 98 Cholesterol 189 mg/dL 50-199 98 Triglycerides 199 mg/dL High 10-150 98 HDL 43 mg/dL 35-85 98 LDL (Calc) 106 mg/dL 20-129 98 Chol/HDL Ratio 4.4 Ratio 98 VLDL 40 mg/dL 98 Lipid TX Panel 06/20/2007 Ast 21 U/L 12-40 98 Alt 25 U/L 4-45 98 Cholesterol 203 mg/dL High 50-199 98 Triglycerides 262 mg/dL High 10-150 98 HDL 41 mg/dL 35-85 98 LDL (Calc) 110 mg/dL 20-129 98 Chol/HDL Ratio 5.0 Ratio 98 VLDL 52 mg/dL 98 Lipid TX Panel 03/14/2007 Ast 32 U/L 12-40 98 Alt 36 U/L 4-45 98 Cholesterol 189 mg/dL 50-199 98 Triglycerides 272 mg/dL High 10-150 98 HDL 43 mg/dL 35-85 98 LDL (Calc) 92 mg/dL 20-129 98 Chol/HDL Ratio 4.4 Ratio 98 VLDL 54 mg/dL 98 Lipid TX Panel 12/07/2006 Ast 25 U/L 12-40 98 Alt 30 U/L 4-45 98 Cholesterol 167 mg/dL 50-199 98 Triglycerides 147 mg/dL 10-150 98 HDL 49 mg/dL 35-85 98 LDL (Calc) 89 mg/dL 20-129 98 Chol/HDL Ratio 3.4 Ratio 98 VLDL 29 mg/dL 98 Lipid TX Panel 10/24/2006 Ast 24 U/L 12-40 98 Alt 25 U/L 4-45 98 Cholesterol 250 mg/dL High 50-199 98 Triglycerides 245 mg/dL High 10-150 98 HDL 45 mg/dL 35-85 98 LDL (Calc) 156 mg/dL High 20-129 98 Chol/HDL Ratio 5.6 Ratio 98 VLDL 49 mg/dL 98 Laboratory test finding 06/12/2006 TSH 2.31 uIU/ml 0.50-6.00 98 Lipid Panel 06/12/2006 Cholesterol 259 mg/dL High 50-199 98 Triglycerides 166 mg/dL High 10-150 98 HDL 51 mg/dL 35-85 98 Chol/HDL Ratio 5.1 Ratio 98 VLDL 33 mg/dL 98 LDL (Calc) 175 mg/dL High 20-129 98 CMP 06/12/2006 Sodium 140 mmol/L 135-144 98 Potassium 5.0 mmol/L 3.6-5.2 98 Chloride 106 mmol/L 97-110 98 Carbon Dioxide 26 mmol/L 23-33 98 Glucose 101 mg/dL (70-99) 98 BUN 13 mg/dL 6-22 98 Creatinine 0.8 mg/dL 0.5-1.3 98 BUN/CR 16 Ratio 12.0-20.0 98 Calcium 9.8 mg/dL 8.6-10.2 98, 102 Total Protein 7.4 g/dL 5.8-7.8 98 Albumin 4.5 g/dL 3.5-4.8 98 Globulin 2.9 g/dL 2.0-3.5 98 A/G Ratio 1.6 Ratio 1.0-2.2 98 Total Bilirubin 0.7 mg/dL 0.3-1.2 98 Alkaline Phosphatase 89 U/L 24-140 98 Alt 37 U/L 4-45 98 Ast 26 U/L 12-40 98 Anion Gap 13 mmol/L 8-16 98 GFR White Male 109 98 GFR White Female 81 98 GFR Black Male 132 98 GFR Black Female 98 98 GFR Guidelines 0 98, 103 CBC With Auto Diff 06/12/2006 WBC 7.8 K/ul 4.0-10.9 98 RBC 4.61 M/ul 4.20-5.40 98 Hemoglobin 14.9 GM/dl 12.5-16.0 98 Hematocrit 42.6 % 36.0-47.0 98 MCV 92.2 FL 80.0-97.0 98 MCH 32.3 pg High 27.0-31.0 98 MCHC 35.0 g/dL 32.0-36.0 98 RDW 12.4 % 11.5-14.5 98 Platelet Count 354 K/ul 140-440 98 Neutrophils 63.4 % 50-70 98 Lymphocytes 26.9 % 20-44 98 Monocytes 8.0 % 2-9 98 Eosinophil 0.8 % 0-4 98 Basophil 0.9 % 0-2 98 Absolute Neutrophils 4.9 K/ul 2.05-7.63 98 Absolute Lymphocytes 2.1 K/ul 0.8-4.8 98 Absolute Monocytes 0.6 K/ul 0.1-1.0 98 Absolute Eosinophils 0.1 K/ul 0.1-0.5 98 Absolute Basophils 0.1 K/ul 0.1-0.3 98 Culture Stool -[facility] 03/07/2005 Stool Culture W/E. Negative for Cam <SEE 104 Coli Eia NOTE> Eia Test For E. Coli Toxins NEGATIVE Laboratory test finding 03/07/2005 C Difficle Toxin A NEGATIVE Giardia/Cryptosporidium 03/07/2005 Cryptosporidium -[facility] NEGATIVE Stool-[facility] Giardia -[facility] NEGATIVENote: Sp <SEE NOTE> 105 CMP 03/04/2005 Sodium 139 mmol/L 135-144 98 Potassium 4.3 mmol/L 3.6-5.2 98 Chloride 107 mmol/L 97-110 98 Carbon Dioxide 25 mmol/L 22-32 98 Glucose 106 mg/dL High 70-105 98 BUN 12 mg/dL 6-22 98 Creatinine 0.8 mg/dL 0.5-1.3 98 BUN/CR 15 Ratio 12.0-20.0 98 Calcium 9.4 mg/dL 8.6-10.2 98 Total Protein 6.8 g/dL 5.8-7.8 98 Albumin 4.3 g/dL 3.5-4.8 98 Globulin 2.5 g/dL 2.0-3.5 98 A/G Ratio 1.7 Ratio 1.0-2.2 98 Total Bilirubin 0.7 mg/dL 0.3-1.2 98 Ast 21 U/L 12-40 98 Alt 19 U/L 4-45 98 Alkaline Phosphatase 94 U/L 24-108 98 Anion Gap 11 mmol/L 8-16 98 Laboratory test finding 03/04/2005 TSH 1.83 uIU/ml 0.50-6.00 98 CBC 03/04/2005 WBC 5.5 K/ul 4.1-10.9 98 RBC 4.34 M/ul 4.20-6.30 98 Hemoglobin 13.7 GM/dl 12.5-15.0 98 Hematocrit 41.2 % 36.0-47.0 98 MCV 94.9 FL 80.0-97.0 98 MCH 31.6 pg 26.0-32.0 98 MCHC 33.3 g/dL 31.0-36.0 98 RDW 12.6 % 11.5-14.5 98 Platelet Count 335 K/ul 140-440 98 Neutrophils 57.1 % 50-70 98 Lymphocytes 34.0 % 20-44 98 Monocytes 7.7 % 2-9 98 Eosinophil 0.5 % 0-4 98 Basophil 0.7 % 0-2 98 Absolute Neutrophils 3.2 K/ul 2.05-7.63 98 Absolute Lymphocytes 1.9 K/ul 0.8-4.8 98 Absolute Monocytes 0.4 K/ul 0.1-1.0 98 Absolute Eosinophils 0.0 K/ul Low 0.1-0.5 98 Absolute Basophils 0.0 K/ul Low 0.1-0.3 98 Laboratory test finding 08/28/2003 Helicobacter Pylori (H. 0.30 Index 0- 0.9 106 Pylori), Igg CMP 07/26/2002 Sodium 140 mmol/L [...] pg/mL 230-1050 1 This sample is drawn by:[facility]. 2 Per NCEP ATP III Guidelines: Results lower than 40 mg/dL are suggestive of increased risk for coronary artery disease. Results > or=to 60 mg/dL are considered a negative risk factor. 3 Per NCEP ATP III Guidelines: Normal Population <130 Patients with medical conditions: CHD/DM Optimal: <100 Borderline high: 130-159 High: 160-189 Very high: >189 4 Clinical Guidelines for recommended serum 25(OH)Vitamin D Deficient at less than 20 ng/mL Insufficient at 20 to <30 ng/mL Sufficient at 30-100 ng/mL Toxicity at greater than 100 ng/mL 5 Updated reference range on new analyzer 6 Updated reference range on new analyzer 7 Concerning GFR Guidelines for Americans: Normal function or mild renal disease, if clinically at risk: >/=60 mL/min Moderately decreased: 30-59 Severely decreased: 15-29 Renal failure: <15 8 Concerning GFR Guidelines: Normal function or mild [...] drugs that are excreted by the kidneys. 9 Updated reference range on new analyzer 10 Per NCEP ATP III Guidelines: Results lower than 40 mg/dL are suggestive of increased risk for coronary artery disease. Results > or=to 60 mg/dL are considered a negative risk factor. 11 Per NCEP ATP III Guidelines: Normal Population <130 Patients with medical conditions: CHD/DM Optimal: <100 Borderline high: 130-159 High: 160-189 Very high: >189 12 Updated reference range on new analyzer 13 Updated reference range on new analyzer 14 Concerning GFR Guidelines for Americans: Normal function or mild renal disease, if clinically at risk: >/=60 mL/min Moderately decreased: 30-59 Severely decreased: 15-29 Renal failure: <15 15 Concerning GFR Guidelines: Normal function or mild [...] drugs that are excreted by the kidneys. 16 Updated reference range on new analyzer 17 Per NCEP ATP III Guidelines: Results lower than 40 mg/dL are suggestive of increased risk for coronary artery disease. Results > or=to 60 mg/dL are considered a negative risk factor. 18 Per NCEP ATP III Guidelines: Normal Population <130 Patients with medical conditions: CHD/DM Optimal: <100 Borderline high: 130-159 High: 160-189 Very high: >189 19 Concerning GFR Guidelines for Americans: Normal function or mild renal disease, if clinically at risk: >/=60 mL/min Moderately decreased: 30-59 Severely decreased: 15-29 Renal failure: <15 20 Concerning GFR Guidelines: Normal function or mild [...] drugs that are excreted by the kidneys. 21 Per NCEP ATP III Guidelines: Results lower than 40 mg/dL are suggestive of increased risk for coronary artery disease. Results > or=to 60 mg/dL are considered a negative risk factor. 22 Per NCEP ATP III Guidelines: Normal Population <130 Patients with medical conditions: CHD/DM Optimal: <100 Borderline high: 130-159 High: 160-189 Very high: >189 23 Per NCEP ATP III Guidelines: Results lower than 40 mg/dL are suggestive of increased risk for coronary artery disease. Results > or=to 60 mg/dL are considered a negative risk factor. 24 Per NCEP ATP III Guidelines: Normal Population <130 Patients with medical conditions: CHD/DM Optimal: <100 Borderline high: 130-159 High: 160-189 Very high: >189 25 5.5 No visible hemolysis. 26 Concerning GFR Guidelines for Americans: Normal function or mild renal disease, if clinically at risk: >/=60 mL/min Moderately decreased: 30-59 Severely decreased: 15-29 Renal failure: <15 27 Concerning GFR Guidelines: Normal function or mild [...] drugs that are excreted by the kidneys. 28 5.8 No visible hemolysis. 29 Concerning GFR Guidelines for Americans: Normal function or mild renal disease, if clinically at risk: >/=60 mL/min Moderately decreased: 30-59 Severely decreased: 15-29 Renal failure: <15 30 Concerning GFR Guidelines: Normal function or mild [...] drugs that are excreted by the kidneys. 31 Per NCEP ATP III Guidelines: Results lower than 40 mg/dL are suggestive of increased risk for coronary artery disease. Results > or=to 60 mg/dL are considered a negative risk factor. 32 Per NCEP ATP III Guidelines: Normal Population <130 Patients with medical conditions: CHD/DM Optimal: <100 Borderline high: 130-159 High: 160-189 Very high: >189 33 Concerning GFR Guidelines for Americans: Normal function or mild renal disease, if clinically at risk: >/=60 mL/min Moderately decreased: 30-59 Severely decreased: 15-29 Renal failure: <15 34 Concerning GFR Guidelines: Normal function or mild [...] drugs that are excreted by the kidneys. 35 Per NCEP ATP III Guidelines: Results lower than 40 mg/dL are suggestive of increased risk for coronary artery disease. Results > or=to 60 mg/dL are considered a negative risk factor. 36 Per NCEP ATP III Guidelines: Normal Population <130 Patients with medical conditions: CHD/DM Optimal: <100 Borderline high: 130-159 High: 160-189 Very high: >189 37 Concerning GFR Guidelines: Normal function or mild [...] drugs that are excreted by the kidneys. 38 Concerning GFR Guidelines for Americans: Normal function or mild renal disease, if clinically at risk: >/=60 mL/min Moderately decreased: 30-59 Severely decreased: 15-29 Renal failure: <15 39 NOT INFECTED WITH HCV, UNLESS RECENT INFECTION IS SUSPECTED OR OTHER EVIDENCE EXISTS TO INDICATE HCV INFECTION. Unless otherwise specified, testing performed by [facility] [address] [place] [id number] 40 This sample is drawn by:CT 41 Results verified by repeat analysis 42 Concerning GFR Guidelines for Americans: Normal function or mild renal disease, if clinically at risk: >/=60 mL/min Moderately decreased: 30-59 Severely decreased: 15-29 Renal failure: <15 43 Concerning GFR Guidelines: Normal function or mild [...] drugs that are excreted by the kidneys. 44 Per NCEP ATP III Guidelines: Results lower than 40 mg/dL are suggestive of increased risk for coronary artery disease. Results > or=to 60 mg/dL are considered a negative risk factor. 45 Per NCEP ATP III Guidelines: Normal Population <130 Patients with medical conditions: CHD/DM Optimal: <100 Borderline high: 130-159 High: 160-189 Very high: >189 46 This sample is drawn by:NB. 47 < 0.90 NEGATIVE > 0.89 AND < 1.09 INDETERMINATE > 1.09 POSITIVE Unless otherwise specified, testing performed by [facility] [address] [place] [id number] 48 Concerning GFR Guidelines for Americans: Normal function or mild renal disease, if clinically at risk: >/=60 mL/min Moderately decreased: 30-59 Severely decreased: 15-29 Renal failure: <15 49 Concerning GFR Guidelines: Normal function or mild [...] drugs that are excreted by the kidneys. 50 Per NCEP ATP III Guidelines: Results lower than 40 mg/dL are suggestive of increased risk for coronary artery disease. Results > or=to 60 mg/dL are considered a negative risk factor. 51 Per NCEP ATP III Guidelines: Optimal: <100 Near optimal: 100-129 Borderline high: 130-159 High: 160-189 Very high: >189 52 Desirable: <130 Borderline High: 130-159 High: 160-189 Very high: 190 or greater 53 This sample is drawn by:CT 54 Concerning GFR Guidelines for Americans: Normal function or mild renal disease, if clinically at risk: >/=60 mL/min Moderately decreased: 30-59 Severely decreased: 15-29 Renal failure: <15 55 Concerning GFR Guidelines: Normal function or mild [...] drugs that are excreted by the kidneys. 56 Per NCEP ATP III Guidelines: Results lower than 40 mg/dL are suggestive of increased risk for coronary artery disease. Results > or=to 60 mg/dL are considered a negative risk factor. 57 Per NCEP ATP III Guidelines: Optimal: <100 Near optimal: 100-129 Borderline high: 130-159 High: 160-189 Very high: >189 58 This sample is drawn by:NB. 59 This sample is drawn by:MM 60 Reference range: 5 to 50 Unit: nmol/L Performed by [facility], [address] [place] [id number] [email or web address], Aby Licona MD, Lab. Director Unless otherwise specified, testing performed by [facility] [address] [place] [id number] 61 Concerning GFR Guidelines for Americans: Normal function or mild renal disease, if clinically at risk: >/=60 mL/min Moderately decreased: 30-59 Severely decreased: 15-29 Renal failure: <15 62 Concerning GFR Guidelines: Normal function or mild [...] drugs that are excreted by the kidneys. 63 This sample is drawn by:CT 64 Concerning GFR Guidelines for Americans: Normal function or mild renal disease, if clinically at risk: >/=60 mL/min Moderately decreased: 30-59 Severely decreased: 15-29 Renal failure: <15 65 Concerning GFR Guidelines: Normal function or mild [...] drugs that are excreted by the kidneys. 66 Per NCEP ATP III Guidelines: Results lower than 40 mg/dL are suggestive of increased risk for coronary artery disease. Results > or=to 60 mg/dL are considered a negative risk factor. 67 Per NCEP ATP III Guidelines: Optimal: <100 Near optimal: 100-129 Borderline high: 130-159 High: 160-189 Very high: >189 68 This sample is drawn by:[facility]. 69 Concerning GFR Guidelines: Normal function or mild [...] drugs that are excreted by the kidneys. 70 Concerning GFR Guidelines for Americans: Normal function or mild renal disease, if clinically at risk: >/=60 mL/min Moderately decreased: 30-59 Severely decreased: 15-29 Renal failure: <15 71 Per NCEP ATP III Guidelines: Results lower than 40 mg/dL are suggestive of increased risk for coronary artery disease. Results > or=to 60 mg/dL are considered a negative risk factor. 72 Per NCEP ATP III Guidelines: Optimal: <100 Near optimal: 100-129 Borderline high: 130-159 High: 160-189 Very high: >189 73 This sample is drawn by:IZABELA 74 Per NCEP ATP III Guidelines: Results lower than 40 mg/dL are suggestive of increased risk for coronary artery disease. Results > or=to 60 mg/dL are considered a negative risk factor. 75 Per NCEP ATP III Guidelines: Optimal: <100 Near optimal: 100-129 Borderline high: 130-159 High: 160-189 Very high: >189 76 This sample is drawn by:NB. 77 Concerning GFR GUIDELINES: Normal Function or Mild [...] excreted by the kidneys. 78 Concerning GFR GUIDELINES: Normal Function or Mild Renal Disease, if clinically at risk: >/=60mL/min Moderately decreased: 30-59 Severely decreased: 15-29 Renal Failure: <15 79 FASTING This sample is drawn by: DB 80 PER NCEP ATP III GUIDELINES: RESULTS LOWER THAN 40 MG/DL ARE SUGGESTIVE OF INCREASED RISK FOR CORONARY ARTERY DISEASE. RESULTS > OR=TO 60 MG/DL ARE CONSIDERED A NEGATIVE RISK FACTOR. 81 PER NCEP ATP III GUIDELINES: OPTIMAL: <100 NEAR OPTIMAL: 100 - 129 BORDERLINE HIGH: 130 - 159 HIGH: 160 - 189 VERY HIGH: >189 82 INTERPRETATION OF CHOL-HDL RATIO CHD RISK FEMALE MALE VERY HIGH >8.3 >14.3 HIGH 5.6 - 8.3 6.7 - 14.3 AVERAGE 3.7 - 5.6 4.0 - 6.7 BELOW AVERAGE 2.5 - 3.7 2.7 - 4.0 PROTECTED <2.5 <2.7 83 FASTING This sample is drawn by:NB. 84 PER NCEP ATP III GUIDELINES: RESULTS LOWER THAN 40 MG/DL ARE SUGGESTIVE OF INCREASED RISK FOR CORONARY ARTERY DISEASE. RESULTS > OR=TO 60 MG/DL ARE CONSIDERED A NEGATIVE RISK FACTOR. 85 INTERPRETATION OF CHOL-HDL RATIO CHD RISK FEMALE MALE VERY HIGH >8.3 >14.3 HIGH 5.6 - 8.3 6.7 - 14.3 AVERAGE 3.7 - 5.6 4.0 - 6.7 BELOW AVERAGE 2.5 - 3.7 2.7 - 4.0 PROTECTED <2.5 <2.7 86 PER NCEP ATP III GUIDELINES: OPTIMAL: <100 NEAR OPTIMAL: 100 - 129 BORDERLINE HIGH: 130 - 159 HIGH: 160 - 189 VERY HIGH: >189 87 The difference between the most recent result of 5.3 and the current result of 4.2 exceeds the absolute delta value of 0.5 as defined for this test. 88 The difference between the most recent result of 10.1 and the current result of 9.6 exceeds the absolute delta value of 0.3 as defined for this test. 89 Concerning GFR GUIDELINES: Normal Function or Mild [...] drugs that are excreted by the kidneys. 90 Concerning GFR GUIDELINES: Normal Function or Mild Renal Disease, if clinically at risk: >/=60mL/min Moderately decreased: 30-59 Severely decreased: 15-29 Renal Failure: <15 91 FASTING This sample is drawn by: DB 92 PER NCEP ATP III GUIDELINES: RESULTS LOWER THAN 40 MG/DL ARE SUGGESTIVE OF INCREASED RISK FOR CORONARY ARTERY DISEASE. RESULTS > OR=TO 60 MG/DL ARE CONSIDERED A NEGATIVE RISK FACTOR. 93 PER NCEP ATP III GUIDELINES: OPTIMAL: <100 NEAR OPTIMAL: 100 - 129 BORDERLINE HIGH: 130 - 159 HIGH: 160 - 189 VERY HIGH: >189 94 INTERPRETATION OF CHOL-HDL RATIO CHD RISK FEMALE MALE VERY HIGH >8.3 >14.3 HIGH 5.6 - 8.3 6.7 - 14.3 AVERAGE 3.7 - 5.6 4.0 - 6.7 BELOW AVERAGE 2.5 - 3.7 2.7 - 4.0 PROTECTED <2.5 <2.7 95 This sample is drawn by:CT 96 Concerning GFR GUIDELINES: Normal Function or Mild [...] drugs that are excreted by the kidneys. 97 Concerning GFR GUIDELINES: Normal Function or Mild Renal Disease, if clinically at risk: >/=60mL/min Moderately decreased: 30-59 Severely decreased: 15-29 Renal Failure: <15 98 FASTING 99 PER NCEP ATP III GUIDELINES: RESULTS LOWER THAN 40 MG/DL ARE SUGGESTIVE OF INCREASED RISK FOR CORONARY ARTERY DISEASE. RESULTS > OR=TO 60 MG/DL ARE CONSIDERED A NEGATIVE RISK FACTOR. 100 PER NCEP ATP III GUIDELINES: OPTIMAL: <100 NEAR OPTIMAL: 100 - 129 BORDERLINE HIGH: 130 - 159 HIGH: 160 - 189 VERY HIGH: >189 101 INTERPRETATION OF CHOL-HDL RATIO CHD RISK FEMALE MALE VERY HIGH >8.3 >14.3 HIGH 5.6 - 8.3 6.7 - 14.3 AVERAGE 3.7 - 5.6 4.0 - 6.7 BELOW AVERAGE 2.5 - 3.7 2.7 - 4.0 PROTECTED <2.5 <2.7 102 RESULT CONFIRMED The difference between the most recent result of 9.4 and the current result of 9.8 exceeds the absolute delta value of 0.3 as defined for this test. 103 Normal Function or Mild Renal Disease, if [...] drugs that are excreted by the kidneys. 104 Negative for Campylobacter, Salmonella, and Shigella. 105 NEGATIVE Note: Specimen was screened only for the presence of Giardia and Cryptosporidium. For patients from or with a history of travel to a developing country or who have persistent symptoms and/or are immunocompromised, please call the Micro lab ([phone]) to request a concentrated microscopic examination of the specimen. Stool samples are saved for 7 days from the time of result reporting. 106 < .90 Neg (No Immunity) .91- 1.09 Equivocal >=1.10 Positive . Procedures Date CPT Code Description Status Comment 12/05/2016 60411 Electrocardiogram Complete Completed 11/07/2016 Mammogram Completed 10/31/2016 Bone Mineral Density Test Completed 10/22/2015 Mammogram Completed 10/05/2015 04188 Electrocardiogram Complete Completed 03/16/2015 34033 Destruction Lesion/Any Method Completed Premalignant Lesions 10/07/2014 56518 Electrocardiogram Complete Completed 08/25/2014 Mammogram Completed 08/15/2014 52076 ECHO Transthoracis 2D W Completed Spectral Doppler 10/09/2013 45996 ECHO Transthoracis 2D W Completed Spectral Doppler 09/02/2013 Colonoscopy Completed Document: 09/02/13 - Colonoscopy 08/30/2013 19334 ECHO Transthoracis 2D W Completed Spectral Doppler 08/26/2013 40194 Destruction Lesion/Any Method Completed Premalignant Lesions 08/26/2013 65304 Electrocardiogram Complete Completed 05/15/2013 Mammogram Completed 08/20/2012 64605 Electrocardiogram Complete Completed 05/07/2012 Mammogram Completed 04/16/2012 61089 Electrocardiogram Complete Completed 10/12/2011 25485 Electrocardiogram Complete Completed 06/13/2011 04356 Electrocardiogram Complete Completed 04/19/2010 Mammogram Completed 12/28/2009 07964 Electrocardiogram Complete Completed 04/16/2009 Mammogram Completed 06/12/2006 53911 Electrocardiogram Complete Completed 03/02/2000 91004 Biopsy Skin Lesion Single Completed Encounters Type Date Location Provider CPT E/M Dx Office Visit 10/11/2017 11:00[place] [address] M67.471 Z68.26 Office Visit 08/14/2017 9:30[place] [address] C83.31 F32.0 E78.2 E55.9 R73.01 K21.0 Office Visit 04/17/2017 8:45[place] [address] F32.0 E78.2 R73.01 E55.9 R22.1 K21.0 Z23 Office Visit 03/27/2017 9:00[place] [address] R22.1 Office Visit 03/20/2017 3:40p [place] [address] R22.1 J01.90 Office Visit 01/16/2017 11:45[place] [address] F32.0 E78.2 R73.01 F41.1 Office Visit 12/05/2016 1:15p [place] [address] Z00.00 E78.2 F32.0 F41.1 E55.9 R73.01 Z12.31 M85.9 Z12.11 K21.0 Office Visit 08/01/2016 8:45[place] [address] E78.2 F41.1 K21.0 R73.01 M25.511 E55.9 R63.5 Office Visit 04/19/2016 8:00[place] [address] F41.1 E78.2 K21.0 E55.9 R73.01 Z23 Office Visit 01/18/2016 9:15[place] [address] E78.0 K21.0 M25.511 F41.1 Office Visit 10/23/2015 9:00[place] [address] R07.2 M25.511 K21.9 R47.02 Office Visit 10/05/2015 10:30[place] [address] Z00.00 M54.2 M25.511 E78.0 F32.0 R73.01 Z12.31 R94.31 E55.9 K21.9 I34.1 Office Visit 09/25/2015 11:40a Avani Major RN [place] [facility] [address] M54.2 M25.511 Office Visit 07/09/2015 1:20p Avani Major RN [place] [facility] [address] J01.00 Office Visit 06/08/2015 8:45[place] [address] F32.0 F41.1 M54.2 E78.0 K21.0 R73.01 E55.9 Office Visit 03/16/2015 11:00[place] [address] F41.1 R03.0 E78.0 L57.0 Z23 Office Visit 11/10/2014 11:45[place] [address] 300.02 Office Visit 10/07/2014 11:45[place] [address] 796.2 268.9 424.0 300.02 Office Visit 07/14/2014 2:15p [place] [address] 719.41 530.11 728.85 Office Visit 08/26/2013 9:00[place] [address] V70.0 272.0 424.0 530.11 V76.10 V76.51 V73.89 268.9 702.0 Office Visit 02/25/2013 9:45[place] [address] 530.11 787.01 272.0 327.23 V04.81 Office Visit 10/30/2012 2:00p [place] [address] 787.01 789.06 794.8 Office Visit 10/16/2012 1:45p Mia De Souza MD 32482K 787.01 789.06 Office Visit 08/20/2012 1:15p [place] [address] V70.0 272.0 790.21 268.9 V76.51 327.23 296.21 Office Visit 04/16/2012 3:45p [place] [address] V72.81 272.0 Office Visit 02/20/2012 3:30[place] [address] 272.0 784.0 V04.81 Office Visit 11/22/2011 2:20p Avani Major RN [place] [facility] [id number] 462 Office Visit 11/18/2011 1:45p [place] [address] 785.1 477.0 Office Visit 10/12/2011 2:00p Avani Major RN [place] [facility] 80715 785.1 786.50 786.05 Office Visit 09/12/2011 9:45a [place] [address] 272.0 790.21 327.23 268.9 784.0 296.21 Office Visit 06/13/2011 1:15p [place] [address] 272.0 268.9 790.21 327.23 784.0 Office Visit 04/19/2011 3:00p Avani Major RN [facility] 85359 719.41 Office Visit 07/05/2010 2:00p [place] [address] 272.0 728.71 Office Visit 05/31/2010 2:00[place] [address] 789.04 728.71 Office Visit 05/10/2010 3:00p [place] [address] 789.04 Office Visit 02/23/2010 3:00[place] [address] 466.0 Office Visit 12/28/2009 1:15p [place] [address] 272.0 268.9 530.11 V76.51 V82.81 Office Visit 06/29/2009 2:00[place] [address] 272.0 268.9 V04.81 Office Visit 06/03/2009 1:45p Avani Major RN [facility] 11320 786.2 Office Visit 12/02/2008 8:00[place] [address] 272.0 530.11 784.0 564.1 477.0 Office Visit 06/13/2008 1:00[place] [address] 530.11 564.1 V76.51 Office Visit 06/03/2008 10:45[place] [address] 272.0 784.0 Office Visit 11/06/2007 8:15[place] [address] 272.0 784.0 Office Visit 06/26/2007 8:15[place] [address] 272.0 784.0 Office Visit 04/09/2007 6:45p [place] [address] 461.0 Office Visit 03/20/2007 8:15[place] [address] 272.0 477.0 V04.81 Office Visit 12/12/2006 10:00[place] [address] 272.0 727.03 477.0 Office Visit 10/24/2006 8:00[place] [address] 272.0 473.0 Office Visit 07/25/2006 10:15[place] [address] 272.0 Office Visit 06/12/2006 10:15[place] [address] 794.31 272.0 783.1 627.2 Office Visit 03/15/2005 8:15[place] [address] 789.09 789.07 V04.81 Office Visit 03/04/2005 8:15[place] [address] 780.6 787.91 789.01 789.00 Office Visit 03/05/2004 2:30[place] [address] 724.2 Office Visit 10/09/2003 8:20[place] [address] 477.0 536.8 Office Visit 08/28/2003 9:50[place] [address] 789.00 787.2 Office Visit 07/07/2003 9:00a Avani Major RN 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 82342 709.8 705.81 Office Visit 05/20/2003 9:20[place] [address] 786.2 Office Visit 04/18/2003 9:50[place] [address] 478.75 784.49 524.60 V04.81 Office Visit 03/06/2003 2:40p Avani Major RN [facility] 08821 465.9 Office Visit 12/24/2002 9:10a Avani Major RN [place] [facility] 64195 524.60 522.5 Office Visit 08/28/2002 11:20a Avani Major RN [place] [facility] 63706 461.0 Office Visit 08/16/2002 9:30[place] [address] 729.5 Office Visit 07/26/2002 9:00[place] [address] 780.79 729.1 728.89 719.50 Office Visit 08/28/2001 8:20[place] [address] 728.85 816.00 Office Visit 08/06/2001 7:00p [place] [address] 840.9 Office Visit 09/21/2000 11:10a Imani Diaz RN A.N.P. 46104 Office Visit 07/24/2000 11:00a Cristy Eller M.D. 34592 Office Visit 07/17/2000 10:20a Cristy Eller M.D. 00544 Plan of Care Future Appointment(s):02/12/2018 11:15 am - Mia Rojas MD at [id number] - Mia Rojas MDF32.0 Major depressive disorder, single episode, mildFollow up:2-3 mos as EV/PEE78.2 Mixed fdomectfyvoevxW82.9 Vitamin D deficiency, pizlhalonygW62.01 Impaired fasting dwaeqhkW36.0 Gastro-esophageal reflux disease with jifhmmjrqkyE33.31 Diffuse large B-cell lymphoma, nodes of head, face, and neckR03.0 Elevated blood-pressure reading, w/o diagnosis of htnG47.01 Insomnia due to medical uejfuvfmdM03.89 Other chest painZ68.25 Body mass index (BMI) 25.0-25.9, adultAllNew Medication:Shingrix 50 mcg
[2017-12-09 19:36] VITALS: BP 152/88
--- NOTE | 2017-12-09 20:00 | UC ---
Respiratory Complaint HPI - HPI Summary HPI Summary: bilateral ear pain and and sinus congestion for almost 2 weeks - History of Current Complaint Chief Complaint: UCRespiratory Stated Complaint: COUGH/ EAR PAIN Time Seen by Provider: 12/09/17 19:49 Hx Obtained From: Patient Hx Last Menstrual Period: tubal ligation ?: No Onset/Duration: Gradual Onset, Lasting Weeks - 2 Timing: Constant Pain Intensity: 6 Pain Scale Used: 0-10 Numeric Character: Cough: Nonproductive Alleviating Factors: Nothing Associated Signs And Symptoms: Positive: URI, Nasal Congestion, Sinus Discomfort - Allergies/Home Medications Allergies/Adverse Reactions: Allergies Allergy/AdvReac Type Severity Reaction Status Date / Time No Known Allergies Allergy Verified 12/09/17 19:35 Home Medications: Home Medications Pseudoephedrine TAB* [Sudafed TAB*] PRN 12/09/17 [History] PMH/Surg Hx/FS Hx/Imm Hx Previously Healthy: No Endocrine History: Hypothyroidism, Dyslipidemia Psychological History: Depression - Surgical History Surgical History: Yes Surgery Procedure, Year, and Place: tubal ligation. BREAST LUMPECTOMY 1994. 2011 UTERINE POLYPECTOMY ANABEL. Kidney Stone surgery - With Dr. Motley. LEFT NECK LYMPH NODE REMOVAL 04/2017 - Family History Known Family History: Positive: None - Social History Occupation: Employed Full-time Lives: With Family Alcohol Use: None Substance Use Type: None Smoking Status (MU): Never Smoked Tobacco Household Exposure Type: Cigarettes - Immunization History Most Recent Influenza Vaccination: 2014 Most Recent Tetanus Shot: 2010 Most Recent Pneumonia Vaccination: never Review of Systems Constitutional: Negative Skin: Negative Eyes: Negative ENT: Dental Pain, Ear Ache, Nasal Discharge, Sinus Congestion, Sinus Pain/ Tenderness Respiratory: Cough Cardiovascular: Negative Gastrointestinal: Negative Genitourinary: Negative Motor: Negative Neurovascular: Negative Musculoskeletal: Negative Neurological: Negative Psychological: Negative Is Patient Immunocompromised?: No All Other Systems Reviewed And Are Negative: Yes Physical Exam Triage Information Reviewed: Yes Appearance: Well-Appearing, No Pain Distress, Well-Nourished Vital Signs: Initial Vital Signs Temp 99 F 12/09/17 19:30 Pulse 90 12/09/17 19:30 Resp 16 12/09/17 19:30 BP 152/88 12/09/17 19:30 Pulse Ox 97 12/09/17 19:30 Vital Signs Reviewed: Yes Eye Exam: Normal Eyes: Positive: Conjunctiva Clear ENT Exam: Normal ENT: Positive: Normal ENT inspection, Hearing grossly normal, Pharynx normal, Nasal congestion, Nasal drainage, TMs normal, Dental tenderness, Sinus tenderness, Uvula midline. Negative: Tonsillar swelling, Trismus, Muffled voice , Hoarse voice Dental Exam: Normal Neck exam: Normal Neck: Positive: Supple, Nontender, No Lymphadenopathy Respiratory Exam: Normal Respiratory: Positive: Chest non-tender, Lungs clear, Normal breath sounds, No respiratory distress, No accessory muscle use Cardiovascular Exam: Normal Cardiovascular: Positive: RRR, No Murmur, Pulses Normal, Brisk Capillary Refill Musculoskeletal Exam: Normal Musculoskeletal: Positive: Strength Intact, ROM Intact, No Edema Neurological Exam: Normal Neurological: Positive: Alert, Muscle Tone Normal Psychological Exam: Normal Skin Exam: Normal UC Diagnostic Evaluation - Laboratory O2 Sat by Pulse Oximetry: 97 Respiratory Course/Dx - Course Course Of Treatment: nasal rinse flonase, zyrtec/sudafed,probiotic augmentin follow with pcp prn - Differential Dx/Diagnosis Provider Diagnoses: acute rhinosinusitis Discharge - Sign-Out/Discharge Documenting (check all that apply): Patient Departure - Discharge Plan Condition: Stable Disposition: HOME Prescriptions: Amoxicillin/Clavulanate TAB* [Augmentin TAB 875*] 875 mg PO BID #19 tab Patient Education Materials: Sinusitis (ED), Hypertension (ED), Nasal Rinse (ED ), How to Use Nasal [place] (ED) Referrals: Mia Dejesus MD [Primary Care Provider] - 2 Days Additional Instructions: 1. please add a probiotic supplement daily 2. to ED for fevers! 3. continue with Flonase - Billing Disposition and Condition Condition: STABLE Disposition: Home
[2017-12-09] MEDS ORDERED: Amoxicillin/Clavulanate TAB* 875 MG PO ONE (20:02)
== END 2017-12-09 20:28 | disposition home or self-care (01) ==
LOC: UCEAST 19:26
DX: J01.90 Acute sinusitis, unspecified (principal); H92.03 Otalgia, bilateral; E03.9 Hypothyroidism, unspecified; E78.5 Hyperlipidemia, unspecified; F32.9 Major depressive disorder, single episode, unspecified
CPT/HCPCS: 99212; A9270-GY; G0463